=== PATIENT | female | born 1995 | race Caucasian/White ===

== ENCOUNTER → 2017-11-09 15:41 | Outpatient (CLI) | payer BC, SELFPAY ==
[2017-11-12 12:12] LABS: HPV Reflexed? NOT INDICATED
== END ==
PROVIDERS: Family Provider Family Medicine; PCP Family Medicine; Visit Provider Nurse Practitioner Women's Health
DX: Z12.4 Encounter for screening for malignant neoplasm of cervix (principal)
CPT/HCPCS: 88175; G0145

== ENCOUNTER → 2018-12-27 16:53 | Outpatient (CLI) | payer OTHER, SELFPAY ==
[2018-12-27 11:46] VITALS: BMI 32.8
[2018-12-27 21:39] LABS: Chlamydia Trachomatis by PCR Negative (Negative); Neisserai gonorrhoeae by PCR Negative (Negative); Probe Check PASS; Sample Adequacy Control PASS; Specimen Processing Control PASS
== END ==
PROVIDERS: Family Provider Family Medicine; PCP Family Medicine; Referring Provider Nurse Practitioner Women's Health; Visit Provider Nurse Practitioner Women's Health
DX: Z11.3 Encounter for screening for infections with a predominantly sexual mode of transmission (principal)
CPT/HCPCS: 87491; 87591

== ENCOUNTER → 2021-06-25 16:15 | Outpatient (CLI) | payer OTHER, SELFPAY ==
[2021-07-02 08:44] LABS: HPV Reflexed? NOT INDICATED
== END ==
PROVIDERS: PCP Family Medicine; Referring Provider Nurse Practitioner Women's Health; Visit Provider Nurse Practitioner Women's Health
DX: Z12.4 Encounter for screening for malignant neoplasm of cervix (principal)
CPT/HCPCS: 88175; G0145

== ENCOUNTER → 2022-08-05 | Outpatient (CLI) | payer OTHER, SELFPAY ==
[2022-08-06 22:06] LABS: Chlamydia By Nucleic Acid AMP Negative (Negative)
[2022-08-06 22:36] LABS: Gonococcus By Nucleic Acid AMP Negative (Negative)
== END | disposition home or self-care (01) ==
PROVIDERS: PCP Family Medicine; Visit Provider Obstetrics & Gynecology
DX: Z34.90 Encounter for supervision of normal pregnancy, unspecified, unspecified trimester (principal)
CPT/HCPCS: 87086; 87491; 87591

== ENCOUNTER → 2022-09-03 | Outpatient (CLI) | payer OTHER, SELFPAY ==
[2022-09-03 13:04] LABS: Absolute Lymphocyte Count 2.06 X10^3/uL (0.83-4.51); Absolute Neutrophil Count 6.5 X10^3/uL (2.0-7.7); Basophil# 0.03 X10^3/uL; Basophil% 0.3 % (0-1); Eosinophil# 0.09 X10^3/uL; Hematocrit 37.2 % (37-47); Hemoglobin 12.2 g/dL (12.0-15.0); Lymphocyte # 2.06 X10^3/ul (0.83-4.51); Lymphocyte % 21.8 % (19-41); Mean Corp Hgb Conc 32.8 g/dL (32-36); Mean Corpuscular Hgb 26.9 pg (27.0-32.0); Mean Corpuscular Volume 82.1 fL (81-99); Mean Platelet Vol. 10.2 fl (6.2-12.0); Monocyte# 0.64 X10^3/uL; Monocyte% 6.8 % (0-10); NRBC Flagged by Analyzer 0 % (0-5); Neutrophil # 6.48 X10^3/uL (2.7-7.7); Neutrophil % 68.6 % (47-70); Platelet Count 287 K/mm3 (150-450); RBC Distribution Width CV 13.1 % (11.6-14.6); RBC Distribution Width SD 38.9 fl (35.1-43.9); Red Blood Count 4.53 M/mm3 (4.2-5.4); White Blood Count 9.4 K/mm3 (4.4-11.0)
[2022-09-03 13:32] LABS: Glucose Challenge Gest 1H 50g 104 mg/dL (70-140)
[2022-09-03 14:16] LABS: HIV - WCH Non-Reactive (Nonreactive); Hepatitis B Surface Antigen Non-Reactive (Nonreactive); Hepatitis C Antibody Non-Reactive (Nonreactive); Rubella IgG Reactive (Nonreactive); Syphilis Antibodies Non-reactive
== END | disposition home or self-care (01) ==
PROVIDERS: Referring Provider Obstetrics & Gynecology; Visit Provider Obstetrics & Gynecology
DX: O99.210 Obesity complicating pregnancy, unspecified trimester (principal)
CPT/HCPCS: 36415; 82950; 85025; 86703; 86762; 86780; 86803; 86850; 86900; 86901; 87340

== ENCOUNTER → 2022-10-08 | Outpatient (CLI) | payer OTHER, SELFPAY ==
--- NOTE | 2022-10-08 13:09 | US_ITS ---
STUDY: SECOND AND THIRD TRIMESTER OBSTETRICAL ULTRASOUND REASON FOR EXAM: Female, 27 years old anatomy LMP: May 28, 2022. TECHNIQUE: Transabdominal and Transvaginal TECHNICAL QUALITY: Adequate. PRIOR ULTRASOUND: None. FINDINGS: There is a single intrauterine fetus. The fetus is in a variable presentation. There is demonstrated cardiac activity with a heart rate of 159 bpm. There is a normal amniotic fluid volume. The largest amniotic fluid pocket measures 7.2 cm x 4.8 cm. The amniotic fluid index (KEVEN) is within normal limits. The placenta is anterior in location and is not low lying. There are Grade 0 placental changes. The cervix measures 3.8 cm in length. The bilateral adnexal regions are normal. BIOMETRY: BPD: 4.26 cm: 18 weeks, 6 days HC: 15.78 cm: 18 weeks, 5 days AC: 13.73 cm: 19 weeks, 1 days FL: 3.08 cm: 19 weeks, 4 days CI: 77% FL/BPD: 72% FL/HC: FL/AC: 22% HC/AC: 1.15 age by current US: 19 weeks, 0 days. SANTOSH by current US: March 04, 2023. Estimated weight: 284 grams, +/- 43 grams, 62 %. Age by LMP: 19 weeks, 0 days. SANTOSH by LMP: March 04, 2023. ANATOMY: Gender: Female Cranium: Normal lateral ventricles. Normal choroid plexus. Normal cerebellum. Normal cisterna magna. Normal face, nose and lips. Chest: Normal 4-chamber heart. Abdomen/Pelvis: Normal diaphragm. Normal stomach. Normal abdominal wall. Normal cord insertion. Normal 3 vessel cord. Normal kidneys. Normal bladder. Spine: Normal cervical spine. Normal thoracic spine. Normal lumbar spine. Normal sacrum. Extremities: Normal bilateral upper extremities. Normal bilateral lower extremities. US/OB Anatomy Scan IMPRESSION: Single live uterine gestation with a mean gestational age of 19 weeks. Electronically Signed: Alireza Mayorga MD at 13:55 EDT ,
== END | disposition home or self-care (01) ==
PROVIDERS: Visit Provider Obstetrics & Gynecology
DX: Z34.92 Encounter for supervision of normal pregnancy, unspecified, second trimester (principal)
CPT/HCPCS: 76805; 76817

== ENCOUNTER → 2022-12-10 | Outpatient (CLI) | payer OTHER, SELFPAY ==
[2022-12-10 15:34] LABS: Absolute Lymphocyte Count 1.97 X10^3/uL (0.83-4.51); Absolute Neutrophil Count 7.3 X10^3/uL (2.0-7.7); Basophil# 0.03 X10^3/uL; Basophil% 0.3 % (0-1); Hematocrit 37.7 % (37-47); Hemoglobin 11.8 g/dL (12.0-15.0); Lymphocyte # 1.97 X10^3/ul (0.83-4.51); Lymphocyte % 19.4 % (19-41); Mean Corp Hgb Conc 31.3 g/dL (32-36); Mean Corpuscular Hgb 27.4 pg (27.0-32.0); Mean Corpuscular Volume 87.7 fL (81-99); Mean Platelet Vol. 10.4 fl (6.2-12.0); Monocyte# 0.66 X10^3/uL; Monocyte% 6.5 % (0-10); NRBC Flagged by Analyzer 0 % (0-5); Neutrophil # 7.32 X10^3/uL (2.7-7.7); Neutrophil % 71.9 % (47-70); Platelet Count 303 K/mm3 (150-450); RBC Distribution Width CV 13.9 % (11.6-14.6); White Blood Count 10.2 K/mm3 (4.4-11.0)
[2022-12-10 16:24] LABS: Glucose Challenge Gest 1H 50g 116 mg/dL (70-140)
[2022-12-10 16:58] LABS: HIV - WCH Non-Reactive (Nonreactive); Syphilis Antibodies Non-reactive
== END | disposition home or self-care (01) ==
LOC: LAB 14:33
PROVIDERS: Visit Provider Obstetrics & Gynecology
DX: O09.90 Supervision of high risk pregnancy, unspecified, unspecified trimester (principal); Z3A.00 Weeks of gestation of pregnancy not specified
CPT/HCPCS: 36415; 82950; 85025; 86703; 86780; 86900; 86901

== ENCOUNTER → 2023-02-05 | Outpatient (CLI) | payer OTHER, SELFPAY | END | disposition home or self-care (01) | LOC: LABSPEC 16:23 | PROVIDERS: Referring Provider Obstetrics & Gynecology; Visit Provider Obstetrics & Gynecology | DX: O09.90 Supervision of high risk pregnancy, unspecified, unspecified trimester (principal); Z3A.00 Weeks of gestation of pregnancy not specified | CPT/HCPCS: 87081 ==

== ENCOUNTER 2023-03-04 06:33 | Inpatient (IN) | payer OTHER, SELFPAY ==
[2023-03-04] VITALS (61 sets, daily range): BP systolic 97–141; BP diastolic 52–87; PULSE 48–143; TEMP 36.1–36.6; O2SAT 80–100; BMI 42.9
--- NOTE | 2023-03-04 08:13 | HP.PCM.OB_ITS ---
HPI - General General Date of Admission: 03/04/23 HPI Narrative GIN OLEA, is a 28 F who presents IAL 5 cm dilated regular ctx no vb lof admits good fm Maternal Data Information SANTOSH Calculator Estimated Delivery Date Method Current WG Current Estimate 03/04/23 LMP (Certain) 40w 0d Other Estimates 03/04/23 Ultrasound #1 40w 0d PFSH PFSH Medical History Hx: UTI (urinary tract infection) Home Medications multivit-min no.71-iron fum 28 mg-folate no.1 1 mg-dha 300 mg capsule (PNV- [place]) 1 cap PO 07/30/22 [History Last Taken 03/03/23] Allergy/AdvReac Type Severity Reaction Status Date / Time No Known Allergies Allergy Verified 03/04/23 08:01 Family History Father Hypertension Grandfather Hypertension Social History adopted: No household members: spouse housing: house current occupational status: employed 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 current occupational exposures/hazards: No pets and animals: Yes (Not managing litterbox ) pets and animals: cat(s) and dog(s) history of recent travel: No sexually active: Yes Smoking Status: Never smoker alcohol intake: current details: occasionally- not while substance use type: does not use well-balanced diet: daily or most days caffeine: Yes (occasionally) Type: coffee Number of servings: 1 eating out: 1-3 times/week during the past year weight has: remained stable what type of physical activity do you participate in: walking, yoga and weight training frequency: 1-2 times per week duration: 15-30 minutes/day fam/latter-day: Faith seatbelt use: always do you feel safe at home: Yes additional social history: - Augustine- Currently in [facility] 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 History 1 Elective abortions Hx Para 0 Spontaneous abortions Hx # Term Pregnancies Ectopic pregnancies Hx # Pregnancies Multiple births # of living children Visit Details Expected Delivery Route/Plan Labor Preferences- CB/BF classes: [] labor support person: [] labor intervention preferences: [] pain management options preferred: [] cut cord/dad catch: [] : [] PP control planned: [] discussed possible routes of delivery and associated risks: [] special requests: [] Plans Covid status: discussed Flu vaccine: discussed Tdap vaccine: given Rhogam: given LARC form signed: [] movement and labor precautions reviewed. Problem list reviewed and updated with the most current plan of care details and appropriate orders placed. Relevant counseling for the gestational age provided. Continue routine care and follow up unless otherwise noted in visit notes/problem list details OB Flowsheet Initial Weight: Not Recorded Date -?-?-?-?-?-?-?--?-?-?-?-?- EGA Weight BP Urine Prot -?-?-?-?-?-?-?-?-?-?-?-?- Glucose FHR FuHt Pres Dilation -?-?-?-?-?-?-?-?-?-?-?-?- Effaced St Visit Note 08/05/22 -?-?-?-?-?-?-?-?-?-?-?-?- 9w 6d 232 lb 118/76 -?-?-?-?-?-?-?-?-?-?-?-?- 189 -?-?-?-?-?-?-?-?-?-?-?-?- JV- single live IUP measuring 9 weeks 6 days consistent with LMP. undecided about NIPT. 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 no complaints. 10/30/22 -?-?-?-?-?-?-?-?-?-?-?-?- 22w 1d 234 lb 2 oz 118/77 Nega tive -?-?-?-?-?-?-?-?-?-?-?-?- Negative 150 -?-?-?-?-?-?-?-?-?-?-?-?- SM- no vb lof go od fm no regular ctx 11/27/22 -?-?-?-?-?-?-?-?-?-?-?-?- 26w 1d 237 lb 8 oz 101/60 Nega tive -?-?-?-?-?-?-?-?-?-?-?-?- Negative 138 27 -?-?-?-?-?-?-?-?-?-?-?-?- JV- no lof, vagi nal bleeding, or dec fm. glucola ordered. 12/10/22 -?-?-?-?-?-?-?-?-?-?-?-?- 28w 0d 241 lb 2 oz 106/70 Nega tive -?-?-?-?-?-?-?-?-?-?-?-?- Negative 140 29 -?-?-?-?-?-?-?-?-?-?-?-?- SM- no vb lof go od fm no regular ctx cbc gct rhogam tdap today 12/24/22 -?-?-?-?-?-?-?-?-?-?-?-?- 30w 0d 242 lb 110/69 Negative -?-?-?-?-?-?-?-?-?-?-?-?- Negative 142 30 -?-?-?-?-?-?-?-?-?-?-?-?- JV- rhogam given last visit. no complaints. plan for nsts at 34 weeks weekly for obesity. 01/08/23 -?-?-?-?-?-?-?-?-?-?-?-?- 32w 1d 247 lb 107/61 Negative -?-?-?-?-?-?-?-?-?-?-?-?- Negative 149 33 Transverse -?-?-?-?-?-?-?-?-?-?-?-?- JV- no lof, vagi nal bleeding, or dec fm. nst next visit. 01/22/23 -?-?-?-?-?-?-?-?-?-?-?-?- 34w 1d 249 lb 8 oz 124/70 Nega tive -?-?-?-?-?-?-?-?-?-?-?-?- Negative 155 35 -?-?-?-?-?-?-?-?-?-?-?-?- KW-+fm, No vb/lo f/ctx. some swelling in feet when working-recommended compression hose. GBS discussed. LARC done 01/29/23 -?-?-?-?-?-?-?-?-?-?--?-?- 35w 1d 250 lb 128/82 Negative -?-?-?-?-?-?-?-?-?-?-?-?- Negative 135 -?-?-?-?-?-?-?-?-?-?-?-?- Lc- reactive nst toady.no lof/vb/ctx. 02/05/23 -?-?-?-?-?-?-?-?-?-?-?-?- 36w 1d 253 lb 125/73 Negative -?-?-?-?-?-?-?-?-?-?-?-?- Negative 130 36 Cephalic 0 -?-?-?-?-?-?-?-?-?--?-?-?-
--- NOTE | 2023-03-04 08:13 | PCM.HP.OB ---
HPI - General General Date of Admission: 03/04/23 HPI Narrative GIN OLEA, is a 28 F who presents IAL 5 cm dilated regular ctx no vb lof admits good fm Maternal Data Information SANTOSH Calculator Estimated Delivery Date Method Current WG Current Estimate 03/04/23 LMP (Certain) 40w 0d Other Estimates 03/04/23 Ultrasound #1 40w 0d PFSH PFSH Medical History Hx: UTI (urinary tract infection) Home Medications multivit-min no.71-iron fum 28 mg-folate no.1 1 mg-dha 300 mg capsule (PNV-[place]) 1 cap PO 07/30/22 [History Last Taken 03/03/23] Allergy/AdvReac Type Severity Reaction Status Date / Time No Known Allergies Allergy Verified 03/04/23 08:01 Family History Father Hypertension Grandfather Hypertension Social History adopted: No household members: spouse housing: house current occupational status: employed 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 current occupational exposures/hazards: No pets and animals: Yes (Not managing litterbox ) pets and animals: cat(s) and dog(s) history of recent travel: No sexually active: Yes Smoking Status: Never smoker alcohol intake: current details: occasionally- not while substance use type: does not use well-balanced diet: daily or most days caffeine: Yes (occasionally) Type: coffee Number of servings: 1 eating out: 1-3 times/week during the past year weight has: remained stable what type of physical activity do you participate in: walking, yoga and weight training frequency: 1-2 times per week duration: 15-30 minutes/day fam/cheondoism: Alevism seatbelt use: always do you feel safe at home: Yes additional social history: - [place]- 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 1 Elective abortions Hx Para 0 Spontaneous abortions Hx # Term Pregnancies Ectopic pregnancies Hx # Pregnancies Multiple births # of living children Visit Details Expected Delivery Route/Plan Labor Preferences- CB/BF classes: [] labor support person: [] labor intervention preferences: [] pain management options preferred: [] cut cord/dad catch: [] : [] PP control planned: [] discussed possible routes of delivery and associated risks: [] special requests: [] Plans Covid status: discussed Flu vaccine: discussed Tdap vaccine: given Rhogam: given LARC form signed: [] movement and labor precautions reviewed. Problem list reviewed and updated with the most current plan of care details and appropriate orders placed. Relevant counseling for the gestational age provided. Continue routine care and follow up unless otherwise noted in visit notes/problem list details OB Flowsheet Initial Weight: Not Recorded Date <del>?</del> EGA Weight BP Urine Prot <del>?</del> Glucose FHR FuHt Pres Dilation <del>?</del> Effaced St Visit Note 08/05/22 <del>?</del> 9w 6d 232 lb 118/76 <del>?</del> 189 <del>?</del> JV- single live IUP measuring 9 weeks 6 days consistent with LMP. undecided about NIPT. 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 no complaints. 10/30/22 <del>?</del> 22w 1d 234 lb 2 oz 118/77 Negative <del>?</del> Negative 150 <del>?</del> SM- no vb lof good fm no regular ctx 11/27/22 <del>?</del> 26w 1d 237 lb 8 oz 101/60 Negative <del>?</del> Negative 138 27 <del>?</del> JV- no lof, vaginal bleeding, or dec fm. glucola ordered. 12/10/22 <del>?</del> 28w 0d 241 lb 2 oz 106/70 Negative <del>?</del> Negative 140 29 <del>?</del> SM- no vb lof good fm no regular ctx cbc gct rhogam tdap today 12/24/22 <del>?</del> 30w 0d 242 lb 110/69 Negative <del>?</del> Negative 142 30 <del>?</del> JV- rhogam given last visit. no complaints. plan for nsts at 34 weeks weekly for obesity. 01/08/23 <del>?</del> 32w 1d 247 lb 107/61 Negative <del>?</del> Negative 149 33 Transverse <del>?</del> JV- no lof, vaginal bleeding, or dec fm. nst next visit. 01/22/23 <del>?</del> 34w 1d 249 lb 8 oz 124/70 Negative <del>?</del> Negative 155 35 <del>?</del> KW-+fm, No vb/lof/ctx. some swelling in feet when working-recommended compression hose. GBS discussed. LARC done 01/29/23 <del>?</del> 35w 1d 250 lb 128/82 Negative <del>?</del> Negative 135 <del>?</del> Lc- reactive nst toady.no lof/vb/ctx. 02/05/23 <del>?</del> 36w 1d 253 lb 125/73 Negative <del>?</del> Negative 130 36 Cephalic 0 <del>?</del> JV- no lof, vaginal bleeding, or dec fm. contractions on monitor. gbs collected. 02/12/23 <del>?</del> 37w 1d 253 lb 6 oz 104/72 Negative <del>?</del> Negative 140 37 <del>?</del> SM- no vb lof good fm no regular ctx 02/19/23 <del>?</del> 38w 1d 257 lb 8 oz 118/76 Negative <del>?</del> Negative 145 38 Cephalic 1 <del>?</del> 50 -3 JV- no lof, vaginal bleeding, or dec fm. NST reactive. 02/25/23 <del>?</del> 39w 0d 256 lb 123/77 Negative <del>?</del> Negative 150 39 Cephalic 1 <del>?</del> -3 JV- unable to reach internal os today. bedside scan confirmed vtx. reactive nst. 03/03/23 <del>?</del> 39w 6d 258 lb 8 oz 118/76 Negative <del>?</del> Negative 140 39 Cephalic 2 <del>?</del> 60 -2 JV- NST reactive. membranes bulging today with bloody show. plan 41 week IOL if no labor by next NST FHR Rate Baby A Baseline: 140 Variability:: Moderate Accelerations:: 15 x 15 Decelerations:: None NST Reactive:: Yes FHR Category:: Category I Uterine Activity:: q3-5 ROS Constitutional Constitutional: Reports systems reviewed and no addt'l complaints, except as documented ENT HEENT: Reports systems reviewed and no addt'l complaints, except as documented Cardiovascular Cardiovascular: Reports systems reviewed and no addt'l complaints, except as documented Respiratory/Chest Respiratory/Chest: Reports systems reviewed and no addt'l complaints, except as documented Gastrointestinal Gastrointestinal: Reports systems reviewed and no addt'l complaints, except as documented and nausea; Denies abdominal pain Genitourinary Genitourinary: Reports systems reviewed and no addt'l complaints, except as documented, contractions Details: present and frequency (regular ) and movement Details: present Musculoskeletal Musculoskeletal: Reports systems reviewed and no addt'l complaints, except as documented Integumentary Integumentary: Reports as per HPI Neurologic Neurologic: Reports systems reviewed and no addt'l complaints, except as documented Endocrine Endocrinology: Reports systems reviewed and no addt'l complaints, except as documented Vital Signs Vital Signs Vital Signs: 03/04/23 06:44 03/04/23 06:44 03/04/23 06:45 Temperature Temperature Source Pulse Rate 86 Blood Pressure 139/78 H BP Systolic 139 BP Diastolic 78 Pulse Ox 98 03/04/23 06:45 03/04/23 06:43 03/04/23 06:43 Temperature Temperature Source Temporal Pulse Rate 81 Blood Pressure BP Systolic BP Diastolic Pulse Ox 99 03/04/23 06:43 03/04/23 07:39 03/04/23 07:39 Temperature 97.5 F L Temperature Source Pulse Rate 88 Blood Pressure 112/76 BP Systolic 112 BP Diastolic 76 Pulse Ox Weight Weight: 258 lb Body Mass Index (BMI) 42.9 Physical Exam Const alert, oriented x3 and healthy appearing Constitutional Narrative: uncomfortable with contractions HEENT normocephalic and moist oral mucous membranes Head and Scalp: atraumatic Neck full ROM, no lymphadenopathy, supple and thyroid normal General: trachea midline Thyroid: thyroid normal Lymph Lymphatic: no lymphadenopathy noted Chest inspection of chest normal Resp normal respiratory effort Cardio regular rate GI normal to inspection, nondistended, normoactive bowel sounds, soft to palpation and non-tender Inspection: gravid external exam normal Bimanual Exam - Vag & Uterus: uterus non-tender Manual OB Exam: estimated gestational size appropriate, presentation cephalic, dilated, effaced and station Extremity normal to inspection General Extremity: Negative for edema Skin no rashes or lesions noted Neuro deep tendon reflexes 2+ bilaterally Motor Exam: strength 5/5 throughout and clonus absent Psych mental status grossly normal Labs Labs Labs: Blood Type A NEGATIVE Antibody Screen NEGATIVE Hct 39.4 % (37-47) Hgb 12.8 g/dL (12.0-15.0) Obstetrics US Syphilis Total Ab Non-reactive Rubella IgG Antibody Reactive (Nonreactive) Hep Bs Antigen Non-Reactive (Nonreactive) Chlamydia DNA (AUDREY) Negative (Negative) Neisseria gonorrhoeae DNA (AUDREY) Negative (Negative) HIV 1&2 Antibody Non-Reactive (Nonreactive) Glucose 1 Hr 50 gm 116 mg/dL (70-140) Assessment & Plan (1) : QUALIFIERS: Weeks of gestation: 39 weeks Qualified Code(s): Z3A.39 - 39 weeks gestation of COMMENT: GBS negative. declined genetic & carrier testing, nl anatomy (2) Supervision of high risk , antepartum: COMMENT: PRR , SANTOSH 03/04/23 girl [place] (3) Obesity affecting : COMMENT: 1 TM GCT encouraged healthy weight gain for BMI 40 needs nsts at 34 weeks weekly (4) Rh negative status during : COMMENT: Rhogam at 28 weeks and PRN given 6/8 (5) Active labor at term: PLAN: Plan Patient presents IAL, plan expectant management for , pitocin/AROM PRN if needed. Pain management: prefers minimal intervention. GBS neg. Management of any complications: none I have reviewed the [facility] and made any clinically relevant updates.
[2023-03-04] MEDS: 0.9% Saline Lock 10 ML Syringe IV (08:21)
[2023-03-04 08:47] LABS: Absolute Lymphocyte Count 1.42 X10^3/uL (0.83-4.51); Absolute Neutrophil Count 10.4 X10^3/uL (2.0-7.7); Basophil# 0.04 X10^3/uL; Basophil% 0.3 % (0-1); Eosinophil# 0.02 X10^3/uL; Eosinophils% 0.2 % (0-5); Hematocrit 39.4 % (37-47); Hemoglobin 12.8 g/dL (12.0-15.0); Lymphocyte # 1.42 X10^3/ul (0.83-4.51); Lymphocyte % 11.3 % (19-41); Mean Corp Hgb Conc 32.5 g/dL (32-36); Mean Corpuscular Hgb 27.1 pg (27.0-32.0); Mean Corpuscular Volume 83.3 fL (81-99); Mean Platelet Vol. 11.7 fl (6.2-12.0); Monocyte% 4.8 % (0-10); NRBC Flagged by Analyzer 0 % (0-5); Neutrophil # 10.36 X10^3/uL (2.7-7.7); Neutrophil % 82.8 % (47-70); Platelet Count 244 K/mm3 (150-450); RBC Distribution Width CV 14.1 % (11.6-14.6); RBC Distribution Width SD 42.8 fl (35.1-43.9); Red Blood Count 4.73 M/mm3 (4.2-5.4); White Blood Count 12.5 K/mm3 (4.4-11.0)
[2023-03-04 08:58] LABS: AST(SGOT) 20 U/L (15-37); Alanine Aminotransfer ALT/SGPT 16 U/L (13-56); Creatinine, Serum 0.58 mg/dL (0.55-1.02); EST Glomerular Filtration Rate 132 mL/min (>60); Est Glom Filt Rate - Afr Amer 160 mL/min (>60); Estimated Creatinine Clearance 129.94 ml/min; Uric Acid 6.1 mg/dL (2.6-6.0)
[2023-03-04 09:31] LABS: Syphilis Antibodies Non-reactive
[2023-03-04 10:46] LABS: Protein, Urine (Random) 64.5 mg/dL (<11.9); Protein:Creat Ratio 222 mg/g CRE (0-200)
[2023-03-04] MEDS: Mag Hydrox/Al Hydrox/Simeth 30 ML UDC PO (12:15)
--- NOTE | 2023-03-04 20:36 | OP.PCM_ITS ---
Assessment & Plan (1) : QUALIFIERS: Weeks of gestation: 39 weeks Qualified Code(s): Z3A.39 - 39 weeks gestation of COMMENT: GBS negative. declined genetic & carrier testing, nl anatomy (2) Supervision of high risk , antepartum: COMMENT: PRR , SANTOSH 03/04/23 girl [place] (3) Obesity affecting : COMMENT: 1 TM GCT encouraged healthy weight gain for BMI 40 needs nsts at 34 weeks weekly (4) Rh negative status during : COMMENT: Rhogam at 28 weeks and PRN given 12/10 (5) Active labor at term: (6) Vaginal delivery: COMMENT: SM IAL 40 girl [place] Maternal Data Information SANTOSH Calculator Estimated Delivery Date Method Current WG Current Estimate 03/04/23 LMP (Certain) 40w 0d Other Estimates 03/04/23 Ultrasound #1 40w 0d Vaginal Delivery Operative Information Date of Procedure: 03/04/23 Pre-Operative Diagnosis: see a/p diagnoses Post-Operative Diagnosis: same Surgery / Procedure Performed: Spontaneous Vaginal Delivery Type of Anesthesia: None Special Medications: none Estimated Blood Loss: 200 Fluids Replaced: crystalloid Findings Description of Procedure: Patient began pushing and delivered the head in the COLEMAN presentation. The head was delivered atraumatically . The anterior and posterior shoulders delivered without complication followed by the rest of the infant and the infant was placed on the maternal abdomen. Delayed cord clamping was employed for approximately 60 seconds. Cord was clamped and cut and gentle traction was applied to the cord and the placenta delivered spontaneously immediately following it was noted to be intact with three-vessel cord. The perineum and vagina were inspected and noted to have no laceration. EBL was 200 cc. Patient and infant tolerated delivery well. Amniotic Fluid Description: Moderate meconium Placental Delivery Description: Spontaneous Placenta Disposition: [facility] Cord Vessel Description: 3 Vessels Cord Entanglement: None Delayed Cord Clamping: Yes Post Vaginal Delivery Medications Given After Delivery: IV Pitocin Episiotomy Description: None Complication Complications: None Procedures Urinary/Genital [id number]: [id number] Vaginal Delivery [facility]
[2023-03-04] MEDS: Oxytocin 10 UNITS/ML Vial IM (21:13)
[2023-03-04] MEDS: Oxytocin 15 Units/NS 250ml 15 UNITS/250 ML IV.SOLN 83 UNITS IV (21:14)
--- NOTE | 2023-03-04 21:16 | DCINST_ITS ---
Discharge Instructions Diet Discharge Diet: No restrictions Activity Discharge Activity: Return to Normal Activity, May Not Drive (while taking narcotic pain medications.) and May Shower May resume sexual activity in: 4-6 weeks Dressing / Incision Call your doctor if your incision/area has: Continuous Slow Oozing, Sudden Increased Bleeding, Increased Pain/ Swelling, Increased Redness and Foul Smelling Discharge Follow Up Care Please Follow Up With: Cony Pride MD When: Call [phone] to make an appointment with your doctor in 6 weeks. If you had elevated blood pressure or 4th degree laceration, you will need to be seen in 2 weeks. Test Results: Test results from this visit will be discussed in further detail at your follow- up appointment, if applicable. Discharge Plan Admission Admit Date/Time: 03/04/23 06:33 Attending Provider: Cony Pride Primary Care Provider: Care Physician,No Primary Discharge Orders/Prescriptions Prescriptions: No Action PNV-[place] 28-1-300 mg capsule 1 cap PO Referrals / Follow Up: Care Physician,No Primary [Primary Care Provider] -
[2023-03-04] MEDS: Naproxen 500 MG Tablet PO (23:32)
[2023-03-05] MEDS: SimETHICONE 80 MG Chewable Tablet PO (04:52)
[2023-03-05 05:00] VITALS: BP 119/57; PULSE 96; RESP 16; TEMP 36.4
[2023-03-05] MEDS: Acetaminophen 500 MG Tablet 1000 MG PO ×2 (05:28→17:18)
--- NOTE | 2023-03-05 08:34 | PCM.PN.OB ---
Subjective Subjective Patient doing well without complaints. Tolerating PO. Ambulating and voiding without difficulty. Feeding well. Denies chest pain, shortness of breath, calf pain/swelling, fevers, chills, lightheadedness. Objective Data Objective Data Vital Signs: Vital Signs Temp Pulse Resp BP Pulse Ox O2 Del Method 97.5 F L 96 16 119/57 L 99 Room Air 03/05/23 05:00 03/05/23 05:00 03/05/23 05:00 03/05/23 05:00 03/04/23 23:10 03/05/23 05:00 Oxygen Delivery Method Room Air Weight: 258 lb Body Mass Index (BMI) 42.9 Intake & Output: Intake and Output for Last 24 Hours 03/03/23 03/04/23 03/05/23 23:59 23:59 23:59 Intake Total 208.88 / 208.88 17.98 / 17.98 Output Total 200 / 200 1200 / 1200 Balance 8.88 / 8.88 -1182.02 / -1182.02 Lab / Micro Data Attestation: I reviewed the patient's lab results. 03/04/23 07:35 03/04/23 07:35 Labs: Laboratory Results - last 24 hr 03/04/23 07:35: WBC 12.5 H, RBC 4.73, Hgb 12.8, Hct 39.4, MCV 83.3, MCH 27.1, MCHC 32.5, RDW Std Deviation 42.8, RDW Coeff of [place] 14.1, Plt Count 244, MPV 11.7, Immature Gran % (Auto) 0.600, Neut % (Auto) 82.8 H, Lymph % (Auto) 11.3 L, [place] % (Auto) 4.8, Eos % (Auto) 0.2, Baso % (Auto) 0.3, Absolute Neuts (auto) 10.4 H, Absolute Lymphs (auto) 1.42, Nucleated RBC % 0, Creatinine 0.58, Estim Creat Clear Calc 129.94, Est GFR (MDRD) Af Amer 160, Est GFR (MDRD) Non-Af 132, Uric Acid 6.1 H, AST 20, ALT 16, Syphilis Total Ab Non-reactive, Blood Type A NEGATIVE, Antibody Screen NEGATIVE 03/04/23 09:45: U Random Total Protein 64.5 H, Urine Creatinine 291.00, Protein/Creatinin Ratio 222 H 03/05/23 00:55: Screen NEGATIVE, Baby's Blood Type A POSITIVE, Baby's BRISSA NEGATIVE ROS Constitutional Constitutional: Reports systems reviewed and no addt'l complaints, except as documented; Denies anorexia or headache(s) Cardiovascular Cardiovascular: Reports systems reviewed and no addt'l complaints, except as documented; Denies dizziness, dyspnea, nausea or tachypnea Respiratory/Chest Respiratory/Chest: Reports systems reviewed and no addt'l complaints, except as documented; Denies cough, dyspnea, shortness of breath at rest or tachypnea Gastrointestinal Gastrointestinal: Reports systems reviewed and no addt'l complaints, except as documented; Denies abdominal pain, constipation or nausea Genitourinary Genitourinary: Reports systems reviewed and no addt'l complaints, except as documented; Denies burning urination, difficulty urinating, dysuria, urinary frequency or urinary incontinence Musculoskeletal Musculoskeletal: Reports systems reviewed and no addt'l complaints, except as documented Integumentary Integumentary: Reports systems reviewed and no addt'l complaints, except as documented Neurologic Neurologic: Reports systems reviewed and no addt'l complaints, except as documented; Denies abnormal speech, dizziness or headache(s) Psychiatric Psychiatric: Reports systems reviewed and no addt'l complaints, except as documented Endocrine Endocrinology: Reports systems reviewed and no addt'l complaints, except as documented Hematologic/Lymphatic Hematologic/Lymphatic: Reports systems reviewed and no addt'l complaints, except as documented Physical Exam Const alert, oriented x3 and no apparent distress Neck full ROM Resp normal respiratory effort, normal air movement and no retractions Effort and Inspection: able to speak in complete sentences and symmetric chest movement GI soft to palpation Bladder / Kidney Exam: bladder normal to palpation Uterus Palpation: uterus fundus Extremity normal to inspection and full ROM Psych mental status grossly normal, thought process normal and cooperative Assessment & Plan (1) Vaginal delivery: COMMENT: SM IAL 40 girl [place] PLAN: s/p PPD # 1 1. routine post delivery care 2. breast feeding- support given 3. rh positive 4. rubella immune (2) Rh negative status during : COMMENT: Rhogam at 28 weeks and PRN given 6/8 Charges/Coding Multi Select Codes Urinary/Genital Urinary/Genital CPT Codes: No Charge
[2023-03-05 09:30] VITALS: BP 96/47; PULSE 90; RESP 16; TEMP 36.7; O2SAT 97
[2023-03-05] MEDS: Naproxen 500 MG Tablet PO ×2 (09:33→19:46)
[2023-03-05 11:54] VITALS: BP 121/65; PULSE 94; RESP 16; TEMP 36.6; O2SAT 97
[2023-03-05 16:00] VITALS: BP 113/60; PULSE 75; RESP 14; TEMP 36.6; O2SAT 97
[2023-03-05 19:50] VITALS: BP 108/67; PULSE 76; RESP 16; TEMP 36.4; O2SAT 97
[2023-03-06 02:00] VITALS: BP 111/44; PULSE 78; RESP 16; TEMP 36.1; O2SAT 97
[2023-03-06 08:10] VITALS: BP 110/59; PULSE 83; RESP 16; TEMP 36.6
--- NOTE | 2023-03-06 09:26 | PN.OBGYN_ITS ---
Subjective Subjective Patient doing well without complaints. Tolerating PO. Ambulating and voiding without difficulty. Feeding well. Denies chest pain, shortness of breath, calf pain/swelling, fevers, chills, lightheadedness. Objective Data Objective Data Vital Signs: Vital Signs Temp Pulse Resp BP Pulse Ox O2 Del Method 97.8 F 83 16 110/59 L 97 Room Air 03/06/23 08:10 03/06/23 08:10 03/06/23 08:10 03/06/23 08:10 03/06/23 02:00 03/06/23 02:00 Oxygen Delivery Method Room Air Weight: 258 lb Body Mass Index (BMI) 42.9 Intake & Output: Intake and Output for Last 24 Hours 03/04/23 03/05/23 03/06/23 23:59 23:59 23:59 Intake Total 208.88 / 208.88 17.98 / 17.98 Output Total 200 / 200 1200 / 1200 Balance 8.88 / 8.88 -1182.02 / -1182.02 Lab / Micro Data 03/04/23 07:35 03/04/23 07:35 ROS Constitutional Constitutional: Reports systems reviewed and no addt'l complaints, except as documented; Denies anorexia or headache(s) Cardiovascular Cardiovascular: Reports systems reviewed and no addt'l complaints, except as documented; Denies dizziness, dyspnea, nausea or tachypnea Respiratory/Chest Respiratory/Chest: Reports systems reviewed and no addt'l complaints, except as documented; Denies cough, dyspnea, shortness of breath at rest or tachypnea Gastrointestinal Gastrointestinal: Reports systems reviewed and no addt'l complaints, except as documented; Denies abdominal pain, constipation or nausea Genitourinary Genitourinary: Reports systems reviewed and no addt'l complaints, except as documented; Denies burning urination, difficulty urinating, dysuria, urinary frequency or urinary incontinence Musculoskeletal Musculoskeletal: Reports systems reviewed and no addt'l complaints, except as documented Integumentary Integumentary: Reports systems reviewed and no addt'l complaints, except as documented Neurologic Neurologic: Reports systems reviewed and no addt'l complaints, except as docume nted; Denies abnormal speech, dizziness or headache(s) Psychiatric Psychiatric: Reports systems reviewed and no addt'l complaints, except as documented Endocrine Endocrinology: Reports systems reviewed and no addt'l complaints, except as documented Hematologic/Lymphatic Hematologic/Lymphatic: Reports systems reviewed and no addt'l complaints, except as documented Physical Exam Const alert, oriented x3 and no apparent distress Neck full ROM Resp normal respiratory effort, normal air movement and no retractions Effort and Inspection: able to speak in complete sentences and symmetric chest movement GI soft to palpation Bladder / Kidney Exam: bladder normal to palpation Uterus Palpation: uterus fundus firm Extremity normal to inspection and full ROM Psych mental status grossly normal, thought process normal and cooperative Assessment & Plan (1) Vaginal delivery: COMMENT: SM IAL 40 girl [place] PLAN: s/p PPD # 2 1. routine post delivery care 2. breast feeding- support given 3. rh positive 4. rubella immune 5 discharge home (2) Rh negative status during : COMMENT: Rhogam at 28 weeks and PRN given 12/10 Charges/Coding Multi Select Codes Urinary/Genital Urinary/Genital CPT Codes: No Charge
--- NOTE | 2023-03-06 09:28 | DCINST_ITS ---
Discharge Instructions Diet Discharge Diet: No restrictions Activity Discharge Activity: Return to Normal Activity May resume sexual activity in: 4-6 weeks Dressing / Incision Call your doctor if your incision/area has: Continuous Slow Oozing, Sudden Increased Bleeding, Increased Pain/ Swelling, Increased Redness and Foul Smelling Discharge Call your doctor if you observe: Fever of 101 or Higher, Coldness, Increased Pain, Numbness or Tingling, Change in Color, Inability to urinate, Inability to have a bowel movement, Using more than 1 pad per hour, Shortness of breath, Dizz iness, Fainting spells, Swelling in the ankles, Chest pain, Increased palpitations (irregular heartbeat), Calf discomfort and Uncontrolled pain Follow Up Care Please Follow Up With: Cony Pride MD When: Please call the office to schedule your follow up appointment in 6 weeks. If you had high blood pressure please call to schedule an appointment in 2 weeks. Test Results: Test results from this visit will be discussed in further detail at your follow- up appointment, if applicable. Discharge Plan Admission Admit Date/Time: 03/04/23 06:33 Attending Provider: Cony Pride Primary Care Provider: Care Physician,No Primary Discharge Orders/Prescriptions Prescriptions: No Action [facility] 28-1-300 mg capsule 1 cap PO Referrals / Follow Up: Care Physician,No Primary [Primary Care Provider] - Disposition Disposition (needs filled in before D/C Order can be placed): Home, Self Care
== END 2023-03-06 10:29 | disposition home or self-care (01) | DRG 807 ==
PROVIDERS: Obstetrics & Gynecology; Admitting Provider Obstetrics & Gynecology; Referring Provider Obstetrics & Gynecology; Visit Provider Obstetrics & Gynecology
DX: O77.0 Labor and delivery complicated by meconium in amniotic fluid (principal); Z37.0 Single live birth; O26.893 Other specified pregnancy related conditions, third trimester; O99.214 Obesity complicating childbirth; Z67.11 Type A blood, Rh negative; Z3A.39 39 weeks gestation of pregnancy
CPT/HCPCS: 59025; 59050; 76815; 82565; 82570; 84156; 84450; 84460; 84550; 85025; 85461; 86780; 86850; 86900; 86901; 99221; A4216; G0378; J2790

== ENCOUNTER → 2024-04-28 | Outpatient (CLI) | payer OTHER, SELFPAY ==
[2024-05-06 16:17] LABS: HPV Reflexed? NOT INDICATED
== END | disposition home or self-care (01) ==
LOC: LABSPEC 15:29
PROVIDERS: Referring Provider Obstetrics & Gynecology; Visit Provider Obstetrics & Gynecology
DX: Z12.4 Encounter for screening for malignant neoplasm of cervix (principal)
CPT/HCPCS: 88175; G0145

== ENCOUNTER → 2024-06-30 | Outpatient (CLI) | payer OTHER, SELFPAY ==
[2024-06-30 15:44] LABS: hCG Titer Quant., Serum 3695 mIU/mL (1-3)
== END | disposition home or self-care (01) ==
LOC: BWCLAB 14:59
PROVIDERS: Nurse Practitioner Women's Health; Referring Provider Advanced Practice Midwife; Visit Provider Advanced Practice Midwife
DX: O36.80X0 Pregnancy with inconclusive fetal viability, not applicable or unspecified (principal); Z3A.00 Weeks of gestation of pregnancy not specified
CPT/HCPCS: 36415; 84702; 86850; 86900; 86901

== ENCOUNTER → 2024-06-30 | Outpatient (CLI) | payer OTHER, SELFPAY ==
--- NOTE | 2024-06-30 15:15 | US_ITS ---
INDICATION: well being EXAMINATION: US OB Transvaginal TECHNIQUE: Transvaginal (for optimal evaluation of the adnexa) pelvic ultrasound was performed. Grayscale, spectral waveform, and color flow Doppler evaluation of the adnexa. COMPARISON: None. FINDINGS: UTERUS: Measures 10.3 cm in length.. RIGHT OVARY:: Not visualized. LEFT OVARY: Not visualized. FREE FLUID: None. INTRAUTERINE GESTATIONAL SAC(s) (size/shape): Single. Mean sac diameter of 1.1 mm. No adnexal ectopic visualized. US/Transvaginal w/Preg US IMPRESSION: Intrauterine of uncertain viability. There is an intrauterine gestational sac with no yolk sac or embryo. Recommend serial beta hCGs and follow-up OB ultrasound in 1-2 weeks. Electronically Signed: Jay Hartman MD at 16:53 EST ,
== END | disposition home or self-care (01) ==
LOC: US 15:14
PROVIDERS: Referring Provider Nurse Practitioner Women's Health; Visit Provider Nurse Practitioner Women's Health
DX: O36.80X0 Pregnancy with inconclusive fetal viability, not applicable or unspecified (principal); Z3A.00 Weeks of gestation of pregnancy not specified
CPT/HCPCS: 76817

== ENCOUNTER → 2024-07-02 | Outpatient (CLI) | payer OTHER, SELFPAY ==
[2024-07-02 11:49] LABS: hCG Titer Quant., Serum 3635 mIU/mL (1-3)
== END | disposition home or self-care (01) ==
LOC: LAB 10:36
PROVIDERS: Registered Nurse; Visit Provider Nurse Practitioner Women's Health
DX: O20.9 Hemorrhage in early pregnancy, unspecified (principal); Z3A.00 Weeks of gestation of pregnancy not specified
CPT/HCPCS: 36415; 84702

== ENCOUNTER → 2024-07-07 | Outpatient (CLI) | payer BC, SELFPAY ==
[2024-07-07 17:33] LABS: hCG Titer Quant., Serum 879 mIU/mL (1-3)
== END | disposition home or self-care (01) ==
LOC: BWCLAB 15:17
PROVIDERS: Obstetrics & Gynecology; Referring Provider Obstetrics & Gynecology; Visit Provider Obstetrics & Gynecology
DX: O20.9 Hemorrhage in early pregnancy, unspecified (principal); Z3A.00 Weeks of gestation of pregnancy not specified
CPT/HCPCS: 36415; 84702

== ENCOUNTER → 2024-08-17 | Outpatient (CLI) | payer BC, SELFPAY ==
[2024-08-17 13:11] LABS: hCG Titer Quant., Serum 1870 mIU/mL (1-3)
== END | disposition home or self-care (01) ==
LOC: BWCLAB 12:09
PROVIDERS: Referring Provider Obstetrics & Gynecology; Visit Provider Obstetrics & Gynecology
DX: N91.2 Amenorrhea, unspecified (principal); Z78.9 Other specified health status
CPT/HCPCS: 36415; 84702

== ENCOUNTER → 2024-08-19 | Outpatient (CLI) | payer BC, SELFPAY ==
[2024-08-19 12:52] LABS: hCG Titer Quant., Serum 3946 mIU/mL (1-3)
== END | disposition home or self-care (01) ==
LOC: MTLAB 11:16 → LAB 11:17
PROVIDERS: Referring Provider Obstetrics & Gynecology; Visit Provider Obstetrics & Gynecology
DX: N91.2 Amenorrhea, unspecified (principal); Z78.9 Other specified health status
CPT/HCPCS: 36415; 84702

== ENCOUNTER → 2024-08-24 | Outpatient (CLI) | payer BC, SELFPAY ==
--- NOTE | 2024-08-24 16:01 | US_ITS ---
PROCEDURE: TRANSVAGINAL W/PREG US REASON FOR EXAM: LMP: Unknown Dating. COMPARISON: None. FINDINGS: Number of Gestational Sacs: 1 Gestational Sac Shape: Normal Number of Fetuses: 1 Heart Rate: Not detected at this time. Survey of Visible Anatomic Structures: Grossly unremarkable for gestational age. Yolk Sac: Present and unremarkable. Placenta: Presently not well-visualized Amniotic Fluid Volume: Subjectively normal for gestational age. Uterine Abnormalities: Maternal uterus is unremarkable. Ovaries / Adnexa: Both maternal ovaries are visualized and unremarkable. DIMENSIONS: Parameter Measurement / EGA [place] Length: 2 mm/6 weeks 0 days Gestational Sac: 1.3 cm/6 weeks 0 days Yolk Sac: 4 mm/ ESTIMATED GESTATIONAL AGE: By Ultrasound: 6 weeks 0 days By LMP: Unknown ESTIMATED DATE OF DELIVERY: By Ultrasound: April 19, 2025 US/Transvaginal w/Preg US IMPRESSION: Intrauterine gestation with a mean gestational age of 6 weeks and 0 days. No cardiac activity noted at this time. Follow-up recommended. Reading Location: [id number]
== END | disposition home or self-care (01) ==
LOC: US 16:00
PROVIDERS: Referring Provider Obstetrics & Gynecology; Visit Provider Obstetrics & Gynecology
DX: N91.2 Amenorrhea, unspecified (principal); Z78.9 Other specified health status
CPT/HCPCS: 76817

== ENCOUNTER → 2024-09-08 | Outpatient (CLI) | payer BC, SELFPAY ==
[2024-09-08 12:21] LABS: Absolute Lymphocyte Count 1.87 X10^3/uL (0.83-4.51); Absolute Neutrophil Count 6.5 X10^3/uL (2.0-7.7); Basophil# 0.04 X10^3/uL; Basophil% 0.4 % (0-1); Eosinophil# 0.08 X10^3/uL; Eosinophils% 0.9 % (0-5); Hematocrit 38.1 % (37-47); Hemoglobin 12.5 g/dL (12.0-15.0); Lymphocyte # 1.87 X10^3/ul (0.83-4.51); Lymphocyte % 20.8 % (19-41); Mean Corp Hgb Conc 32.8 g/dL (32-36); Mean Corpuscular Hgb 27.3 pg (27.0-32.0); Mean Corpuscular Volume 83.2 fL (81-99); Mean Platelet Vol. 10.6 fl (6.2-12.0); Monocyte# 0.47 X10^3/uL; Monocyte% 5.2 % (0-10); NRBC Flagged by Analyzer 0 % (0-5); Neutrophil # 6.52 X10^3/uL (2.7-7.7); Neutrophil % 72.4 % (47-70); Platelet Count 359 K/mm3 (150-450); RBC Distribution Width CV 13.4 % (11.6-14.6); RBC Distribution Width SD 40.7 fl (35.1-43.9); Red Blood Count 4.58 M/mm3 (4.2-5.4)
[2024-09-08 12:48] LABS: Hemoglobin A1c 5.2 % (<=5.6)
[2024-09-08 13:10] LABS: Rubella IgG REAC (Nonreactive); Syphilis Antibodies Nonreactive (Nonreactive)
[2024-09-08 13:14] LABS: HIV Nonreactive (Nonreactive)
[2024-09-11 20:08] LABS: Chlamydia By Nucleic Acid AMP Negative (Negative); Gonococcus By Nucleic Acid AMP Negative (Negative)
== END | disposition home or self-care (01) ==
PROVIDERS: Obstetrics & Gynecology; Referring Provider Advanced Practice Midwife; Visit Provider Advanced Practice Midwife
DX: O26.899 Other specified pregnancy related conditions, unspecified trimester (principal); O99.210 Obesity complicating pregnancy, unspecified trimester; Z3A.00 Weeks of gestation of pregnancy not specified
CPT/HCPCS: 36415; 83036; 85025; 86703; 86762; 86780; 86850; 86900; 86901; 87086; 87491; 87591

== ENCOUNTER → 2024-12-01 | Outpatient (CLI) | payer BC, SELFPAY ==
--- NOTE | 2024-12-01 15:18 | US_ITS ---
PROCEDURE: OB ANATOMY W/ TRANSVAGINAL 12/01/2024 REASON FOR EXAM: ANATOMY TECHNIQUE: High resolution obstetric ultrasound performed using a 2D transducer. Standard views obtained, including biometry, anatomy survey, and Doppler studies. FINDINGS Limited scan due to excessive movement. Number: 1 Position: Cephalic Placental Position: Posterior. Grade 0 Placental Abnormalities: No placenta previa DIMENSIONS: Biparietal Diameter: 4.8 cm / 20w3d Head Circumference: 18.1 cm / 20w3d Abdominal Circumference: 17 cm / 22w0d Femur Length: 3.5 cm / 21w0d ESTIMATED WEIGHT: 424 gm +/- 64 gm ESTIMATED WEIGHT PERCENTILE (24+ weeks): 96 % ESTIMATED GESTATIONAL AGE: Baseline: 20w1d By Ultrasound: 20w5d ESTIMATED DATE OF DELIVERY: Baseline: 04/19/2025 By Ultrasound: 04/15/2025 BIOPHYSICAL ASSESSMENT: Amniotic Fluid : Normal Cardiac Motion: 153 (average) Trunk and Limb Motion: Present. MATERNAL ANATOMY: Adnexa: Neither maternal ovary is successfully identified. Cervical Length : 4.4 ANATOMY: Spine: Visualized Cranium: Visualized Cerebellum: Visualized Cisterna Magna: Visualized Cavum Septum Pellucidi: Visualized Lateral Ventricles: Visualized Choroid Plexus: Visualized Midline Falx: Visualized Nuchal Fold: Visualized Upper Lip: Visualized Heart: 4CH is not seen Ventricular Outflow Tracts: Visualized Stomach: Visualized Kidneys: Visualized Bladder: Visualized Umbilical Cord: 3 VC is not seen. Extremities: Visualized US/OB Anatomy w/ Transvaginal IMPRESSION: Single viable intrauterine fetus in cephalic presentation. Limited 4CH cardiac views and 3VC, otherwise unremarkable anatomy. LMP GA 20w1d Ultrasound GA 20w5d Reading [facility] [id number]
== END | disposition home or self-care (01) ==
LOC: US 15:18
PROVIDERS: Referring Provider Advanced Practice Midwife; Visit Provider Advanced Practice Midwife
DX: O09.91 Supervision of high risk pregnancy, unspecified, first trimester (principal); Z3A.00 Weeks of gestation of pregnancy not specified
CPT/HCPCS: 76805; 76817

== ENCOUNTER → 2024-12-14 | Outpatient (CLI) | payer BC, SELFPAY ==
--- NOTE | 2024-12-14 15:21 | US_ITS ---
PROCEDURE: OB LIMITED (NO BIOMETRICS) 12/14/2024 REASON FOR EXAM: FOCUS ON HEART, CORD, AND GENDER. TECHNIQUE: High resolution obstetric ultrasound performed using a 2D transducer. Standard views obtained, including biometry, anatomy survey, and Doppler studies. FINDINGS Number: 1 Position: Transverse right Placental Position: Anterior and not low-lying Placental Abnormalities: No evidence of previa. ESTIMATED GESTATIONAL AGE: Baseline: 22 weeks and 0 days By Ultrasound: ESTIMATED DATE OF DELIVERY: Baseline: April 19, 2025 BIOPHYSICAL ASSESSMENT: Amniotic Fluid Volume: 5.3 cm Cardiac Motion: 140 beats per minute (average) Trunk and Limb Motion: Present. Four-chamber heart view was visualized. It is unremarkable. Three-vessel umbilical cord. Gender: Male US/OB Limited (No Biometrics) IMPRESSION: The heart, are unremarkable. Reading Location: [id number]
== END | disposition home or self-care (01) ==
LOC: US 15:20
PROVIDERS: Referring Provider Advanced Practice Midwife; Visit Provider Advanced Practice Midwife
DX: O09.90 Supervision of high risk pregnancy, unspecified, unspecified trimester (principal); Z3A.00 Weeks of gestation of pregnancy not specified
CPT/HCPCS: 76815

== ENCOUNTER → 2025-01-25 | Outpatient (CLI) | payer BC, SELFPAY ==
[2025-01-25 12:38] LABS: Hematocrit 34.9 % (37-47); Hemoglobin 11.3 g/dL (12.0-15.0); Immature Granulocytes Count 0.070 X10^3/uL (0.0-0.0); Mean Corp Hgb Conc 32.4 g/dL (32-36); Mean Corpuscular Volume 84.7 fL (81-99); Mean Platelet Vol. 10.8 fl (6.2-12.0); NRBC Flagged by Analyzer 0 % (0-5); Platelet Count 262 K/mm3 (150-450); RBC Distribution Width CV 13.7 % (11.6-14.6); RBC Distribution Width SD 42.4 fl (35.1-43.9); Red Blood Count 4.12 M/mm3 (4.2-5.4); White Blood Count 9.5 K/mm3 (4.4-11.0)
[2025-01-25 13:19] LABS: Glucose Challenge Gest 1H 50g 109 mg/dL (70-140); HIV Nonreactive (Nonreactive); Syphilis Antibodies Nonreactive (Nonreactive)
--- OUTSIDE RECORDS SUMMARY | 2025-01-25 21:46 | XMS RPT_ITS | CCD ---
Author Organization [facility] Care Team Providers Care Sewage Plant Operator Name Role Phone Ambrocio Greer Unavailable Unavailable Ambrocio Greer Unavailable Unavailable FurnessJermaine Unavailable Unavailable Furness, Dr. Dean Primary Care Provider Dr. Jermaine Rodrigues Referring Provider Dr. Adriana Hadley Attending Provider [phone] Care Physician, No Primary Primary Care Provider Unavailable Furncarolina, Dr. Dean Primary Care Provider [phone] Dr. Jermaine Rodrigues Referring Provider [phone] Adriana Hadley Attending Provider [phone] Care Physician, No Primary Primary Care Provider Unavailable Care Physician, No Primary Referring Provider Un available Care Physician, No Primary Primary Care Provider Unavailable Care Physician, No Primary Referring Provider Un available Nicole Valladares Attending Provider Lesley Obregon CNM Attending Provider [phone] Lesley Obregon CNM Referring Provider Nicole Valladares Referring Provider Dr. Cony Pride MD Attending Provider Dr. Cony Pride MD Referring Provider Dr. Adriana Hadley DO Attending Provider Dr. Adriana Hadley DO Referring Provider Care Physician, No Primary Primary Care Provider Unavailable Care Physician, No Primary Referring Provider Un available Lesley Obregon CNM Attending Provider [phone] Lesley Obregon CNM Referring Provider [phone] Cony Pride MD Attending Provider Care Physician, No Primary Primary Care Provider Unavailable Juaquin Joyce DO, Dr. Wright Attending Provider Juaquin Joyce DO, Dr. Wright Referring Provider Care Physician, No Primary Primary Care Provider Unavailable Juaquin Joyce DO, Dr. Wright Attending Provider Adriana Hadley Attending Unavailabl e Care Physician, No Primary Primary Care Unava ilable Care Physician, No Primary Referring Unava ilable Care Physician, No Primary Primary Care Unava ilable Cony Pride Referring Unavailable Cony Pride Attending Unavailable Adriana Hadley Attending Unavailabl e Vande VelAdriana moya Referring Unavailabl e Care Physician, No Primary Primary Care Unava ilable Care Physician, No Primary Primary Care Unava ilable Evangelina COURSE DEVELOPER, Nicole Attending Unavailable Care Physician, No Primary Referring Unava ilable Care Physician, No Primary Primary Care Unava ilable Lesley Obregon Attending Unavailable Care Physician, No Primary Referring Unava ilable Care Physician, No Primary Primary Care Unava ilable Lesley Obregon Attending Unavailable Care Physician, No Primary Referring Unava ilable Care Physician, No Primary Primary Care Unava ilable Lesley Obregon Referring Unavailable Lesley Obregon Attending Unavailable Kayline Adriana Joyce Referring Unavailabl e Vande Velgriffin, Adriana Attending Unavailabl e Care Physician, No Primary Primary Care Unava ilable Adriana Hadley Attending Unavailabl e Vande VeldeAdriana Referring Unavailabl e Care Physician, No Primary Primary Care Unava ilable Adriana Hadley Attending Unavailabl e Vande VeldeAdriana Referring Unavailabl e Care Physician, No Primary Primary Care Unava ilable Care Physician, No Primary Primary Care Unava ilable Hensel COURSE DEVELOPER, Nicole Referring Unavailable Evangelina COURSE DEVELOPER, Nicole Attending Unavailable Care Physician, No Primary Primary Care Unava ilable Lesley Obregon Referring Unavailable Lesley Obregon Attending Unavailable Evangelina COURSE DEVELOPER, Nicole Attending Unavailable Care Physician, No Primary Primary Care Unava ilable Care Physician, No Primary Primary Care Unava ilable Lesley Obregon Referring Unavailable Lesley Obregon Attending Unavailable Care Physician, No Primary Primary Care Unava ilable Lesley Obregon Referring Unavailable Lesley Obregon Attending Unavailable Care Physician, No Primary Referring Unava ilable Care Physician, No Primary Primary Care Unava ilable Lesley Obregon Attending Unavailable Care Physician, No Primary Referring Unava ilable Care Physician, No Primary Primary Care Unava ilable Lesley Obregon Attending Unavailable Care Physician, No Primary Referring Unava ilable Care Physician, No Primary Primary Care Unava ilable Cony Pride Attending Unavailable Adriana Hadley Attending [facility] Care Physician, No Primary Primary Care Unava ilable Care Physician, No Primary Referring Unava ilable Allergies Allergy Classification Reported Allergen(s) Allergy Type Date of Onset Reaction(s) Facility (1 source) No Known Allergies; Translations: [No Known Allergies] Propensity to adverse reactions to drug (disorder) [facility] Repository (1 source) No Known Medication Allergies; Translations: [No Known Medication Allergies] Propensity to adverse reactions to drug (disorder) [facility] Repository Medications Current Medications Medication Drug Class(es) Dates Sig (Normalized) Sig (Original) Iron (5 sources) Start: 08-31-2024 [id number]-Hq -O3-Dha- Epa-Fish (Natavi Pnv) 13.5 mg iron- 0.5 mg-150 mg capsule Active NMA PO August 31, 2024 1:00am Completed/Discontinued Medications Medication Drug Class(es) Dates Sig (Normalized) Sig (Original) calcium ascorbate 500 mg oral tablet (8 sources) Start: 06-25-2021 End: 07-30-2022 take 1 tablet by mouth once daily Ascorbate Calcium (Vitamin C) 500 mg tablet Discontinued 500 mg PO DAILY June 25, 2021 1:00am July 30, 2022 2:14pm Desogestrel-Ethiny l Estradiol (20 sources) Progestin, Estrogen Start: 06-25-2021 End: 07-30-2022 take 0.15 tablet by mouth once daily Desogestrel-Ethinyl Estradiol (Apri) 0.15-0.03 mg tablet Discontinued 1 {tbl} PO daily 84 4 June 25, 2021 4:26pm July 30, 2022 2:14pm Start: 06-25-2021 End: 07-30-2022 take 0.15 tablet by mouth once daily Desogestrel-Ethinyl Estradiol (Apri) 0.15-0.03 mg tablet Discontinued 1 {tbl} PO daily 84 June 25, 2021 4:26pm July 30, 2022 2:14pm Start: 06-25-2021 End: 07-30-2022 Desogestrel-Ethinyl Estradio l (Apri) 0.15-0.03 mg tablet Discontinued 1 TABLET PO daily June 25, 2021 4:26pm July 30, 2022 2:14pm Start: 06-25-2021 End: 07-30-2022 Desogestrel-Ethinyl Estradio l (Apri) 0.15-0.03 mg tablet Discontinued 1 TABLET PO daily June 25, 2021 3:26pm July 30, 2022 1:14pm Start: 06-18-2021 End: 06-25-2021 take 0.15 tablet by mouth once daily Desogestrel-Ethinyl Estradiol (Apri) 0.15-0.03 mg tablet Discontinued 1 {tbl} PO daily June 18, 2021 4:47pm June 25, 2021 4:26pm Start: 06-18-2021 End: 06-25-2021 take 0.15 tablet by mouth once daily Desogestrel-Ethinyl Estradiol (Apri) 0.15-0.03 mg tablet Discontinued 1 {tbl} PO daily June 18, 2021 4:47pm June 25, 2021 4:26pm Start: 06-18-2021 End: 06-25-2021 Desogestrel-Ethinyl Estradio l (Apri) 0.15-0.03 mg tablet Discontinued 1 TABLET PO daily June 18, 2021 4:47pm June 25, 2021 4:26pm Start: 06-18-2021 End: 06-25-2021 Desogestrel-Ethinyl Estradio l (Apri) 0.15-0.03 mg tablet Discontinued 1 TABLET PO daily June 18, 2021 3:47pm June 25, 2021 3:26pm Start: 03-25-2021 End: 06-18-2021 take 0.15 tablet by mouth once daily Desogestrel-Ethinyl Estradiol (Apri) 0.15-0.03 mg tablet Discontinued 1 {tbl} PO daily 84 1 March 25, 2021 1:17pm June 18, 2021 4:47pm Start: 03-25-2021 End: 06-18-2021 take 0.15 tablet by mouth once daily Desogestrel-Ethinyl Estradiol (Apri) 0.15-0.03 mg tablet Discontinued 1 {tbl} PO daily 84 March 25, 2021 1:17pm June 18, 2021 4:47pm Start: 03-25-2021 End: 06-18-2021 Desogestrel-Ethinyl Estradio l (Apri) 0.15-0.03 mg tablet Discontinued 1 TABLET PO daily March 25, 2021 1:17pm June 18, 2021 4:47pm Start: 03-25-2021 End: 06-18-2021 Desogestrel-Ethinyl Estradio l (Apri) 0.15-0.03 mg tablet Discontinued 1 TABLET PO daily March 25, 2021 12:17pm June 18, 2021 3:47pm Start: 02-15-2020 End: 03-25-2021 take 0.15 tablet by mouth once daily Desogestrel-Ethinyl Estradiol (Apri) 0.15-0.03 mg tablet Discontinued 1 {tbl} PO daily February 15, 2020 12:00am March 25, 2021 1:17pm Start: 02-15-2020 End: 03-25-2021 take 0.15 tablet by mouth once daily Desogestrel-Ethinyl Estradiol (Apri) 0.15-0.03 mg tablet Discontinued 1 {tbl} PO daily February 15, 2020 12:00am March 25, 2021 1:17pm Start: 02-15-2020 End: 03-25-2021 Desogestrel-Ethinyl Estradio l (Apri) 0.15-0.03 mg tablet Discontinued 1 TABLET PO daily February 15, 2020 12:00am March 25, 2021 1:17pm Start: 02-15-2020 End: 03-25-2021 Desogestrel-Ethinyl Estradio l (Apri) 0.15-0.03 mg tablet Discontinued 1 TABLET PO daily February 14, 2020 11:00pm March 25, 2021 12:17pm Norethindrone-Ethin Estradiol (20 sources) Estrogen Start: 02-15-2020 End: 02-15-2020 Norethindrone-Ethin Estradiol (Pirmella) 1-35 mg-mcg tablet Discontinued 1 {tbl} PO daily 84 4 February 15, 2020 11:23am February 15, 2020 12:06pm Start: 02-15-2020 End: 02-15-2020 Norethindrone-Ethin Estradio l (Pirmella) 1-35 mg-mcg tablet Discontinued 1 {tbl} PO daily 84 February 15, 2020 11:23am February 15, 2020 12:06pm Start: 02-15-2020 End: 02-15-2020 take 1 tablet by mouth once daily Norethindrone-Ethin Estradiol (Pirmella) 1-35 mg-mcg tablet Discontinued 1 TABLET PO daily 84 February 15, 2020 11:23am February 15, 2020 12:06pm Start: 02-15-2020 End: 02-15-2020 take 1 tablet by mouth once daily Norethindrone-Ethin Estradiol (Pirmella) 1-35 mg-mcg tablet Discontinued 1 TABLET PO daily 84 February 15, 2020 10:23am February 15, 2020 11:06am Start: 02-05-2020 End: 02-15-2020 Norethindrone-Ethin Estradio l (Pirmella) 1-35 mg-mcg tablet Discontinued 1 {tbl} PO daily 84 4 February 05, 2020 9:22am February 15, 2020 11:24am Start: 12-27-2018 End: 02-05-2020 Norethindrone-Ethin Estradio l (Pirmella) 1-35 mg-mcg tablet Discontinued 1 {tbl} PO daily 84 December 27, 2018 11:48am February 05, 2020 9:23am Start: 12-27-2018 End: 02-05-2020 Norethindrone-Ethin Estradio l (Pirmella) 1-35 mg-mcg tablet Discontinued 1 {tbl} PO daily 84 December 27, 2018 11:48am February 05, 2020 9:23am Start: 12-27-2018 End: 02-05-2020 take 1 tablet by mouth once daily Norethindrone-Ethin Estradiol (Pirmella) 1-35 mg-mcg tablet Discontinued 1 TABLET PO daily 84 December 27, 2018 11:48am February 05, 2020 9:23am Start: 12-27-2018 End: 02-05-2020 take 1 tablet by mouth once daily Norethindrone-Ethin Estradiol (Pirmella) 1-35 mg-mcg tablet Discontinued 1 TABLET PO daily 84 December 27, 2018 10:48am February 05, 2020 8:23am Start: 12-05-2018 End: 12-27-2018 Norethindrone-Ethin Estradio l (Pirmella) 1-35 mg-mcg tablet Discontinued 1 {tbl} PO daily 84 0 December 05, 2018 10:28am December 27, 2018 11:48am Start: 12-05-2018 End: 12-27-2018 Norethindrone-Ethin Estradio l (Pirmella) 1-35 mg-mcg tablet Discontinued 1 {tbl} PO daily December 05, 2018 10:28am December 27, 2018 11:48am Start: 12-05-2018 End: 12-27-2018 take 1 tablet by mouth once daily Norethindrone-Ethin Estradiol (Pirmella) 1-35 mg-mcg tablet Discontinued 1 TABLET PO daily December 05, 2018 10:28am December 27, 2018 11:48am Start: 12-05-2018 End: 12-27-2018 take 1 tablet by mouth once daily Norethindrone-Ethin Estradiol (Pirmella) 1-35 mg-mcg tablet Discontinued 1 TABLET PO daily December 05, 2018 9:28am December 27, 2018 10:48am Start: 11-09-2017 End: 12-05-2018 Norethindrone-Ethin Estradio l (Pirmella) 1-35 mg-mcg tablet Discontinued 1 {tbl} PO daily 84 November 09, 2017 9:53am December 05, 2018 10:28am Start: 11-09-2017 End: 12-05-2018 take 1 tablet by mouth once daily Norethindrone-Ethin Estradiol (Pirmella) 1-35 mg-mcg tablet Discontinued 1 TABLET PO daily 84 November 09, 2017 9:53am December 05, 2018 10:28am Start: 11-09-2017 End: 12-05-2018 take 1 tablet by mouth once daily Norethindrone-Ethin Estradiol (Pirmella) 1-35 mg-mcg tablet Discontinued 1 TABLET PO daily 84 November 09, 2017 8:53am December 05, 2018 9:28am Start: 11-09-2017 End: 12-05-2018 Norethindrone-Ethin Estradio l (Pirmella) 1-35 mg-mcg tablet Discontinued 1 {tbl} PO daily 84 4 November 09, 2017 9:53am December 05, 2018 10:28am Multivitamin preparation (3 sources) Start: 11-09-2017 End: 07-30-2022 take 1 tablet by mouth once daily Multivitamin Discontinued 1 TABLET PO daily November 09, 2017 12:00am July 30, 2022 2:14pm Start: 11-09-2017 End: 07-30-2022 take 1 tablet by mouth once daily Multivitamin Discontinued 1 TABLET PO daily November 08, 2017 11:00pm July 30, 2022 1:14pm Multivitamin tablet (5 sources) Start: 11-09-2017 End: 07-30-2022 Multivitamin tablet Discontinued 1 {tbl} PO daily November 09, 2017 12:00am July 30, 2022 2:14pm Mv-Mins 12-Hsel-Lsyup No.1-D kaur (Pnv-Sophia) 28-1-300 mg capsule (8 sources) Start: 07-30-2022 End: 08-31-2024 Mv-Mins 91-Ktqx-Bvbzl No.1-D kaur (Pnv-Sophia) 28-1-300 mg capsule Discontinued 1 NMA PO July 30, 2022 1:00am August 31, 2024 11:13am Start: 07-30-2022 End: 08-31-2024 Mv-Mins 60-Chfg-Oqulg No.1-D kaur (Pnv-Sophia) 28-1-300 mg capsule Discontinued 1 NMA PO July 30, 2022 1:00am August 31, 2024 11:13am Start: 07-30-2022 take 1 capsule by mouth once M v-Mins 04-Nhwc-Iwvrl No.1-Dha (Pnv-Sophia) 28-1-300 mg capsule Active CAP PO July 30, 2022 1:00am Start: 07-30-2022 take 1 capsule by mouth once M v-Mins 60-Xlcg-Sftnx No.1-Dha (Pnv-Sophia) 28-1-300 mg capsule Active CAP PO July 30, 2022 12:00am Problems Active Problems Problem Classification Problem Date Documented Date Episodic/Chronic Menstrual disorders (1 source) Amenorrhea, unspecified; Translations: [Amenorrhea, unspecified] Onset: 09-07-2024 Chronic Other complications of (20 sources) Maternal obesity complicating , childbirth and the puerperium, antepartum; Translations: [Obesity complicating , unspecified trimester] 08-05-2022 Chronic Comment on above: HgbA1c ordered with NOB. Encouraged healthy weight gain Other complications of (7 sources) Obesity complicating , unspecified trimester; Translations: [Obesity complicating , childbirth, or the puerperium, unspecified as to episode of care or not applicable] Onset: 12-01-2024 08-05-2022 Chronic Other complications of (20 sources) High risk ; Translations: [Supervision of high risk , unspecified, unspecified trimester] 07-30-2022 Episodic Comment on above: , SANTOSH 04/19/25 P C Paxton [place] PRR , SANTOSH 3 girl Paxton [place] Other complications of (7 sources) Supervision of high risk , unspecified, unspecified trimester; Translations: [Supervision of unspecified high-risk ] Onset: 12-20-2024 08-05-2022 Episodic Other complications of (20 sources) RhD negative; Translations: [Other specified related conditions, unspecified trimester] 09-04-2022 Episodic Comment on above: Rhogam given 4 due to bleeding in prior /miscarriage Other complications of (2 sources) Other specified related conditions, unspecified trimester; Translations: [Other specified complications of , antepartum condition or complication] Onset: 12-01-2024 10-01-2022 Episodic Other complications of (1 source) Supervision of high risk , unspecified, first trimester; Translations: [Supervision of high risk , unspecified, first trimester] Onset: 12-29-2024 Episodic Other nutritional; endocrine; and metabolic disorders (20 sources) Body mass index 30+ - obesity; Translations: [Obesity, unspecified] 08-31-2024 Chronic Other nutritional; endocrine; and metabolic disorders (1 source) Obesity, unspecified; Translations: [Obesity, unspecified] Onset: 12-01-2024 Chronic Other upper respiratory disease (8 sources) Seasonal allergy; Translations: [Other seasonal allergic rhinitis] 07-30-2022 Chronic Other upper respiratory disease (3 sources) Other seasonal allergic rhinitis; Translations: [Allergic rhinitis, cause unspecified] 08-05-2022 Chronic Residual codes; unclassified (10 sources) Finding of menstrual bleeding; Translations: [Other specified health status] 09-08-2024 Episodic Residual codes; unclassified (1 source) Unspecified blood type, Rh negative; Translations: [Unspecified blood type, Rh negative] Onset: 12-01-2024 Episodic Residual codes; unclassified (1 source) 20 weeks gestation of ; Translations: [20 weeks gestation of ] Onset: 12-01-2024 Episodic Residual codes; unclassified (1 source) 16 weeks gestation of ; Translations: [16 weeks gestation of ] Onset: 11-03-2024 Episodic Past or Other Problems Problem Classification Problem Date Documented Da te Episodic/Chronic Hemorrhage during ; abruptio placenta; placenta previa (7 sources) Antepartum hemorrhage; Translations: [Hemorrhage in early , unspecified] Onset: 07-31-2024 08-30-2024 Episodic Comment on above: rhogam given Other complications of (1 source) with inconclusive viability, not applicable or unspecified; Translations: [ with inconclusive viability, not applicable or unspecified] Onset: 07-24-2024 Episodic Other and delivery including normal (20 sources) ; Translations: [Encounter for supervision of normal , unspecified, unspecified trimester] Onset: 09-08-2024 07-30-2022 Episodic Comment on above: SM IAL 40 girl K alinna NIPT w gender/gato r- declines NEEDS HEP B/C STILL! ! NIPT w gender/carrier- declines Other screening for suspected conditions (not mental disorders or infectious disease) (1 source) Encounter for screening for malignant neoplasm of cervix; Translations: [Encounter for screening for malignant neoplasm of cervix] Onset: 05-18-2024 Episodic Residual codes; unclassified (1 source) 8 weeks gestation of ; Translations: [8 weeks gestation of ] Onset: 09-08-2024 Episodic Residual codes; unclassified (1 source) Other specified health status; Translations: [Other specified health status] Onset: 09-08-2024 Episodic Results Test Name Value Interpretation Reference Range Facility Geometry Professor Office Visit Reporton 12-29-2024 Geometry Professor Office Visit Report [facility] [address], [address] [place] [address] OFFICE VISIT Date of Service: 12/29/24 MR#: [id number] Acct: [id number] Name: GIN OLEA Rep #: [id number] : 1995 Provider: Dr. Adriana Willis DO Age/Sex: 29/F [place] [facility] [place]: [place] Intake Vital Signs 10/06/24 15:50 12/01/24 14:19 12/29/24 10:18 12/29/24 10:18 Height 5 ft 5 in 5 ft 5 in 5 ft 5 in 5 ft 5 in Weight: 241 lb 4 oz BMI 40.1 BP 102/68 Intake Visit Reasons: 24 wk ob Fire Dispatcher Required: No Is patient in pain?: No Allergies No Known Allergies Allergy (Verified 12/29/24 10:18) Medications ???Medication ???Instructions ???Recorded ???Confirmed ???Type PNV 158-iron 13.5 mg-folic 0.5 cap PO 08/31/24 12/29/24 History mg-omega 3-dha 150 mg-epa-fish capsule (Natavi PNV) Last Menstrual Period: 04/06/24 Zika: Zika virus screening: Negative : No PFSH PFSH Medical History Date of last menstrual period (LMP) unknown Supervision of high risk in first trimester Hx: UTI (urinary tract infection) Family History Father Hypertension Grandfather Hypertension Social History adopted: No household members: spouse and children housing: house number of children: 1 current occupational status: employed 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 current occupational exposures/hazards: No pets and animals: Yes (Not managing litterbox ) pets and animals: cat(s) and dog(s) history of recent travel: No sexually active: Yes Smoking Status: Never smoker alcohol intake: current details: occasionally- not while substance use type: does not use well-balanced diet: daily or most days caffeine: Yes (occasionally) Type: coffee Number of servings: 1 eating out: 1-3 times/week during the past year weight has: remained stable what type of physical activity do you participate in: walking, yoga and weight training frequency: 1-2 times per week duration: 15-30 minutes/day fam/restorationist: Restorationism seatbelt use: always do you feel safe at home: Yes additional social history: - [place], was in [employer] 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 Date Name GA/Weeks Outcome Route Bth Weight Gen Labor Lgth Anesthesia Del Locatn Provider FOB 03/04/23 Otonielinna 40 live - full term 8lbs 9oz Female [facility] Ma rcanthony Delivery Date: 03/04/23 Last Updated by: Carisa Kevin IOL HPI 24 wk ob Details: GIN OLEA is a 29 year old who presents for routine OB visit. OB Visit SANTOSH Calculator Estimated Delivery Date Method Current WG Current Estimate 04/19/25 Ultrasound #1 24w 1d Other Estimates 04/20/25 Ultrasound #2 24w 0d Expected Delivery Route/Plan Labor Preferences- CB/BF classes: [] labor support person: [] labor intervention preferences: [] pain management options preferred: [] cut cord/dad catch: [] : [] PP control planned: [] discussed possible routes of delivery and associated risks: [] special requests: [] Specific Issue/Plans Covid status: [] Flu vaccine: [] Tdap vaccine: [] Rhogam: [] LARC form signed: [] Problem list reviewed and updated with the most current plan of care details and appropriate orders placed. Relevant counseling for the gestational age provided. Continue routine care and follow up unless otherwise noted in visit notes/problem list details Initial Weight: Not Recorded Date -???-???-???-???-??? -???-???-???-???-??? -???-???- EGA Weight BP Urine Prot -???-???-???-???-??? -???-???-???-???-??? -???-???- Glucose FHR FuHt Pres Dilation -???-???-???-???-??? -???-???-???-???-??? -???-???- Effaced St Visit Note 09/08/24 -???-???-???-???-??? -???-???-???-???-??? -???-???- 8w 1d 236 lb 4 oz 116/80 -???-???-???-???-??? -???-???-???-???-??? -???-???- 165 -???-???-???-???-??? -???-???-???-???-??? -???-???- KW- CRL cons with early US. declines NIPT. 10/06/24 -???-???-???-???-??? -???-???-???-???-??? -???-???- 12w 1d 234 lb 115/75 Negative -???-???-???-???-??? -???-???-???-???-??? -???-???- Negative 172 -???-???-???-???-??? -???-???-???-???-??? -???-???- KW-work in [facility] or JV. no vb/cramping. anatomy US ordered through hospital per her request. 11/03/24 -???-???-???-???-??? -???-???-???-???-??? -???-???- 16w 1d 233 lb 6 oz 109/68 Negative -???-???-???-???-??? (more content not included)... Normal [facility] OB Limited (No Biometrics)on 12-14-2024 OB Limited (No Biometrics) [facility] [address] [place], [place] [id number] OB Limited (No Biometrics) MR#: [id number] Acct: [id number] Name: GIN OLEA Rep #: [id number] : 1995 F 29 From: Alireza cameron MD PCP: Care Physician,No Primary Status: REG CLI Study: OB Limited (No Biometrics) Date of Exam: 12/14 Exam# [id number] Ordering Dr: Lesley Obregon CNM PROCEDURE: OB LIMITED (NO BIOMETRICS) 12/14/2024 REASON FOR EXAM: FOCUS ON HEART, CORD, AND GENDER. TECHNIQUE: High resolution obstetric ultrasound performed using a 2D transducer. Standard views obtained, including biometry, anatomy survey, and Doppler studies. FINDINGS Number: 1 Position: Transverse right Placental Position: Anterior and not low-lying Placental Abnormalities: No evidence of previa. ESTIMATED GESTATIONAL AGE: Baseline: 22 weeks and 0 days By Ultrasound: ESTIMATED DATE OF DELIVERY: Baseline: April 19, 2025 BIOPHYSICAL ASSESSMENT: Amniotic Fluid Volume: 5.3 cm Cardiac Motion: 140 beats per minute (average) Trunk and Limb Motion: Present. Four-chamber heart view was visualized. It is unremarkable. Three-vessel umbilical cord. Gender: Male US/OB Limited (No Biometrics) IMPRESSION: The heart, are unremarkable. Reading Location: [id number] CC: SANDY Obregon; No Primary Care Physician Slab Depiler Operator: Signed Normal [facility] - Chemistry and C hemistry - challengeOrdered By: Cony Penaambrocio on 12-01-2024 Glucose Ql (U) Negative [facility] - UrinalysisOrder ed By: Cony Bigg on 12-01-2024 Protein Ql (U) Negative [facility] OB Anatomy w/ Transvaginalon 12-01-2024 OB Anatomy w/ Transvaginal [facility] [address] [place] [address] OB Anatomy w/ Transvaginal MR#: [id number] Acct: [id number] Name: GIN OLEA Rep #: [id number] : 1995 F 29 From: Aleyda regalado MD PCP: Care Physician,No Primary Status: REG CLI Study: OB Anatomy w/ Transvaginal Date of Exam: 12/01 Exam# [id number] Ordering Dr: Lesley Obregon CNM PROCEDURE: OB ANATOMY W/ TRANSVAGINAL 12/01/2024 REASON FOR EXAM: ANATOMY TECHNIQUE: High resolution obstetric ultrasound performed using a 2D transducer. Standard views obtained, including biometry, anatomy survey, and Doppler studies. FINDINGS Limited scan due to excessive movement. Number: 1 Position: Cephalic Placental Position: Posterior. Grade 0 Placental Abnormalities: No placenta previa DIMENSIONS: Biparietal Diameter: 4.8 cm / 20w3d Head Circumference: 18.1 cm / 20w3d Abdominal Circumference: 17 cm / 22w0d Femur Length: 3.5 cm / 21w0d ESTIMATED WEIGHT: 424 gm +/- 64 gm ESTIMATED WEIGHT PERCENTILE (24+ weeks): 96 % ESTIMATED GESTATIONAL AGE: Baseline: 20w1d By Ultrasound: 20w5d ESTIMATED DATE OF DELIVERY: Baseline: 04/19/2025 By Ultrasound: 04/15/2025 BIOPHYSICAL ASSESSMENT: Amniotic Fluid : Normal Cardiac Motion: 153 (average) Trunk and Limb Motion: Present. MATERNAL ANATOMY: Adnexa: Neither maternal ovary is successfully identified. Cervical Length : 4.4 ANATOMY: Spine: Visualized Cranium: Visualized Cerebellum: Visualized Cisterna Magna: Visualized Cavum Septum Pellucidi: Visualized Lateral Ventricles: Visualized Choroid Plexus: Visualized Midline Falx: Visualized Nuchal Fold: Visualized Upper Lip: Visualized Heart: 4CH is not seen Ventricular Outflow Tracts: Visualized Stomach: Visualized Kidneys: Visualized Bladder: Visualized Umbilical Cord: 3 VC is not seen. Extremities: Visualized US/OB Anatomy w/ Transvaginal IMPRESSION: Single viable intrauterine fetus in cephalic presentation. Limited 4CH cardiac views and 3VC, otherwise unremarkable anatomy. LMP GA 20w1d Ultrasound GA 20w5d [facility]: SANDY Obregon; No Primary Care Physician Slab Depiler Operator: Signed Normal [facility] Geometry Professor Office Visit Reporton 12-01-2024 Geometry Professor Office Visit Report [facility]'s [address], [address] [place] [address] OFFICE VISIT Date of Service: 12/01/24 MR#: [id number] Acct: [id number] Name: GIN OLEA Rep #: [id number] : 1995 Provider: Dr. Cony onofre MD Age/Sex: 29/F [place] [facility] [place]: Signed Intake Vital Signs 09/08/24 10:31 11/03/24 10:23 12/01/24 14:13 12/01/24 14:19 Height 5 ft 5 in 5 ft 5 in 5 ft 5 in 5 ft 5 in Weight: 237 lb 4 oz BMI 39.4 BP 117/65 Intake Visit Reasons: 20wk ob Fire Dispatcher Required: No Is patient in pain?: No Allergies No Known Allergies Allergy (Verified 12/01/24 14:14) Medications ???Medication ???Instructions ???Recorded ???Confirmed ???Type PNV 158-iron 13.5 mg-folic 0.5 cap PO 08/31/24 12/01/24 History mg-omega 3-dha 150 mg-epa-fish capsule (Natavi PNV) Last Menstrual Period: 04/06/24 Zika: Zika virus screening: Negative : No PFSH PFSH Medical History Date of last menstrual period (LMP) unknown Supervision of high risk in first trimester Hx: UTI (urinary tract infection) Family History Father Hypertension Grandfather Hypertension Social History adopted: No household members: spouse and children housing: house number of children: 1 current occupational status: employed 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 current occupational exposures/hazards: No pets and animals: Yes (Not managing litterbox ) pets and animals: cat(s) and dog(s) history of recent travel: No sexually active: Yes Smoking Status: Never smoker alcohol intake: current details: occasionally- not while substance use type: does not use well-balanced diet: daily or most days caffeine: Yes (occasionally) Type: coffee Number of servings: 1 eating out: 1-3 times/week during the past year weight has: remained stable what type of physical activity do you participate in: walking, yoga and weight training frequency: 1-2 times per week duration: 15-30 minutes/day fam/restorationist: Restorationism seatbelt use: always do you feel safe at home: Yes additional social history: - [place], was in [employer] 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 Date Name GA/Weeks Outcome Route Bth Weight Gen Labor Lgth Anesthesia Del Locatn Provider FOB 03/04/23 Paxton 40 live - full term 8lbs 9oz Female [facility] Gus rcanthony Delivery Date: 03/04/23 Last Updated by: Carisa Kevin IOL HPI 20wk ob Details: GIN OLEA is a 29 year old who presents for routine OB visit. OB Visit SANTOSH Calculator Estimated Delivery Date Method Current WG Current Estimate 04/19/25 Ultrasound #1 20w 1d Other Estimates 04/20/25 Ultrasound #2 20w 0d Expected Delivery Route/Plan Labor Preferences- CB/BF classes: [] labor support person: [] labor intervention preferences: [] pain management options preferred: [] cut cord/dad catch: [] : [] PP control planned: [] discussed possible routes of delivery and associated risks: [] special requests: [] Specific Issue/Plans Covid status: [] Flu vaccine: [] Tdap vaccine: [] Rhogam: [] LARC form signed: [] Problem list reviewed and updated with the most current plan of care details and appropriate orders placed. Relevant counseling for the gestational age provided. Continue routine care and follow up unless otherwise noted in visit notes/problem list details Initial Weight: Not Recorded Date -???-???-???-???-??? -???-???-???-???-??? -???-???- EGA Weight BP Urine Prot -???-???-???-???-??? -???-???-???-???-??? -???-???- Glucose FHR FuHt Pres Dilation -???-???-???-???-??? -???-???-???-???-??? -???-???- Effaced St Visit Note 09/08/24 -???-???-???-???-??? -???-???-???-???-??? -???-???- 8w 1d 236 lb 4 oz 116/80 -???-???-???-???-??? -???-???-???-???-??? -???-???- 165 -???-???-???-???-??? -???-???-???-???-??? -???-???- KW- CRL cons with early US. declines NIPT. 10/06/24 -???-???-???-???-??? -???-???-???-???-??? -???-???- 12w 1d 234 lb 115/75 Negative -???-???-???-???-??? -???-???-???-???-??? -???-???- Negative 172 -???-???-???-???-??? -???-???-???-???-??? -???-???- KW-work in f or JV. no vb/cramping. anatomy US ordered through hospital per her request. 11/03/24 -???-???-???-???-??? -???-???-???-???-??? -???-???- 16w 1d 233 lb 6 oz 109/68 Negative -???-???-???-???-??? -???-???-? (more content not included)... Normal [facility] - Chemistry and C hemistry - challengeOrdered By: Lesley Obregon on 11-03-2024 Glucose Ql (U) Negative [facility] - UrinalysisOrder ed By: Lesley Obregon on 11-03-2024 Protein Ql (U) Negative [facility] Geometry Professor Office Visit Reporton 11-03-2024 Geometry Professor Office Visit Report [facility] [address], [address] [place] [address] OFFICE VISIT Date of Service: 11/03/24 MR#: [id number] Acct: [id number] Name: GIN OLEA Rep #: [id number] : 1995 Provider: SANDY Galvan ams Age/Sex: 29/F Location: [facility] [place] Status: Signed Intake Vital Signs 09/08/24 10:31 10/06/24 15:50 11/03/24 10:23 Height 5 ft 5 in 5 ft 5 in 5 ft 5 in Weight: 233 lb 6 oz BMI 38.8 BP 109/68 Intake Visit Reasons: 16wk ob Chief Complaint: 16wk OB Fire Dispatcher Required: No Is patient in pain?: No Allergies No Known Allergies Allergy (Verified 11/03/24 10:20) Medications ???Medication ???Instructions ???Recorded ???Confirmed ???Type PNV 158-iron 13.5 mg-folic 0.5 cap PO 08/31/24 11/03/24 History mg-omega 3-dha 150 mg-epa-fish capsule (Natavi PNV) Last Menstrual Period: 04/06/24 : No PFSH PFSH Medical History Date of last menstrual period (LMP) unknown Supervision of high risk in first trimester Hx: UTI (urinary tract infection) Family History Father Hypertension Grandfather Hypertension Social History adopted: No household members: spouse and children housing: house number of children: 1 current occupational status: employed 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 current occupational exposures/hazards: No pets and animals: Yes (Not managing litterbox ) pets and animals: cat(s) and dog(s) history of recent travel: No sexually active: Yes Smoking Status: Never smoker alcohol intake: current details: occasionally- not while substance use type: does not use well-balanced diet: daily or most days caffeine: Yes (occasionally) Type: coffee Number of servings: 1 eating out: 1-3 times/week during the past year weight has: remained stable what type of physical activity do you participate in: walking, yoga and weight training frequency: 1-2 times per week duration: 15-30 minutes/day fam/restorationist: Restorationism seatbelt use: always do you feel safe at home: Yes additional social history: - [place], was in [employer] 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 Date Name GA/Weeks Outcome Route Bth Weight Gen Labor Lgth Anesthesia Del Locatn Provider FOB 03/04/23 Otonielnnamdidiana 40 live - full term 8lbs 9oz Female [facility] Ma rcanthony Delivery Date: 03/04/23 Last Updated by: Carisa Kevin IOL HPI 16wk ob Details: GIN OLEA is a 29 year old who presents for routine OB visit. OB Visit SANTOSH Calculator Estimated Delivery Date Method Current WG Current Estimate 04/19/25 Ultrasound #1 16w 1d Other Estimates 04/20/25 Ultrasound #2 16w 0d Expected Delivery Route/Plan Labor Preferences- CB/BF classes: [] labor support person: [] labor intervention preferences: [] pain management options preferred: [] cut cord/dad catch: [] : [] PP control planned: [] discussed possible routes of delivery and associated risks: [] special requests: [] Specific Issue/Plans Covid status: [] Flu vaccine: [] Tdap vaccine: [] Rhogam: [] LARC form signed: [] Problem list reviewed and updated with the most current plan of care details and appropriate orders placed. Relevant counseling for the gestational age provided. Continue routine care and follow up unless otherwise noted in visit notes/problem list details Initial Weight: Not Recorded Date -???-???-???-???-??? -???-???-???-???-??? -???-???- EGA Weight BP Urine Prot -???-???-???-???-??? -???-???-???-???-??? -???-???- Glucose FHR FuHt Pres Dilation -???-???-???-???-??? -???-???-???-???-??? -???-???- Effaced St Visit Note 09/08/24 -???-???-???-???-??? -???-???-???-???-??? -???-???- 8w 1d 236 lb 4 oz 116/80 -???-???-???-???-??? -???-???-???-???-??? -???-???- 165 -???-???-???-???-??? -???-???-???-???-??? -???-???- KW- CRL cons with early US. declines NIPT. 10/06/24 -???-???-???-???-??? -???-???-???-???-??? -???-???- 12w 1d 234 lb 115/75 Negative -???-???-???-???-??? -???-???-???-???-??? -???-???- Negative 172 -???-???-???-???-??? -???-???-???-???-??? -???-???- KW-work in f or JV. no vb/cramping. anatomy US ordered through hospital per her request. 11/03/24 -???-???-???-???-??? -???-???-???-???-??? -???-???- 16w 1d 233 lb 6 oz 109/68 Negative -???-???-???-???-??? -???-???-???-???-??? -???-???- Negative 146 -???-???-???-???-?? (more content not included)... Normal [facility] - Chemistry and C hemistry - challengeOrdered By: Adriana Joyce on 10-06-2024 Glucose Ql (U) Negative [facility] - UrinalysisOrder ed By: Adriana Joyce on 10-06-2024 Protein Ql (U) Negative [facility] Geometry Professor Office Visit Reporton 10-06-2024 Geometry Professor Office Visit Report [facility]'s [address], [address] [place] [id number] OFFICE VISIT Date of Service: 10/06/24 MR#: [id number] Acct: [id number] Name: GIN OLEA Rep #: [id number] : 1995 Provider: SANDY Galvan ams Age/Sex: 29/F Location: [facility] [place] Status: Signed Intake Vital Signs 06/30/24 15:11 09/08/24 10:31 10/06/24 15:49 10/06/24 15:50 10/06/24 15:51 Height 5 ft 5 in 5 ft 5 in 5 ft 5 in 5 ft 5 in Weight: 236 lb 4 oz 234 lb BMI 39.3 BP 116/80 115/75 Intake Visit Reasons: 12 WK OB Fire Dispatcher Required: No Is patient in pain?: No Allergies No Known Allergies Allergy (Verified 10/06/24 15:50) Medications ???Medication ???Instructions ???Recorded ???Confirmed ???Type PNV 158-iron 13.5 mg-folic 0.5 cap PO 08/31/24 10/06/24 History mg-omega 3-dha 150 mg-epa-fish capsule (Natavi PNV) Last Menstrual Period: 04/06/24 Zika: Zika virus screening: Negative : No PFSH PFSH Medical History Date of last menstrual period (LMP) unknown Supervision of high risk in first trimester Hx: UTI (urinary tract infection) Family History Father Hypertension Grandfather Hypertension Social History adopted: No household members: spouse and children housing: house number of children: 1 current occupational status: employed 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 current occupational exposures/hazards: No pets and animals: Yes (Not managing litterbox ) pets and animals: cat(s) and dog(s) history of recent travel: No sexually active: Yes Smoking Status: Never smoker alcohol intake: current details: occasionally- not while substance use type: does not use well-balanced diet: daily or most days caffeine: Yes (occasionally) Type: coffee Number of servings: 1 eating out: 1-3 times/week during the past year weight has: remained stable what type of physical activity do you participate in: walking, yoga and weight training frequency: 1-2 times per week duration: 15-30 minutes/day fam/restorationist: Restorationism seatbelt use: always do you feel safe at home: Yes additional social history: - [place], was in [employer] 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 Date Name GA/Weeks Outcome Route Bth Weight Gen Labor Lgth Anesthesia Del Locatn Provider FOB 03/04/23 Paxton 40 live - full term 8lbs 9oz Female [facility] Ma rcanthony Delivery Date: 03/04/23 Last Updated by: Carisa Kevin IOL HPI 12 WK OB Details: GIN OLEA is a 29 year old who presents for routine OB visit. OB Visit SANTOSH Calculator Estimated Delivery Date Method Current WG Current Estimate 04/19/25 Ultrasound #1 12w 1d Other Estimates 04/20/25 Ultrasound #2 12w 0d Expected Delivery Route/Plan Labor Preferences- CB/BF classes: [] labor support person: [] labor intervention preferences: [] pain management options preferred: [] cut cord/dad catch: [] : [] PP control planned: [] discussed possible routes of delivery and associated risks: [] special requests: [] Specific Issue/Plans Covid status: [] Flu vaccine: [] Tdap vaccine: [] Rhogam: [] LARC form signed: [] Problem list reviewed and updated with the most current plan of care details and appropriate orders placed. Relevant counseling for the gestational age provided. Continue routine care and follow up unless otherwise noted in visit notes/problem list details Initial Weight: Not Recorded Date -???-???-???-???-??? -???-???-???-???-??? -???-???- EGA Weight BP Urine Prot -???-???-???-???-??? -???-???-???-???-??? -???-???- Glucose FHR FuHt Pres Dilation -???-???-???-???-??? -???-???-???-???-??? -???-???- Effaced St Visit Note 09/08/24 -???-???-???-???-??? -???-???-???-???-??? -???-???- 8w 1d 236 lb 4 oz 116/80 -???-???-???-???-??? -???-???-???-???-??? -???-???- 165 -???-???-???-???-??? -???-???-???-???-??? -???-???- KW- CRL cons with early US. declines NIPT. 10/06/24 -???-???-???-???-??? -???-???-???-???-??? -???-???- 12w 1d 234 lb 115/75 Negative -???-???-???-???-??? -???-???-???-???-??? -???-???- Negative 172 -???-???-???-???-??? -???-???-???-???-??? -???-???- KW-work in f or JV. no vb/cramping. anatomy US ordered through hospital per her request. ACOG First Trimester First Trimester: Discussed Second Trimester Second Tri (more content not included)... Normal [facility] Chlamydia/GC ADUREY aptimaon CHLAMY,NUC ACID Negative Normal Negative [facility] Comment on above: Performed By: #### B TS, L100.0100, L509.4006, L7000.1800, L501.9985, L509.8002, M100.2200 ####[facility] [id number] [place], [place], [phone]) GC BY NUC ACID Negative Normal Negative [facility] Comment on above: Result Comment: Perf ormed at: =G - [facility] [address] [place] [id number] [employer] Upholsterer: Tete Hood MD, Phone: [phone] Performed By: #### B TS, L100.0100, L509.4006, L7000.1800, L501.9985, L509.8002, M100.2200 ####[facility] [id number] [place], [place], [phone] Urine Cultureon 09-09-2024 [facility] Culture exhibits no growth. Normal [facility] Comment on above: Performed By: #### B TS, L100.0100, L509.4006, L7000.1800, L501.9985, L509.8002, M100.2200 ####[facility] [address] [place], [place], [phone] Absolute lymphocyte countOrd ered By: Cony Pride on 09-08-2024 Lymphocytes Auto (Unsp spec) [#/Vol] 1.87 10*3/uL 0.83-4.51 [facility] Absolute neutrophil countOrd ered By: Cony Pride on 09-08-2024 Neutrophils (Bld) [#/Vol] 6.5 10*3/uL 2.0-7.7 [facility] Automated lymphocyte count a s percentage of total leukocytesOrdered By: Cony Pride on 09-08-2024 Lymphocytes/100 WBC Auto (Unsp spec) 20.8 % 19-41 [facility] Basophil percentageOrdered B y: Cony Pride on 09-08-2024 Basophils/100 WBC (Bld) 0.4 % 0-1 [facility] C. trachomatis rRNA UADREY+prob e Ql (Unsp spec)Ordered By: Cony Pride on 09-08-2024 Chlamydia DNA (AUDREY) Negative Negative [facility] CBC W/Diff, Automatedon 0 Absolute Lymph 1.87 X10 3/uL Normal 0.83-4.51 [facility] Comment on above: Performed By: #### B TS, L100.0100, L509.4006, L7000.1800, L501.9985, L509.8002, M100.2200 #### [facility] [address] [place], [address] Absolute Neut 6.5 X10 3/uL Normal 2.0-7.7 [facility] Comment on above: Performed By: #### B TS, L100.0100, L509.4006, L7000.1800, L501.9985, L509.8002, M100.2200 #### [facility] [address] [place], [address] Basophils/100 WBC (Bld) 0.4 % Normal 0-1 [facility] Comment on above: Performed By: #### B TS, L100.0100, L509.4006, L7000.1800, L501.9985, L509.8002, M100.2200 #### [facility] [address] [place], [address] Eosinophils/100 WBC (Bld) 0.9 % Normal 0-5 [facility] Comment on above: Performed By: #### B TS, L100.0100, L509.4006, L7000.1800, L501.9985, L509.8002, M100.2200 #### [facility] [address] [place], [address] Erythrocyte distribution width (RBC) [Ratio] 13.4 % Normal 11.6-14.6 [facility] Comment on above: Performed By: #### B TS, L100.0100, L509.4006, L7000.1800, L501.9985, L509.8002, M100.2200 #### [facility] [address] [place], [address] Hematocrit (Bld) [Volume fraction] 38.1 % Normal 37-47 [facility] Comment on above: Performed By: #### B TS, L100.0100, L509.4006, L7000.1800, L501.9985, L509.8002, M100.2200 #### [facility] [address] [place], [address] Hemoglobin (Bld) [Mass/Vol] 12.5 g/dL Normal 12.0-15.0 [facility] Comment on above: Performed By: #### B TS, L100.0100, L509.4006, L7000.1800, L501.9985, L509.8002, M100.2200 #### [facility] [address] [place], [address] IG% 0.300 Normal 0.0-0.9 [facility] Comment on above: Result Comment: IG% - Immature Granulocytes (promyelocytes, myelocytes and metamyelocytes) > 1% indicates that a LEFT SHIFT is Present. Performed By: #### B TS, L100.0100, L509.4006, L7000.1800, L501.9985, L509.8002, M100.2200 #### [facility] [address] [place], [address] Lymphocytes/100 WBC (Bld) 20.8 % Normal 19-41 [facility] Comment on above: Performed By: #### B TS, L100.0100, L509.4006, L7000.1800, L501.9985, L509.8002, M100.2200 #### [facility] [address] [place], [address] MCH (RBC) [Entitic mass] 27.3 pg Normal 27.0-32.0 [facility] Comment on above: Performed By: #### B TS, L100.0100, L509.4006, L7000.1800, L501.9985, L509.8002, M100.2200 #### [facility] [address] [place], [address] MCHC (RBC) [Mass/Vol] 32.8 g/dL Normal 32-36 [facility] Comment on above: Performed By: #### B TS, L100.0100, L509.4006, L7000.1800, L501.9985, L509.8002, M100.2200 #### [facility] [address] [place], [address] MCV (RBC) [Entitic vol] 83.2 fL Normal 81-99 [facility] Comment on above: Performed By: #### B TS, L100.0100, L509.4006, L7000.1800, L501.9985, L509.8002, M100.2200 #### [facility] [address] [place], [address] Monocytes/100 WBC (Bld) 5.2 % Normal 0-10 [facility] Comment on above: Performed By: #### B TS, L100.0100, L509.4006, L7000.1800, L501.9985, L509.8002, M100.2200 #### [facility] [address] [place], [address] Neutrophils/100 WBC (Bld) 72.4 % High 47-70 [facility] Comment on above: Performed By: #### B TS, L100.0100, L509.4006, L7000.1800, L501.9985, L509.8002, M100.2200 #### [facility] [address] [place], [address] Nucleated RBC (Bld) [#/Vol] 0 10*3/uL Normal 0-5 [facility] Comment on above: Performed By: #### B TS, L100.0100, L509.4006, L7000.1800, L501.9985, L509.8002, M100.2200 #### [facility] [address] [place], [address] Platelet mean volume (Bld) [Entitic vol] 10.6 fL Normal 6.2-12.0 [facility] Comment on above: Performed By: #### B TS, L100.0100, L509.4006, L7000.1800, L501.9985, L509.8002, M100.2200 #### [facility] [address] [place], [address] Platelets (Bld) [#/Vol] 359 10*3/uL Normal 150-450 [facility] Comment on above: Performed By: #### B TS, L100.0100, L509.4006, L7000.1800, L501.9985, L509.8002, M100.2200 #### [facility] [address] [place], [address] RBC (Bld) [#/Vol] 4.58 10*6/uL Normal 4.2-5.4 [facility] Comment on above: Performed By: #### B TS, L100.0100, L509.4006, L7000.1800, L501.9985, L509.8002, M100.2200 #### [facility] [address] [place], [address] RDW SD 40.7 fl Normal 35.1-43.9 [facility] Comment on above: Performed By: #### B TS, L100.0100, L509.4006, L7000.1800, L501.9985, L509.8002, M100.2200 #### [facility] [address] [place], [address] WBC (Bld) [#/Vol] 9.0 10*3/uL Normal 4.4-11.0 [facility] Comment on above: Performed By: #### B TS, L100.0100, L509.4006, L7000.1800, L501.9985, L509.8002, M1.2199 #### [facility] [address] [place], [address] Chlamydia trachomatis rRNA d etection by probe and target amplification methodOrdered By: Cony Pride on 09-08-2024 C. trachomatis rRNA AUDREY+probe Ql (Unsp spec) Negative Negative [facility] Eosinophil percentageOrdered By: Cony Pride on 09-08-2024 Eosinophils/100 WBC (Bld) 0.9 % 0-5 [facility] Erythrocyte distribution wid th ratioOrdered By: Cony Pride on 09-08-2024 Erythrocyte distribution width (RBC) [Ratio] 13.4 % 11.6-14.6 [facility] Erythrocyte distribution wid th standard deviationOrdered By: Cony Pride on 09-08-2024 Erythrocyte distribution width (RBC) [Entitic vol] 40.7 fL 35.1-43.9 [facility] Erythrocyte distribution width (RBC) [Ratio] 40.7 fl 35.1-43.9 [facility] Hematocrit Auto (Bld) [Volum e fraction]Ordered By: Cony Pride on 09-08-2024 Hematocrit (Bld) [Volume fraction] 38.1 % 37-47 [facility] Hemoglobin A1con 09-08-2024 HbA1c (Bld) [Mass fraction] 5.2 % Low <=5.6 [facility] Comment on above: Performed By: #### B TS, L100.0100, L509.4006, L7000.1800, L501.9985, L509.8002, M100.0 #### [facility] [address] [place], [address] Hemoglobin A1c percentageOrd ered By: Cony Pride on 09-08-2024 HbA1c (Bld) [Mass fraction] 5.2 % Low >5.7 [facility] Hemoglobin measurementOrdere d By: Cony Pride on 09-08-2024 Hemoglobin (Bld) [Mass/Vol] 12.5 g/dL 12.0-15.0 [facility] Immature granulocytes/100 WB C Auto (Bld)Ordered By: Cony Pride on 09-08-2024 Immature granulocytes/100 WBC (Bld) 0.300 % 0.0-0.9 [facility] Comment on above: IG% - Immature Granu locytes (promyelocytes, myelocytes and metamyelocytes) > 1% indicates that a LEFT SHIFT is Present. L3890.6006on 09-08-2024 HIV Non-Reactive Normal Nonreactive [facility] Comment on above: Result Comment: Non- Reactive Reactive Repeatedly reactive samples must be confirmed according to CDC recommended confirmatory algorithms. The subresults for either HIVAG or AHIV can be used as an aid in the selection of the confirmation algorithm for reactive samples. Send out specimens with Reactive results to [facility] for confirmation. Order the HIV antibody detection and differentiation: lc#[id number] Performed By: #### L 3890.6006 #### [facility] [address] [place], [address] L509.4006on 09-08-2024 Rubella IgG REAC Normal Nonreactive [facility] Comment on above: Result Comment: Anti body Result: Interpretation Non-Reactive: Non-Immune Reactive: Immune The following results were obtained with the [employer] Rubella IgG assay. Results from assays of other manufacturers cannot be used interchangeably. Performed By: #### B TS, L100.0100, L509.4006, L7000.1800, L501.9985, L509.8002, M100.2200 #### [facility] [address] [place], [address] L509.8002on 09-08-2024 Syphilis Abs Non-Reactive Normal Nonreactive [facility] Comment on above: Performed By: #### B TS, L100.0100, L509.4006, L7000.1800, L501.9985, L509.8002, M100.2200 #### [facility] [address] [place], [address] Lymphocytes Auto (Unsp spec) [#/Vol]Ordered By: Cony Pride on 09-08-2024 Lymphocytes (Bld) [#/Vol] 1.87 10*3/uL 0.83-4.51 [facility] Lymphocytes/100 WBC Auto (Un sp spec)Ordered By: Cony Pride on 09-08-2024 Lymphocytes/100 WBC (Bld) 20.8 % 19-41 [facility] MCV (mean corpuscular volume ) determinationOrdered By: Cony Pride on 09-08-2024 MCV (RBC) [Entitic vol] 83.2 fL 81-99 [facility] Mean corpuscular hemoglobin (MCH) determinationOrdered By: Cony Pride on 09-08-2024 MCH (RBC) [Entitic mass] 27.3 pg 27.0-32.0 [facility] Mean corpuscular hemoglobin concentration (MCHC) determinationOrdered By: Cony Pride on 09-08-2024 MCHC (RBC) [Mass/Vol] 32.8 g/dL 32-36 [facility] Mean platelet volume determi nationOrdered By: Cony Pride on 09-08-2024 Platelet mean volume (Bld) [Entitic vol] 10.6 fL 6.2-12.0 [facility] Monocyte percentageOrdered B y: Cony Pride on 09-08-2024 Monocytes/100 WBC (Bld) 5.2 % 0-10 [facility] Neisseria gonorrhoeae nuclei c acid detection by amplified probe techniqueOrdered By: Cony Pirde on 09-08-2024 N. gonorrhoeae DNA AUDREY+probe Ql (Unsp spec) Negative Negative [facility] Comment on above: Performed at: =[address] [id number] Director: Tete Hood MD, Phone: [phone] Neutrophil percentageOrdered By: Cony Pride on 09-08-2024 Neutrophils/100 WBC (Bld) 72.4 % High 47-70 [facility] No Panel InformationOrdered By: Lesley Obregon on 09-08-2024 HIV (1&2) Antibody Non-Reactive Nonreactive [facility] Comment on above: Non-ReactiveReactive Repeatedly reactive samples must be confirmed according to CDC recommended confirmatory algorithms. The subresults for either HIVAG or AHIV can be used as an aid in the selection of the confirmation algorithm for reactive samples.Send out specimens with Reactive results to [facility] for confirmation.Order the HIV antibody detection and differentiation: #[id number] Nucleated red blood cell per centageOrdered By: Cony Pride on 09-08-2024 Nucleated RBC/100 WBC (Bld) [Ratio] 0 % 0-5 [facility] Geometry Professor Office Visit Reporton 09-08-2024 Geometry Professor Office Visit Report [facility] [address], [address] [place] [address] OFFICE VISIT Date of Service: 09/08/24 MR#: [id number] Acct: [id number] Name: GIN OLEA Rep #: [id number] : 1995 Provider: SANDY Galvan ams Age/Sex: 29/F Location: [facility] [place] Status: Signed Intake Vital Signs 06/30/24 15:11 09/08/24 10:31 Height 5 ft 5 in 5 ft 5 in Weight: 236 lb 4 oz BMI 39.3 BP 116/80 Intake Visit Reasons: NOB LMP ? Chief Complaint: New OB Is patient in pain?: No Allergies No Known Allergies Allergy (Verified 09/08/24 10:36) Medications ???Medication ???Instructions ???Recorded ???Confirmed ???Type PNV 158-iron 13.5 mg-folic 0.5 cap PO 08/31/24 09/08/24 History mg-omega 3-dha 150 mg-epa-fish capsule (Natavi PNV) Last Menstrual Period: 04/06/24 : No PFSH PFSH Medical History (Updated 09/08/24 @ 10:54 by Lesley Obregon CNM) Date of last menstrual period (LMP) unknown Supervision of high risk in first trimester Hx: UTI (urinary tract infection) Family History Father Hypertension Grandfather Hypertension Social History adopted: No household members: spouse and children housing: house number of children: 1 current occupational status: employed 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 current occupational exposures/hazards: No pets and animals: Yes (Not managing litterbox ) pets and animals: cat(s) and dog(s) history of recent travel: No sexually active: Yes Smoking Status: Never smoker alcohol intake: current details: occasionally- not while substance use type: does not use well-balanced diet: daily or most days caffeine: Yes (occasionally) Type: coffee Number of servings: 1 eating out: 1-3 times/week during the past year weight has: remained stable what type of physical activity do you participate in: walking, yoga and weight training frequency: 1-2 times per week duration: 15-30 minutes/day fam/restorationist: Restorationism seatbelt use: always do you feel safe at home: Yes additional social history: - [place], was in [employer] 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 Date Name GA/Weeks Outcome Route Bth Weight Infant Gen Labor Lgth Anesthesia Del Locatn Provider FOB 03/04/23 [place] 40 live - full term 8lbs 9oz Female [facility] rcanthony Delivery Date: 03/04/23 Last Updated by: Carisa Kevin IOL HPI NOB LMP ? Details: GIN OLEA is a 29 year old who presents for New OB visit. OB Visit SANTOSH Calculator Estimated Delivery Date Method Current WG Current Estimate 04/19/25 Ultrasound #1 8w 1d Other Estimates 04/20/25 Ultrasound #2 8w 0d Comments: HIV: Urine Culture: Sequential Screen: NIPT Screen: Estimated Due Date: 04/20/25 Expected Delivery Route/Plan Labor Preferences- CB/BF classes: [] labor support person: [] labor intervention preferences: [] pain management options preferred: [] cut cord/dad catch: [] : [] PP control planned: [] discussed possible routes of delivery and associated risks: [] special requests: [] Specific Issue/Plans Covid status: [] Flu vaccine: [] Tdap vaccine: [] Rhogam: [] LARC form signed: [] Problem list reviewed and updated with the most current plan of care details and appropriate orders placed. Relevant counseling for the gestational age provided. Continue routine care and follow up unless otherwise noted in visit notes/problem list details Initial Weight: Not Recorded Date -???-???-???-???-??? -???-???-???-???-??? -???-???- EGA Weight BP Urine Prot -???-???-???-???-??? -???-???-???-???-??? -???-???- Glucose FHR FuHt Pres Dilation -???-???-???-???-??? -???-???-???-???-??? -???-???- Effaced St Visit Note 09/08/24 -???-???-???-???-??? -???-???-???-???-??? -???-???- 8w 1d 236 lb 4 oz 116/80 -???-???-???-???-??? -???-???-???-???-??? -???-???- 165 -???-???-???-???-??? -???-???-???-???-??? -???-???- KW- CRL cons with early US. declines NIPT. Menstrual History Last Menstrual Period: 04/06/24 Reported LMP: unknown Normal amount/duration: No On hormonal BC at conception: No hCG+: 08/11/24 Antepartum Record Genetic Screening: Congenital Heart Defect: Other, Neural Tube Defect: Other, Hemoglobinopathy Or Carrier: Other, Cystic Fibrosis: Other, Chromosome Abnormality: Other, Giovany-Sachs: Other, Hemophilia: Other, Intellectual Disability/Autism: Oth (more content not included)... Normal [facility] Platelet countOrdered By: Luiz Pride on 09-08-2024 Platelets (Bld) [#/Vol] 359 10*3/uL 150-450 [facility] RBC Auto (Bld) [#/Vol]Ordere d By: Cony Pride on 09-08-2024 RBC (Bld) [#/Vol] 4.58 10*6/uL 4.2-5.4 [facility] Rubella immune status determ ination by IgG antibody assayOrdered By: Cony Pride on 09-08-2024 Rubella IgG Antibody REAC Nonreactive [facility] Comment on above: Antibody Result: Int erpretationNon-Reactive: Non-ImmuneReactive: ImmuneThe following results were obtained with the [employer] Rubella IgG assay. Results from assays of other manufacturers cannot be used interchangeably. T. pallidum abOrdered By: Luiz Pride on 09-08-2024 Syphilis Total Antibody Non-Reactive Nonreactiv e [facility] Type AND Screenon Ab SCREEN GEL Negative Normal [facility] Comment on above: Order Comment: PN Performed By: #### B TS, L100.0100, L509.4006, L7000.1800, L501.9985, L509.8002, M100.2200 ####[facility] [address] [place], [place], [id number] ABO and Rh group Nom (Bld) Blood group A Rh(D) negative Normal [facility] Comment on above: Order Comment: PN Performed By: #### B TS, L100.0100, L509.4006, L7000.1800, L501.9985, L509.8002, M100.2200 ####[facility] [address] [place], [place], [id number] Urine cultureOrdered By: Sergio Pride on 09-08-2024 Bacteria identified Cx Nom (U) Culture exhibits no growth. [facility] White blood cell (WBC) count Ordered By: Cony Pride on 09-08-2024 WBC (Bld) [#/Vol] 9.0 10*3/uL 4.4-11.0 [facility] Transvaginal w/Preg USon Transvaginal w/Preg US [facility] [address] [place], [place] [address] Transvaginal w/Preg US MR#: [id number] Acct: [id number] Name: GIN OLEA Rep #: [id number] : 1995 F 29 From: Alireza cameron MD PCP: Care Physician,No Primary Status: REG CLI Study: Transvaginal w/Preg US Date of Exam: 08/24/24 Exam# [id number] Ordering Dr: Adriana Hadley DO PROCEDURE: TRANSVAGINAL W/PREG US REASON FOR EXAM: LMP: Unknown Dating. COMPARISON: None. FINDINGS: Number of Gestational Sacs: 1 Gestational Sac Shape: Normal Number of Fetuses: 1 Heart Rate: Not detected at this time. Survey of Visible Anatomic Structures: Grossly unremarkable for gestational age. Yolk Sac: Present and unremarkable. Placenta: Presently not well-visualized Amniotic Fluid Volume: Subjectively normal for gestational age. Uterine Abnormalities: Maternal uterus is unremarkable. Ovaries / Adnexa: Both maternal ovaries are visualized and unremarkable. DIMENSIONS: Parameter Measurement / EGA Mila Doce Rump Length: 2 mm/6 weeks 0 days Gestational Sac: 1.3 cm/6 weeks 0 days Yolk Sac: 4 mm/ ESTIMATED GESTATIONAL AGE: By Ultrasound: 6 weeks 0 days By LMP: Unknown ESTIMATED DATE OF DELIVERY: By Ultrasound: April 19, 2025 US/Transvaginal w/Preg US IMPRESSION: Intrauterine gestation with a mean gestational age of 6 weeks and 0 days. No cardiac activity noted at this time. Follow-up recommended. Reading Location: [facility] CC: Dr. Adriana Hadley, DO; No Primary Care Physician Slab Depiler Operator: Signed Normal [facility] HCG ( test) QlOrder ed By: Adriana Joyce on 08-19-2024 Human Chorionic Gonadotropin, Quant 3946 mIU/mL High <4 [facility] Comment on above: hCG levels with Gest ational AgeGestational Age hCG mIU/mL (IU/L)0.2 - 1 week 5 - 501-2 weeks 50 - 5002-3 weeks 100 - 03413-9 weeks 500 - 958315-3 weeks 1000 - 154460-2 weeks 26367 - 100,0006-8 weeks 12078 - 200,0002-3 months 95742 - 100,000 Serum human chorionic gonado tropin detection for pregnancyOrdered By: Adriana Joyce on 08-19-2024 HCG ( test) Ql 3946 mIU/mL High <4 [facility] Comment on above: hCG levels with Gest ational AgeGestational Age hCG mIU/mL (IU/L)0.2 - 1 week 5 - 501-2 weeks 50 - 5002-3 weeks 100 - 64294-7 weeks 500 - 321800-2 weeks 1000 - 072456-6 weeks 47276 - 100,0006-8 weeks 22020 - 200,0002-3 months 74013 - 100,000 hCG Titer Quant., Serumon HCG QUANT. 3946 mIU/mL High 1-3 [facility] Comment on above: Result Comment: hCG levels with Gestational Age Gestational Age hCG mIU/mL (IU/L) 0.2 - 1 week 5 - 50 1-2 weeks 50 - 500 2-3 weeks 100 - 5000 3-4 weeks 500 - 56860 4-5 weeks 1000 - 71138 5-6 weeks 87070 - 100,000 6-8 weeks 74519 - 200,000 2-3 months 13008 - 100,000 Performed By: #### L 700.4296 ####[facility] [address] [place], [place], [id number] HCG ( test) QlOrder ed By: Adriana Joyce on 08-17-2024 Human Chorionic Gonadotropin, Quant 1870 mIU/mL High <4 [facility] Comment on above: hCG levels with Gest ational AgeGestational Age hCG mIU/mL (IU/L)0.2 - 1 week 5 - 501-2 weeks 50 - 5002-3 weeks 100 - 37301-6 weeks 500 - 289298-3 weeks 1000 - 911966-2 weeks 62444 - 100,0006-8 weeks 91164 - 200,0002-3 months 53222 - 100,000 Serum human chorionic gonado tropin detection for pregnancyOrdered By: Adriana Joyce on 08-17-2024 HCG ( test) Ql 1870 mIU/mL High <4 [facility] Comment on above: hCG levels with Gest ational AgeGestational Age hCG mIU/mL (IU/L)0.2 - 1 week 5 - 501-2 weeks 50 - 5002-3 weeks 100 - 88470-3 weeks 500 - 764860-8 weeks 1000 - 800572-4 weeks 75096 - 100,0006-8 weeks 33015 - 200,0002-3 months 47156 - 100,000 hCG Titer Quant., Serumon HCG QUANT. 1870 mIU/mL High 1-3 [facility] Comment on above: Result Comment: hCG levels with Gestational Age Gestational Age hCG mIU/mL (IU/L) 0.2 - 1 week 5 - 50 1-2 weeks 50 - 500 2-3 weeks 100 - 5000 3-4 weeks 500 - 17183 4-5 weeks 1000 - 14734 5-6 weeks 03950 - 100,000 6-8 weeks 89612 - 200,000 2-3 months 49070 - 100,000 Performed By: #### L 700.8000 ####[facility] [address], [place], [id number] HCG ( test) QlOrder ed By: Adriana Joyce on 07-07-2024 Human Chorionic Gonadotropin, Quant 879 mIU/mL High <4 [facility] Comment on above: hCG levels with Gest ational AgeGestational Age hCG mIU/mL (IU/L)0.2 - 1 week 5 - 501-2 weeks 50 - 5002-3 weeks 100 - 99572-9 weeks 500 - 002342-0 weeks 1000 - 372362-1 weeks 99404 - 100,0006-8 weeks 34913 - 200,0002-3 months 05787 - 100,000 hCG Titer Quant., Serumon HCG QUANT. 879 mIU/mL High 1-3 [facility] Comment on above: Result Comment: hCG levels with Gestational Age Gestational Age hCG mIU/mL (IU/L) 0.2 - 1 week 5 - 50 1-2 weeks 50 - 500 2-3 weeks 100 - 5000 3-4 weeks 500 - 53819 4-5 weeks 1000 - 94981 5-6 weeks 98130 - 100,000 6-8 weeks 63678 - 200,000 2-3 months 50340 - 100,000 Performed By: #### L 700.8000 ####[facility] [address] [place], [address] HCG ( test) QlOrder ed By: Ashley Jacques on 07-02-2024 Human Chorionic Gonadotropin, Quant 3635 mIU/mL High <4 [facility] Comment on above: hCG levels with Gest ational AgeGestational Age hCG mIU/mL (IU/L)0.2 - 1 week 5 - 501-2 weeks 50 - 5002-3 weeks 100 - 74985-3 weeks 500 - 199114-6 weeks 1000 - 421707-0 weeks 38889 - 100,0006-8 weeks 86759 - 200,0002-3 months 34932 - 100,000 hCG Titer Quant., Serumon HCG QUANT. 3635 mIU/mL High 1-3 [facility] Comment on above: Result Comment: hCG levels with Gestational Age Gestational Age hCG mIU/mL (IU/L) 0.2 - 1 week 5 - 50 1-2 weeks 50 - 500 2-3 weeks 100 - 5000 3-4 weeks 500 - 57702 4-5 weeks 1000 - 45202 5-6 weeks 67086 - 100,000 6-8 weeks 03210 - 200,000 2-3 months 31510 - 100,000 Performed By: #### L 700.8000 #### [facility] [address] [place], [place], [address] HCG ( test) QlOrder ed By: Nicole Hutchinson on 06-30-2024 Human Chorionic Gonadotropin, Quant 3695 mIU/mL High <4 [facility] Comment on above: hCG levels with Gest ational AgeGestational Age hCG mIU/mL (IU/L)0.2 - 1 week 5 - 501-2 weeks 50 - 5002-3 weeks 100 - 16788-0 weeks 500 - 767373-2 weeks 1000 - 521093-8 weeks 55492 - 100,0006-8 weeks 03523 - 200,0002-3 months 34917 - 100,000 Geometry Professor Office Visit Reporton 06-30-2024 Geometry Professor Office Visit Report [facility] [address], [address] [place] [address] OFFICE VISIT Date of Service: 06/30/24 MR#: [id number] Acct: [id number] Name: GIN OLEA Rep #: [id number] : 1995 Provider: CORNELIUS ingram Age/Sex: 29/F [place] [facility] [place]: Signed Intake Vital Signs 04/28/24 14:48 06/30/24 14:56 06/30/24 15:11 Height 5 ft 5 in 5 ft 5 in 5 ft 5 in Weight: 237 lb BMI 39.4 BP 111/74 Intake Visit Reasons: rhogam injection Fire Dispatcher Required: No Is patient in pain?: No Allergies No Known Allergies Allergy (Verified 06/30/24 15:12) Medications ???Medication ???Instructions ???Recorded ???Confirmed ???Type multivit-min no.71-iron fum 28 1 cap PO 07/30/22 06/30/24 History mg-folate no.1 1 mg-dha 300 mg capsule (PNV-Sophia) Is last menstrual period known: Yes Post menopausal: No Patient : Yes : No PFSH Medical History Hx: UTI (urinary tract infection) Family History Father Hypertension Grandfather Hypertension Social History adopted: No household members: spouse housing: house current occupational status: employed 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 current occupational exposures/hazards: No pets and animals: Yes (Not managing litterbox ) pets and animals: cat(s) and dog(s) history of recent travel: No sexually active: Yes Smoking Status: Never smoker alcohol intake: current details: occasionally- not while substance use type: does not use well-balanced diet: daily or most days caffeine: Yes (occasionally) Type: coffee Number of servings: 1 eating out: 1-3 times/week during the past year weight has: remained stable what type of physical activity do you participate in: walking, yoga and weight training frequency: 1-2 times per week duration: 15-30 minutes/day fam/restorationist: Restorationism seatbelt use: always do you feel safe at home: Yes additional social history: - [place]- Currently in [employer] 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 Date Name GA/Weeks Outcome Route Bth Weight Infant Gen Labor Lgth Anesthesia Del Locatn Provider FOB 03/04/23 Otonielinna 40 live - full term 8lbs 9oz Female [facility] rcanthony Delivery Date: 03/04/23 Last Updated by: Carisa REYNOLDS Coding Level of Care Code No Charge Diagnoses Bleeding in early O20.9 Assessment and Plan Assessment and Plan (1) Bleeding in early : Status: Acute Comment: rhogam given Orders: Orders Type Screen Today O26.899 - Other specified related conditions, unspecified trimester, Z67.91 - Unspecified blood type, Rh negative hCG Titer Quant., Serum Today O36.80X0 - with inconclusive viability, not applicable or unspecified 06/30/24 6355 Date Nicole Hutchinson NP, NP-C Sg Signature: Date (if applicable) CC: Normal [facility] Transvaginal w/Preg USon 12- 27-2024 Transvaginal w/Preg US [facility] [address] [place] [address] Transvaginal w/Preg US MR#: [id number] Acct: [id number] Name: GIN OLEA Rep #: [id number] : 1995 F 29 From: Jay chinchilla MD PCP: Care Physician,No Primary Status: REG CLI Study: Transvaginal w/Preg US Date of Exam: 06/30/24 Exam# [id number] Ordering Dr: Nicole Hutchinson NP, [place] [id number] INDICATION: well being EXAMINATION: US OB Transvaginal TECHNIQUE: Transvaginal (for optimal evaluation of the adnexa) pelvic ultrasound was performed. Grayscale, spectral waveform, and color flow Doppler evaluation of the adnexa. COMPARISON: None. ____ FINDINGS: UTERUS: Measures 10.3 cm in length.. RIGHT OVARY:: Not visualized. LEFT OVARY: Not visualized. FREE FLUID: None. INTRAUTERINE GESTATIONAL SAC(s) (size/shape): Single. Mean sac diameter of 1.1 mm. No adnexal ectopic visualized. US/Transvaginal w/Preg US IMPRESSION: Intrauterine of uncertain viability. There is an intrauterine gestational sac with no yolk sac or embryo. Recommend serial beta hCGs and follow-up OB ultrasound in 1-2 weeks. Electronically Signed: Jay Hartman MD at 16:53 EST , CC: CORNELIUS Hutchinson; No Primary Care Physician Slab Depiler Operator: Signed Normal [facility] Type AND Screenon 06-30-2024 Ab SCREEN GEL Negative Normal [facility] Comment on above: Order Comment: PN Performed By: #### B TS ####[facility] [address] [place], [place], [address] ABO and Rh group Nom (Bld) Blood group A Rh(D) negative Normal [facility] Comment on above: Order Comment: PN Performed By: #### B TS ####[facility] [address] [place], [address] hCG Titer Quant., Serumon HCG QUANT. 3695 mIU/mL High 1-3 [facility] Comment on above: Result Comment: hCG levels with Gestational Age Gestational Age hCG mIU/mL (IU/L) 0.2 - 1 week 5 - 50 1-2 weeks 50 - 500 2-3 weeks 100 - 5000 3-4 weeks 500 - 17349 4-5 weeks 1000 - 79475 5-6 weeks 62767 - 100,000 6-8 weeks 16769 - 200,000 2-3 months 15018 - 100,000 Performed By: #### L 700.8000 #### [facility] [address] [place], [address] PAP I-G w/rfx hrHPV-Aptimaon 05-05-2024 ADEQ Comment Normal . [facility] Comment on above: Order Comment: Speci men Comment: [id number] Comment: No. of containers..01 ThinPrep Vial Result Comment: Sati sfactory for evaluation. Endocervical and/or squamous metaplastic cells (endocervical component) are present. Performed By: #### L 7400.0353 ####[facility] [address] [place], [address] COMM . Normal . [facility] Comment on above: Order Comment: Speci men Comment: [id number] Comment: No. of containers..01 ThinPrep Vial Performed By: #### L 7400.0353 ####[facility] [address] [place], [address] COMMENT Comment Normal . [facility] Comment on above: Order Comment: Speci men Comment: [id number] Comment: No. of containers..01 ThinPrep Vial Result Comment: This liquid based ThinPrep(R) pap test was screened with the use of an image guided system. Performed By: #### L 7400.0353 ####[facility] [address] [place], [address] DIAG Comment Normal . [facility] Comment on above: Order Comment: Speci men Comment: [id number] Comment: No. of containers..01 ThinPrep Vial Result Comment: NEGA TIVE FOR INTRAEPITHELIAL LESION OR MALIGNANCY. Performed By: #### L 7400.0353 ####[facility] [address] [place], [address] HPV RFLX Comment Normal . [facility] Comment on above: Order Comment: Speci men Comment: [id number] Comment: No. of containers..01 ThinPrep Vial Result Comment: The HPV DNA reflex criteria were not met with this specimen result therefore, no HPV testing was performed. Performed at: [address] [id number] [employer] Upholsterer: Tete Hood MD, Phone: [phone] Performed By: #### L 7400.0353 ####[facility] [address] [place], [place], [address] PAPSMR Comment Normal . [facility] Comment on above: Order Comment: Speci men Comment: [id number] Comment: No. of containers..01 ThinPrep Vial Result Comment: The Pap smear is a screening test designed to aid in the detection of premalignant and malignant conditions of the uterine cervix. It is not a diagnostic procedure and should not be used as the sole means of detecting cervical cancer. Both false-positive and false-negative reports do occur. Performed By: #### L 7400.0353 ####[facility] [address] [place], [address] PERFORM Comment Normal . [facility] Comment on above: Order Comment: Speci men Comment: [id number] Comment: No. of containers..01 ThinPrep Vial Result Comment: Jessica Hammonds, Unarmed Security Officer (ASCP) Performed By: #### L 7400.0353 ####[facility] [address] [place], [address] Geometry Professor Office Visit Reporton 04-28-2024 Geometry Professor Office Visit Report [facility] [address], [address] [place] [address] OFFICE VISIT Date of Service: 04/28/24 MR#: [id number] Acct: [id number] Name: GIN OLEA Rep #: [id number] : 1995 Provider: Dr. 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) Fire Dispatcher Required: No Is patient in pain?: No Allergies No Known Allergies Allergy (Verified 04/28/24 14:45) Medications ???Medication ???Instructions ???Recorded ???Confirmed ???Type multivit-min no.71-iron fum 28 1 cap PO 07/30/22 04/28/24 History mg-folate no.1 1 mg-dha 300 mg capsule (PNV-Sophia) Is last menstrual period known: Yes Last Menstrual Period: 04/06/24 Post menopausal: No Patient : No : Yes PFSH Medical History Hx: UTI (urinary tract infection) Family History Father Hypertension Grandfather Hypertension Social History adopted: No household members: spouse housing: house current occupational status: employed 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 current occupational exposures/hazards: No pets and animals: Yes (Not managing litterbox ) pets and animals: cat(s) and dog(s) history of recent travel: No sexually active: Yes Smoking Status: Never smoker alcohol intake: current details: occasionally- not while substance use type: does not use well-balanced diet: daily or most days caffeine: Yes (occasionally) Type: coffee Number of servings: 1 eating out: 1-3 times/week during the past year weight has: remained stable what type of physical activity do you participate in: walking, yoga and weight training frequency: 1-2 times per week duration: 15-30 minutes/day fam/restorationist: Restorationism seatbelt use: always do you feel safe at home: Yes additional social history: - [place]- Currently in [facility] 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 Date Name GA/Weeks Outcome Route Bth Weight Gen Labor Lgth Anesthesia Del Locatn Provider FOB 03/04/23 Kalinna 40 live - full term 8lbs 9oz Female [facility] rcanthony Delivery Date: 03/04/23 Last Updated by: Carisa ASCENCIO HPI Encounter for routine gynecological examination Details: GIN OLEA is a 29 year old who presents for annual exam. actively trying to get . still breast feeding her 14 month old. Last PAP: due History of abnormal PAP: no Last mammogram: due at 40 History of abnormal mammogram: n/a Colon cancer screening: due at 45 Other preventative health care screenings: no PCP Female Reproductive History Last Menstrual Period: 04/06/24 Cycle Length: 21-35 Bleeding Duration: 5 Questions: metorrhagia: No, sexually active: Yes, dyspareunia: No and PCB: No Menopausal Symptoms: No hot flashes, No night sweats, No weight change, No mood changes, No difficulty concentrating, No sleep problems and No change in libido ROS Const Constitutional: Reports as per HPI; Denies fatigue, increased appetite, poor appetite, night sweats, weight gain or weight loss Cardio Card: Denies chest pain Resp Resp: Denies cough or dyspnea GI GI: Reports as per HPI; Denies abdominal pain, bloating, constipation, nausea or vomiting : Reports as per HPI and other; Denies difficulty voiding, dysuria, hematuria, hot flashes, nipple discharge, pelvic pain, prolapse symptoms, urinary frequency, urinary incontinence, urinary urgency, vaginal discharge, vaginal dryness, vaginal odor or vaginal pruritus Skin Skin/Breast: Denies changing lesions, breast mass, breast pain, breast skin changes or nipple discharge Psych Psych: Denies anxiety, change in libido, depression or difficulty concentrating Exam Const General: cooperative, healthy appearing, comfortable, no acute distress, well developed and well groomed HENLA Head: normal to inspection and normocephalic Ears: hearing grossly normal bilaterally and external ears normal Nose: external nose normal Face and sinus: normal facial exam Neck Neck: normal visual inspection, full ROM and no lymphadenopathy Thyroid: thyroid normal Chest Chest palpation inspection: normal inspection of the chest Breast inspection: normal inspection of the breasts and normal inspection of the axill (more content not included)... Normal [facility] - Chemistry and C hemistry - challengeon 10-01-2022 Glucose Ql (U) Negative [facility] - Urinalysison Protein Ql (U) Negative [facility] Absolute lymphocyte countOrd ered By: Dr. Joyce on 09-03-2022 Lymphocytes Auto (Unsp spec) [#/Vol] 2.06 10*3/uL 0.83-4.51 [facility] Basophil percentageOrdered B y: Dr. Joyce on 09-03-2022 Basophils/100 WBC (Bld) 0.3 % 0-1 [facility] Eosinophils/100 WBC (Bld) 1.0 % 0-5 [facility] Neutrophils (Bld) [#/Vol] 6.5 10*3/uL 2.0-7.7 [facility] Neutrophils/100 WBC (Bld) 68.6 % 47-70 [facility] WBC (Bld) [#/Vol] 9.4 10*3/uL 4.4-11.0 [facility] Blood erythrocytes count (nu mber/volume)Ordered By: Dr. Joyce on 09-03-2022 RBC (Bld) [#/Vol] 4.53 10*6/uL 4.2-5.4 [facility] Blood hemoglobin measurement (mass/volume)Ordered By: Dr. Joyce on 09-03-2022 Hemoglobin (Bld) [Mass/Vol] 12.2 g/dL 12.0-15.0 [facility] Blood lymphocytes/100 leukoc ytesOrdered By: Dr. Joyce on 09-03-2022 Lymphocytes/100 WBC (Bld) 21.8 % 19-41 [facility] Blood monocytes/100 leukocyt esOrdered By: Dr. Joyce on 09-03-2022 Monocytes/100 WBC (Bld) 6.8 % 0-10 [facility] Blood platelet mean volumeOr dered By: Dr. Joyce on 09-03-2022 Platelet mean volume (Bld) [Entitic vol] 10.2 fL 6.2-12.0 [facility] Determination of erythrocyte mean corpuscular volume (MCV)Ordered By: Dr. Joyce on 09-03-2022 MCV (RBC) [Entitic vol] 82.1 fL 81-99 [facility] Gestational diabetes screen 1-hour screen with 50g oral glucose loadOrdered By: Dr. Joyce on 09-03-2022 Glucose 1 Hr post 50 g glucose PO [Mass/Vol] 104 mg/dL 70-140 [facility] HIV 1 and HIV-2 antibody ass ay with HIV-1 p24 antigen detectionOrdered By: Dr. Joyce on 09-03-2022 HIV 1+2 Ab+HIV1 p24 Ag IA Ql Non-Reactive Nonreactive [facility] Hematocrit Auto (Bld) [Volum e fraction]Ordered By: Dr. Joyce on 09-03-2022 Hematocrit (Bld) [Volume fraction] 37.2 % 37-47 [facility] - Chemistry and C hemistry - challengeon 09-03-2022 Glucose Ql (U) Negative [facility] - Hematology and Cell countsOrdered By: Dr. Joyce on 09-03-2022 Erythrocyte distribution width (RBC) [Entitic vol] 38.9 fL 35.1-43.9 [facility] Erythrocyte distribution width (RBC) [Ratio] 13.1 % 11.6-14.6 [facility] Immature granulocytes/100 WBC (Bld) 1.500 % 0.0-0.9 [facility] Comment on above: IG% - Immature Granu locytes (promyelocytes, myelocytes and metamyelocytes) > 1% indicates that a LEFT SHIFT is Present. MCH (RBC) [Entitic mass] 26.9 pg 27.0-32.0 [facility] Nucleated RBC/100 WBC (Bld) [Ratio] 0 % 0-5 [facility] - Urinalysison Protein Ql (U) Negative [facility] MCHC Auto (RBC) [Mass/Vol]Or dered By: Dr. Joyce on 09-03-2022 MCHC (RBC) [Mass/Vol] 32.8 g/dL 32-36 [facility] No Panel InformationOrdered By: Dr. Joyce on 09-03-2022 Hepatitis B Surface Antigen Non-Reactive Nonreactive [facility] Hepatitis C Antibody Non-Reactive Nonreactive [facility] Comment on above: Non Reactive: < 0.8 Equivocal: >/= 0.8 to < 1.0 Reactive: >/= 1.0The CDC recommends that a reactive/equivocal HCV antibody result be followed up by the HCV Nucleic Acid Amplificationtest (799744) Rubella IgG Antibody Reactive Nonreactive [facility] Comment on above: Antibody Results Int erpretation of Immune Status Non Reactive Presumed Non-Immune Equivocal Equivocal Reactive Presumed Immune Platelets bldOrdered By: Dr. Joyce on 09-03-2022 Platelets (Bld) [#/Vol] 287 10*3/uL 150-450 [facility] Serum Treponema species anti body detectionOrdered By: Dr. Joyce on 09-03-2022 Treponema sp Ab Ql (S) Non-Reactive [facility] Culture, urineOrdered By: Dr Elda Joyce on 08-07-2022 Bacteria identified Cx Nom (U) Culture exhibits no growth. [facility] Chlamydia trachomatis rRNA d etection by probe and target amplification methodOrdered By: Dr. Joyce on 08-05-2022 C. trachomatis rRNA AUDREY+probe Ql (Unsp spec) Negative Negative [facility] - Microbiology an d Antimicrobial susceptibilityOrdered By: Dr. Joyce on 08-05-2022 N. gonorrhoeae DNA AUDRYE+probe Ql (Unsp spec) Negative Negative [facility] Comment on above: Performed at: =[address] [place], [place] [id number] Director: Tete Hood MD, Phone: [phone] Vital Signs Date Time Vital Sign Value Performing Clinician Lyle nevarez 12-29-2024 10:18-0400 Body height 165.1 cm No Primary Care Physician [facility] 12-29-2024 10:18-0400 Body mass index (BMI) [Ratio] 40.1 kg/m2 No Primary Care Physician [facility] 12-29-2024 10:18-0400 Body weight 109.42 kg No Primary Care Physician [facility] 12-29-2024 10:18-0400 Diastolic blood pressure 68 mm[Hg] No Primary Care Physician [facility] 12-29-2024 10:18-0400 Systolic blood pressure 102 mm[Hg] No Primary Care Physician [facility] 12-01-2024 14:19-0400 Body height 165.1 cm No Primary Care Physician [facility] 12-01-2024 14:13-0400 Body mass index (BMI) [Ratio] 39.4 kg/m2 No Primary Care Physician [facility] 12-01-2024 14:13-0400 Body weight 107.61 kg No Primary Care Physician [facility] 12-01-2024 14:13-0400 Diastolic blood pressure 65 mm[Hg] No Primary Care Physician [facility] 12-01-2024 14:13-0400 Systolic blood pressure 117 mm[Hg] No Primary Care Physician [facility] 11-03-2024 10:23-0400 Body mass index (BMI) [Ratio] 38.8 kg/m2 No Primary Care Physician [facility] 11-03-2024 10:23-0400 Body weight 105.85 kg No Primary Care Physician [facility] 11-03-2024 10:23-0400 Diastolic blood pressure 68 mm[Hg] No Primary Care Physician [facility] 11-03-2024 10:23-0400 Systolic blood pressure 109 mm[Hg] No Primary Care Physician [facility] 10-06-2024 15:51-0400 Body weight 106.14 kg No Primary Care Physician [facility] 10-06-2024 15:49-0400 Diastolic blood pressure 75 mm[Hg] No Primary Care Physician [facility] 10-06-2024 15:49-0400 Systolic blood pressure 115 mm[Hg] No Primary Care Physician [facility] 09-08-2024 10:31-0500 Body height 165.1 cm No Primary Care Physician [facility] 09-08-2024 10:31-0500 Body mass index (BMI) [Ratio] 39.3 kg/m2 No Primary Care Physician [facility] 09-08-2024 10:31-0500 Body weight 107.16 kg No Primary Care Physician [facility] 09-08-2024 10:31-0500 Diastolic blood pressure 80 mm[Hg] No Primary Care Physician [facility] 09-08-2024 10:31-0500 Systolic blood pressure 116 mm[Hg] No Primary Care Physician [facility] 06-30-2024 15:11-0500 Body mass index (BMI) [Ratio] 39.4 kg/m2 No Primary Care Physician [facility] 06-30-2024 15:11-0500 Body weight 107.5 kg No Primary Care Physician [facility] 06-30-2024 15:11-0500 Diastolic blood pressure 74 mm[Hg] No Primary Care Physician [facility] 06-30-2024 15:11-0500 Systolic blood pressure 111 mm[Hg] No Primary Care Physician [facility] 10-01-2022 14:46-0400 Body height 165.[address] Jermaine Rodrigues Work Phone: [facility] 10-01-2022 14:46-0400 Body mass index (BMI) [Ratio] 38.5 kg/m2 Dr. Jermaine Rodriguse Work Phone: [facility] 10-01-2022 14:46-0400 Body weight 104.[address] Jermaine Rodrigues Work Phone: [facility] 10-01-2022 14:46-0400 Diastolic blood pressure 71 mm[Hg] Dr. Jermaine Rodrigues Work Phone: [phone] [place] [address] 10-01-2022 14:46-0400 Systolic blood pressure 137 mm[Hg] Dr. Jermaine Rodrigues Work Phone: [facility] 09-03-2022 12:58-0500 Body height 165.[address] Jermaine Rodrigues Work Phone: [facility] 09-03-2022 12:58-0500 Body mass index (BMI) [Ratio] 38.1 kg/m2 Dr. Jermaine Rodrigues Work Phone: [facility] 09-03-2022 12:58-0500 Body weight 103.[address] Jermaine Rodrigues Work Phone: [facility] 09-03-2022 12:58-0500 Diastolic blood pressure 64 mm[Hg] Dr. Jermaine Rodrigues Work Phone: [facility] 09-03-2022 12:58-0500 Systolic blood pressure 116 mm[Hg] Dr. Jermaine Rodrigues Work Phone: [facility] 08-05-2022 09:21-0500 Body height 165.[address] Jermaine Rodrigues Work Phone: [facility] 08-05-2022 09:21-0500 Body mass index (BMI) [Ratio] 38.6 kg/m2 Dr. Jermaine Rodrigues Work Phone: [facility] 08-05-2022 09:21-0500 Body weight 105.[address] Jermaine Rodrigues Work Phone: [facility] 08-05-2022 09:21-0500 Diastolic blood pressure 76 mm[Hg] Dr. Jermaine Rodrigues Work Phone: [facility] 08-05-2022 09:21-0500 Systolic blood pressure 118 mm[Hg] Dr. Jermaine Rodrigues Work Phone: [facility] Encounters Encounter Date Encounter Type Care Provider Facility Start: 01-26-2025 ambulatory No Primary Car e Physician Facility:[facility] [place] Start: 12-29-2024 End: 12-29-[address] Adriana Hadley DO -[facility] Work Phone: Start: 12-29-2024 End: 12-29-2024 ambulatory No Primary Care Physician -[facility] Start: 12-14-2024 End: 12-14-2024 ambulatory No Primary Care Physician [facility] Work Phone: Start: 12-14-2024 End: 12-14-2024 Patient encounter procedure Lesley Obregon CNM -Ultrasound [facility] Work Phone: Start: 12-14-2024 End: 12-14-2024 ambulatory No Primary Care Physician Facility:[facility] Start: 12-01-2024 End: 12-01-2024 ambulatory No Primary Care Physician [facility] Work Phone: Start: 12-01-2024 End: 12-01-2024 Patient encounter procedure Lesley Obregon CNM -Ultrasound [facility] Work Phone: Start: 12-01-2024 End: 12-01-[address] Cony Pride MD -[facility] Work Phone: Start: 12-01-2024 End: 12-01-2024 ambulatory No Primary Care Physician [facility] Work Phone: Start: 12-01-2024 End: 12-01-2024 ambulatory No Primary Care Physician Facility:[facility] Start: 11-03-2024 End: 11-03-2024 Patient encounter procedure Lesley Obregon CNM -[facility] Work Phone: Start: 11-03-2024 End: 11-03-2024 ambulatory No Primary Care Physician Facility:[facility] Start: 10-06-2024 End: 10-06-2024 Patient encounter procedure Lesley Obregon CNM -[facility] Work Phone: Start: 10-06-2024 End: 10-06-2024 ambulatory No Primary Care Physician Facility:[facility] Start: 09-08-2024 End: 09-08-2024 Patient encounter procedure Lesley Obregon CNM -[facility] Work Phone: Start: 09-08-2024 End: 09-08-2024 ambulatory No Primary Care Physician [facility] Work Phone: Start: 09-08-2024 End: 09-08-2024 ambulatory No Primary Care Physician Facility:[facility] Start: 08-24-2024 End: 08-24-[address] Adriana Pierce, [facility] Work Phone: Start: 08-24-2024 End: 08-24-2024 ambulatory Adriana Hadley Facility:[facility] Start: 08-19-2024 End: 08-19-[address] Adriana Hadley DO -Laboratory Work Phone: Start: 08-19-2024 End: 08-19-2024 ambulatory Adriana Juaquin Joyce Facility:[facility] Start: 08-17-2024 End: 08-17-[address] Adriana Hadley DO -Lab, [facility] Start: 08-17-2024 End: 08-17-2024 ambulatory Adriana Hadley Facility:[facility] Start: 07-07-2024 End: 07-07-[address] Cony Pride MD -Lab, [facility] Start: 07-07-2024 End: 07-07-2024 ambulatory No Primary Care Physician Facility:[facility] Start: 07-02-2024 End: 07-02-2024 Patient encounter procedure Nicole Hutchinson NP-C -Laboratory Work Phone: Start: 07-02-2024 End: 07-02-2024 ambulatory Nicole Hutchinson COURSE DEVELOPER Facility:[facility] Start: 06-30-2024 End: 06-30-2024 Patient encounter procedure Nicole Hutchinson COURSE DEVELOPER-C -[facility] Work Phone: Start: 06-30-2024 End: 06-30-2024 ambulatory No Primary Care Physician Facility:[facility] Start: 06-30-2024 End: 06-30-2024 ambulatory No Primary Care Physician Facility:[facility] Start: 04-28-2024 Encounter for gynecological examination (general) (routine) without abnormal findings Adriana Buttgriffin [facility] Start: 04-28-2024 End: 04-28-2024 ambulatory Adriana Hadley Facility:[facility] Start: 04-28-2024 End: 04-28-2024 ambulatory Adrianaceci Hadley Facility:[facility] Start: 10-08-2022 End: 10-08-[address] Jermaine Rodrigues Work Phone: [facility] Work Phone: Start: 10-08-2022 End: 10-08-[address] Jermaine Rodrigues Work Phone: [facility] Start: 10-01-2022 End: 10-01-[address] Jermaine Rodrigues Work Phone: [facility] Start: 09-03-2022 End: 09-03-[address] Jermaine Rodrigues Work Phone: [facility] Work Phone: Start: 09-03-2022 End: 09-03-[address] Jermaine Rodrigues Work Phone: [facility] Start: 08-05-2022 End: 08-05-[address] Jermaine Rodrigues Work Phone: [facility] Work Phone: Start: 08-05-2022 End: 08-05-[address] Jermaine Rodrigues Work Phone: [facility] Specimen Start: 08-05-2022 End: 08-05-[address] Jermaine Rodrigues [facility] Phone[facility] Start: 12-21-2016 End: 12-22-2016 Ambulatory Ambrocio Greer Facility:[facility] Procedures Date Procedure Procedure Detail Performing Clinician Start: 12-14-2024 Ultrasonography for antepartum monitoring of fetus No Primary Care Physician Start: 12-01-2024 Ultrasonography in f irst trimester No Primary Care Physician Start: 09-08-2024 Urine culture No Primar y Care Physician Start: 09-08-2024 Rubella IgG measurement No Primary Care Physician Comment on above: Antibody Result: Int erpretationNon-Reactive: Non- ImmuneReactive: ImmuneThe following results were obtained with the [employer] Rubella IgG assay. Results from assays of other manufacturers cannot be used interchangeably. Start: 09-08-2024 Serologic test for syphilis No Primary Care Physician Start: 08-24-2024 Transvaginal obstetr ic ultrasonography No Primary Care Physician Start: 06-30-2024 Transvaginal obstetr ic ultrasonography No Primary Care Physician Start: 10-08-2022 End: 10-08-[address] Jermaine Rodrigues Work Phone: [facility] Work Phone: Plan of Treatment Date Care Activity Detail Author CBC W Auto Differential panel - Blood [facility] CBC W Auto Differential panel - Blood [facility] Glucose [Mass/volume ] in Serum or Plasma --1 hour post 50 g glucose PO [facility] Hepatitis B surface antigen measurement [facility] Hepatitis C antibody measurement [facility] HIV 1+2 Ab+HIV1 p24 Ag [Presence] in Serum or Plasma by Immunoassay [facility] Measurement of gluco se 2 hours after glucose challenge for glucose tolerance test [facility] Rubella IgG measurement [facility] Serologic test for syphilis [facility] Treponema sp Ab [Presence] in Serum [facility] Payers Date Payer Category Payer Unknown [id number] 2024 Self-pay [id number] 2023 Private Health Insurance [id number] 2016 [employer] ( and others) Unknown ANTHEM [id number] Unknown [facility] [id number] Unknown [id number] [id number] 2 Unknown [id number] 2.16.840.1.357584.3.579.2.46 2 Unknown [id number] 2.16.840.1.628673.3.579.2.46 2 Unknown [id number] 2.16.840.1.441074.3.579.2.46 2 Unknown [id number] 2.16.840.1.835824.3.579.2.46 2 Unknown [id number] 2.16.840.1.295007.3.579.2.46 2 Unknown [id number] 2.16.840.1.290644.3.579.2.46 2 Unknown [id number] 2.16.840.1.905515.3.579.2.46 2 Unknown [id number] 2.16.840.1.486697.3.579.2.46 2 Unknown [id number] 2.16.840.1.742366.3.579.2.46 2 Unknown [id number] 2.16.840.1.549238.3.579.2.46 2 Unknown [id number] 2.16.840.1.911249.3.579.2.46 2 Unknown [id number] 2.16.840.1.506850.3.579.2.46 2 Unknown [id number] 2.16.840.1.767721.3.579.2.46 2 Unknown [id number] 2.16.840.1.837328.3.579.2.46 2 Unknown [id number] 2.16.840.1.337252.3.579.2.46 2 Unknown [id number] 2.16.840.1.417859.3.579.2.46 2 Unknown [id number] 2.16.840.1.122392.3.579.2.46 2 Unknown [id number] 2.16.840.1.497030.3.579.2.46 2 Social History Date Type Detail Facility Start: 08-05-2022 End: 10-01-2022 Tobacco smoking status NHIS Unknown if ever smoked [facility] Start: 1995 Sex Assigned At Female [facility] Start: 08-31-2024 Tobacco smoking stat us NHIS Never smoked tobacco (finding) [facility] Start: 09-20-2024 Sex Female (finding) [facility] Clinical Notes 06-30-2024 to 12-15-2024 Note Date & Type Note Facility 12-15-2024 Radiology Diagnostic study note [facility] Imaging Services [address] [place] [address] OB Limited (No Biometrics) MR#: [id number] Acct: [id number] Name: GIN OLEA Rep #: [id number] : 1995 F 29 From: Ford Mayorga MD PCP: Care Physician,No Primary Status: REG CLI Study:OB Limited (No Biometrics) Date of Exam : 12/14/24 Exam# [id number] Ordering Dr: Lesley Obregon CNM PROCEDURE: OB LIMITED (NO BIOMETRICS) 12/14/2024 REASON FOR EXAM: FOCUS ON HEART, CORD, AND GENDER. TECHNIQUE: High resolution obstetric ultrasound performed using a 2D transducer. Standard views obtained, including biometry, anatomy survey, and Doppler studies. FINDINGS Number: 1 Position: Transverse right Placental Position: Anterior and not low-lying Placental Abnormalities: No evidence of previa. ESTIMATED GESTATIONAL AGE: Baseline: 22 weeks and 0 days By Ultrasound: ESTIMATED DATE OF DELIVERY: Baseline: April 19, 2025 BIOPHYSICAL ASSESSMENT: Amniotic Fluid Volume: 5.3 cm Cardiac Motion: 140 beats per minute (average) Trunk and Limb Motion: Present. Four-chamber heart view was visualized. It is unremarkable. Three-vessel umbilical cord. Gender: Male US/OB Limited (No Biometrics) IMPRESSION: The heart, are unremarkable. Reading Location: [id number] CC: SANDY Obregon; No Primary Care Physician ~ Slab Depiler Operator: Signed [facility] 12-04-2024 Radiology Diagnostic study note [facility] Services [address] [place] [address] OB Anatomy w/ Transvaginal MR#: [id number] Acct: [id number] Name: GIN OLEA Rep #: [id number] : 1995 F 29 From: Per Cruz MD PCP: Care Physician,No Primary Status: REG CLI Study:OB Anatomy w/ Transvaginal Date of Exam : 12/01/24 Exam# [id number] Ordering Dr: Lesley Obregon CNM PROCEDURE: OB ANATOMY W/ TRANSVAGINAL 12/01/2024 REASON FOR EXAM: ANATOMY TECHNIQUE: High resolution obstetric ultrasound performed using a 2D transducer. Standard views obtained, including biometry, anatomy survey, and Doppler studies. FINDINGS Limited scan due to excessive movement. Number: 1 Position: Cephalic Placental Position: Posterior. Grade 0 Placental Abnormalities: No placenta previa DIMENSIONS: Biparietal Diameter: 4.8 cm / 20w3d Head Circumference: 18.1 cm / 20w3d Abdominal Circumference: 17 cm / 22w0d Femur Length: 3.5 cm / 21w0d ESTIMATED WEIGHT: 424 gm +/- 64 gm ESTIMATED WEIGHT PERCENTILE (24+ weeks): 96 % ESTIMATED GESTATIONAL AGE: Baseline: 20w1d By Ultrasound: 20w5d ESTIMATED DATE OF DELIVERY: Baseline: 04/19/2025 By Ultrasound: 04/15/2025 BIOPHYSICAL ASSESSMENT: Amniotic Fluid : Normal Cardiac Motion: 153 (average) Trunk and Limb Motion: Present. MATERNAL ANATOMY: Adnexa: Neither maternal ovary is successfully identified. Cervical Length : 4.4 ANATOMY: Spine: Visualized Cranium: Visualized Cerebellum: Visualized Cisterna Magna: Visualized Cavum Septum Pellucidi: Visualized Lateral Ventricles: Visualized Choroid Plexus: Visualized Midline Falx: Visualized Nuchal Fold: Visualized Upper Lip: Visualized Heart: 4CH is not seen Ventricular Outflow Tracts: Visualized Stomach: Visualized Kidneys: Visualized Bladder: Visualized Umbilical Cord: 3 VC is not seen. Extremities: Visualized US/OB Anatomy w/ Transvaginal IMPRESSION: Single viable intrauterine fetus in cephalic presentation. Limited 4CH cardiac views and 3VC, otherwise unremarkable anatomy. LMP GA 20w1d Ultrasound GA 20w5d Reading [facility] CC: SANDY Obregon; No Primary Care Physician ~ Slab Depiler Operator: Signed [facility] 12-01-2024 Progress note [facility] 12-01-2024 Progress note Note Date/Time December 01, 2024 2:36pm [facility] [address], [address] [place] [address] OFFICE VISIT Date of Service: 12/01/24 MR#: [id number] Acct: [id number] Name: GIN OLEA Rep #: [id number] : [id number] Provider: Dr. Mason Pride MD Age/Sex: 29/F Location: [facility] [place] [facility] Status: Signed Intake Vital Signs 09/08/24 10:31 11/03/24 10:23 12/01/24 14:13 12/01/24 14:19 Height 5 ft 5 in 5 ft 5 in 5 ft 5 in 5 ft 5 in Weight: 237 lb 4 oz BMI 39.4 BP 117/65 Intake Visit Reasons: 20wk ob Fire Dispatcher Required: No Is patient in pain?: No Allergies No Known Allergies Allergy (Verified 12/01/24 14:14) Medications ?Medication ?Instructions ?Recorded ?Confirmed ?Type PNV 158-iron 13.5 mg-folic 0.5 cap PO 08/31/24 5 History mg-omega 3-dha 150 mg-epa-fish capsule (Natavi PNV) Last Menstrual Period: 04/06/24 Zika: Zika virus screening: Negative : No PFSH PFSH Medical History Date of last menstrual period (LMP) unknown Supervision of high risk in first trimester Hx: UTI (urinary tract infection) Family History Father Hypertension Grandfather Hypertension Social History adopted: No household members: spouse and children housing: house number of children: 1 current occupational status: employed 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 current occupational exposures/hazards: No pets and animals: Yes (Not managing litterbox ) pets and animals: cat(s) and dog(s) history of recent travel: No sexually active: Yes Smoking Status: Never smoker alcohol intake: current details: occasionally- not while substance use type: does not use well-balanced diet: daily or most days caffeine: Yes (occasionally) Type: coffee Number of servings: 1 eating out: 1-3 times/week during the past year weight has: remained stable what type of physical activity do you participate in: walking, yoga and weight training frequency: 1-2 times per week duration: 15-30 minutes/day fam/restorationist: Restorationism seatbelt use: always do you feel safe at home: Yes additional social history: - [place], was in [employer] 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 Date Name GA/Weeks Outcome Route Bth Weight Gen Labor Lgth Anesthesia Del Locatn Provider FOB 03/04/23 [place] 40 live - full term 8lbs 9oz Female [facility] Bigg Delivery Date: 03/04/23 Last Updated by: Carisa Kevin IOL HPI 20wk ob Details: GIN OLEA is a 29 year old who presents for routine OB visit. OB Visit [facility] Calculator Estimated Delivery Date Method Current WG Current Estimate 04/19/25 Ultrasound #1 20w 1d Other Estimates 04/20/25 Ultrasound #2 20w 0d Expected Delivery Route/Plan Labor Preferences- CB/BF classes: [] labor support person: [] labor intervention preferences: [] pain management options preferred: [] cut cord/dad catch: [] : [] PP control planned: [] discussed possible routes of delivery and associated risks: [] special requests: [] Specific Issue/Plans Covid status: [] Flu vaccine: [] Tdap vaccine: [] Rhogam: [] LARC form signed: [] Problem list reviewed and updated with the most current plan of care details and appropriate orders placed. Relevant counseling for the gestational age provided. Continue routine care and follow up unless otherwise noted in visit notes/problem list details Initial Weight: Not Recorded Date -?-?-?-?-?-?-?-?-?-?-?-?- EGA Weight BP Urine Prot -?-?-?-?-?-?-?-?-?-?-?-?- Glucose FHR FuHt Pres Dilation -?-?-?-?-?-?--?-?-?-?-?-?- Effaced St Visit Note 09/08/24 -?-?-?-?-?-?-?-?-?-?-?-?- 8w 1d 236 lb 4 oz 116/80 -?-?-?-?-?-?-?-?-?-?-?-?- 165 -?-?-?-?-?-?-?-?-?-?-?-?- KW- CRL cons wit h early US. declines NIPT. 10/06/24 -?-?-?-?-?-?-?-?-?-?-?-?- 12w 1d 234 lb 115/75 Negative -?-?-?-?-?-?-?-?-?-?-?-?- Negative 172 -?-?-?-?-?-?-?-?-?-?-?-?- KW-work in for J V. no vb/cramping. anatomy US ordered through hospital per her request. 11/03/24 -?-?-?-?-?-?-?-?-?-?-?-?- 16w 1d 233 lb 6 oz 109/68 Nega tive -?-?-?-?-?-?-?-?-?-?-?-?- Negative 146 -?-?-?-?-?-?-?-?-?-?-?-?- KW- no vb/crampi ng. US scheduled. Discussed AFP-declined. 12/01/24 -?-?-?-?-?-?-?-?-?-?-?-?- 20w 1d 237 lb 4 oz 117/65 Nega tive -?-?-?-?-?-?-?-?-?-?-?-?- Negative 145 -?-?-?-?-?-?-?-?-?-?-?-?- SM- no vb lof cr amping US today ACOG First Trimester First Trimester: Discussed Second Trimester Second Trimester: Signs and Symptoms of Labor, Selecting a care provider, Reproductive Life Planning & Contreception, Care Planning, Depression/Anxiety and Intimate Partner Violence; Discussed Tobacco Cessation Third Trimester Third Trimester: Pain Management Plans, Labor support person(s), Immediate Larc, Movement Monitoring, Signs and Symptoms of Preeclampsia and [place] Education Results POC Urinalysis 2 Dip (Clinic) Office Urine Glucose Negative Last Edit by Nicole Urbina on 12/01/24 14:20 Office Urine Protein Negative Last Edit by Nicole Urbina on 12/01/24 14:20 Coding Level of Care Code OB Routine Diagnoses Obesity (BMI 30-39.9) E66.9 20 weeks gestation of Z3A.20 Weeks of gestation: 20 weeks Supervision of high risk in first trimester O09.91 Obesity affecting O99.210 Rh negative status during O26.899; Z67.91 Assessment and Plan Assessment and Plan (1) Obesity (BMI 30-39.9): Status: Acute (2) : Status: Acute Qualifiers: Weeks of gestation: 20 weeks Qualified Code(s): Z3A.20 - 20 weeks gestation of Comment: NIPT w gender/carrier- declines (3) Supervision of high risk in first trimester: Status: Acute Comment: , SANTOSH 04/19/25 BRIANA [place] (4) Obesity affecting : Status: Acute Comment: HgbA1c ordered with NOB. Encouraged healthy weight gain (5) Rh negative status during : Status: Acute Comment: Rhogam given 12/27/24 due to bleeding in prior /miscarriage Orders: Orders POC Urinalysis 2 Dip (Clinic) Today 12/01/24 1436 <Electronically signed by Cony rich MD> Date _ Cony Pride MD Cosigner Signature: Date (if applicable) CC: ~ [facility] Work Phone: 1(604) 978-285903-07-2025 Evaluation note* Diagnosis Onset Date Resolution Status Admit Date Obesity (BMI 30-39.9) acute [facility] 2024 10:21am Obesity affecting acute September 08, 2024 10:21am acute September 08 10:21am Rh negative status during acute September 08, 2024 10:21am Supervision of high risk in first trimester acute [facility] 2024 10:21am Date of last menstrual perio d (LMP) unknown inactive September 08, 2024 10:21am Obesity (BMI 30-39.9) acute Oct 3:52pm Obesity affecting acute October 06, 2024 3:52pm acute October 06 3:52pm Rh negative status during acute October 06, 2024 3:52pm Supervision of high risk in first trimester acute Oct 3:52pm Obesity (BMI 30-39.9) acute November 03, 2024 10:18am Obesity affecting acute November 03, 2024 10:18am acute November 03, 2024 10:18am Rh negative status during acute November 03, 2024 10 :18am Supervision of high risk in first trimester acute November 03, 2024 10:18am Obesity (BMI 30-39.9) acute December 01, 2024 2:06pm Obesity affecting acute December 01, 2024 2:06pm acute December 01, 2024 2:06pm Rh negative status during acute December 01, 2024 2 :06pm Supervision of high risk in first trimester acute December 01, 2024 2:06pm [facility] Work Phone: 1([phone]) 372-360303-07-2025 Evaluation note* Diagnosis Onset Date Resolution Status Admit Date Obesity (BMI 30-39.9) acute Sep 10:21am Obesity affecting acute September 08, 2024 10:21am acute September 08 10:21am Rh negative status during acute September 08, 2024 10:21am Supervision of high risk in first trimester acute Sep 10:21am Date of last menstrual perio d (LMP) unknown inactive September 08, 2024 10:21am Obesity (BMI 30-39.9) acute Oct 3:52pm Obesity affecting acute October 06, 2024 3:52pm acute October 06 3:52pm Rh negative status during acute October 06, 2024 3:52pm Supervision of high risk in first trimester acute Oct 3:52pm Obesity (BMI 30-39.9) acute November 03, 2024 10:18am Obesity affecting acute November 03, 2024 10:18am acute November 03, 2024 10:18am Rh negative status during acute November 03, 2024 10 :18am Supervision of high risk in first trimester acute November 03, 2024 10:18am Obesity (BMI 30-39.9) acute December 01, 2024 2:06pm Obesity affecting acute December 01, 2024 2:06pm acute December 01, 2024 2:06pm Rh negative status during acute December 01, 2024 2 :06pm Supervision of high risk in first trimester acute December 01, 2024 2:06pm Obesity (BMI 30-39.9) acute Dec 10:16am Obesity affecting acute December 29, 2024 10:16am acute December 29 10:16am Rh negative status during acute December 29, 2024 10:16am Supervision of high risk in first trimester acute Dec 10:16am Supervision of high-risk acute December 29, 2024 10:16am [facility] Work Phone: [phone]) 584-904612-27-2024 Evaluation note* Diagnosis Onset Date Resolution Status Admit Date Bleeding in early inactive June 30, 2024 2:52pm Obesity (BMI 30-39.9) acute Mar 2024 10:21am Obesity affecting acute September 08, 2024 10:21am acute September 08 10:21am Rh negative status during acute September 08, 2024 10:21am Supervision of high risk in first trimester acute Sep 2024 10:21am Date of last menstrual perio d (LMP) unknown inactive September 08, 2024 10:21am [facility] Work Phone: Evaluation note* Diagnosis Onset Date Resolution Status Obesity affecting acute acute Seasonal allergies acute Supervision of high risk , antepartum [facility] Work Phone: Evaluation note* Diagnosis Onset Date Resolution Status Obesity affecting acute acute Supervision of high risk , antepartum acute Seasonal allergies resolved Obesity affecting acute acute Supervision of high risk , antepartum [facility] Work Phone: [phone] note* Diagnosis Onset Date Resolution Status Obesity affecting acute acute Supervision of high risk , antepartum acute Seasonal allergies resolved Obesity affecting acute acute Supervision of high risk , antepartum acute Obesity affecting acute acute Rh negative status during acute Supervision of high risk , antepartum [facility] Work Phone: Reason for referral (narrative)No reason for referral information [facility] Work Phone: Summary Purpose Family History No Family History Records Found Relationship Condition Age at Onset Recorded Date/T janny father Hypertension Unknown grandfather Hypertension Unknown Advance Directives No Advanced Directives Records FoundNo Advanced Directives Records Found Chief Complaint and Reason for Visit Chief Complaint NOB LMP 05/28 Reason for Visit Obesity affecting pr egnancy Seasonal allergies Supervision of high risk , antepartum Chief Complaint NOB LMP 05/28 INT LABS 1 HOUR DRAW AT 12:40 14 WK OB Reason for Visit Obesity affecting pr egnancy Supervision of high risk , antepartum Seasonal allergies Obesity affecting Supervision of high risk , antepartum Chief Complaint NOB LMP 05/28 INT LABS 1 HOUR DRAW AT 12:40 14 WK OB 18 WK OB Reason for Visit Obesity affecting pr egnancy Supervision of high risk , antepartum Seasonal allergies Obesity affecting Supervision of high risk , antepartum Obesity affecting Rh negative status during Supervision of high risk , antepartum Chief Complaint Admit Date rhogam injection June 30, 2024 2:52pm with inconclusive viabil ity June 30, 2024 3:13pm EORDER August 19, 2024 11:15am DATING August 24, 2024 3:58pm NOB LMP ? September 08, 2024 10:2 1am Reason for Visit Admit Date Bleeding in early June 2:52pm Obesity (BMI 30-39.9) September 08, 2024 10 :21am Obesity affecting September 08 10:21am September 08, 2024 10:2 1am Rh negative status during [facility] 2024 10:21am Supervision of high risk in rst trimester September 08, 2024 10:21am Date of last menstrual period (LMP) unkn own September 08, 2024 10:21am Chief Complaint Admit Date EORDER August 19, 2024 11:15am DATING August 24, 2024 3:58pm NOB LMP ? September 08, 2024 10:2 1am 12 WK OB October 06, 2024 3:52 pm 16wk ob November 03, 2024 10:18a m 20wk ob December 01, 2024 2:06p m Reason for Visit Admit Date Obesity (BMI 30-39.9) September 08, 2024 10 :21am Obesity affecting September 08 10:21am September 08, 2024 10:2 1am Rh negative status during [facility] 2024 10:21am Supervision of high risk in fi rst trimester September 08, 2024 10:21am Date of last menstrual period (LMP) unkn own September 08, 2024 10:21am Obesity (BMI 30-39.9) October 06, 2024 3: 52pm Obesity affecting October 06 3:52pm October 06, 2024 3:52 pm Rh negative status during [facility] 2024 3:52pm Supervision of high risk in fi rst trimester October 06, 2024 3:52pm Obesity (BMI 30-39.9) November 03, 2024 10:1 8am Obesity affecting November 03 10:18am November 03, 2024 10:18a m Rh negative status during November 03, 2024 10:18am Supervision of high risk in fi rst trimester November 03, 2024 10:18am Obesity (BMI 30-39.9) December 01, 2024 2:0 6pm Obesity affecting December 01 2:06pm December 01, 2024 2:06p m Rh negative status during December 01, 2024 2:06pm Supervision of high risk in fi rst trimester December 01, 2024 2:06pm Chief Complaint Admit Date EORDER August 19, 2024 11:15am DATING August 24, 2024 3:58pm NOB LMP ? September 08, 2024 10:2 1am 12 WK OB October 06, 2024 3:52 pm 16wk ob November 03, 2024 10:18a m 20wk ob December 01, 2024 2:06p m Supervision of high risk , unsp ecified, f December 01, 2024 3:17pm Chief Complaint Admit Date DATING August 24, 2024 3:58pm NOB LMP ? September 08, 2024 10:2 1am 12 WK OB October 06, 2024 3:52 pm 16wk ob November 03, 2024 10:18a m 20wk ob December 01, 2024 2:06p m Supervision of high risk , unsp ecified, f December 01, 2024 3:17pm SUPERVIONS- additional view (NOT CHANTELLE T O DO TEST) December 14, 2024 3:19pm Chief Complaint Admit Date NOB LMP ? September 08, 2024 10:2 1am 12 WK OB October 06, 2024 3:52 pm 16wk ob November 03, 2024 10:18a m 20wk ob December 01, 2024 2:06p m Supervision of high risk , unsp ecified, f December 01, 2024 3:17pm SUPERVIONS- additional view (NOT CHANTELLE T O DO TEST) December 14, 2024 3:19pm 24 wk ob December 29, 2024 10:1 6am Reason for Visit Admit Date Obesity (BMI 30-39.9) September 08, 2024 10 :21am Obesity affecting September 08, 2 025 10:21am September 08, 2024 10:2 1am Rh negative status during [facility] 2024 10:21am Supervision of high risk in fi rst trimester September 08, 2024 10:21am Date of last menstrual period (LMP) unkn own September 08, 2024 10:21am Obesity (BMI 30-39.9) October 06, 2024 3: 52pm Obesity affecting October 06 025 3:52pm October 06, 2024 3:52 pm Rh negative status during [facility] 2024 3:52pm Supervision of high risk in fi rst trimester October 06, 2024 3:52pm Obesity (BMI 30-39.9) November 03, 2024 10:1 8am Obesity affecting November 03 10:18am November 03, 2024 10:18a m Rh negative status during November 03, 2024 10:18am Supervision of high risk in fi rst trimester November 03, 2024 10:18am Obesity (BMI 30-39.9) December 01, 2024 2:0 6pm Obesity affecting December 01 2:06pm December 01, 2024 2:06p m Rh negative status during December 01, 2024 2:06pm Supervision of high risk in fi rst trimester December 01, 2024 2:06pm Obesity (BMI 30-39.9) December 29, 2024 10 :16am Obesity affecting December 29 025 10:16am December 29, 2024 10:1 6am Rh negative status during December 29, 2024 10:16am Supervision of high risk in fi rst trimester December 29, 2024 10:16am Supervision of high-risk December 29, 2024 10:16am Additional Source Comments INFORMATION SOURCE (unrecogn ized section and content) DATE CREATED AUTHOR 12/29/2017 [facility] DATE CREATED AUTHOR AUTHOR'S JESUS LÓPEZ 01/22/2025 [facility] Care Teams (unrecognized sec tion and content) Team Status: Active Member Role Status Dates Dr. Jermaine Rodrigues MD Family Provider Active Dr. Jermaine Rodrigues MD Primary Care Provider Active Team Status: Inactive Member Role Status Dates Dr. Jermaine Rodrigues MD Primary Care Provider, Referr ing Provider Active Dr. Adriana Hadley DO Attending Provider Activ e Team Status: Inactive Member Role Status Dates Dr. Jermaine Rodrigues MD Primary Care Provider Active Dr. Adriana Hadley DO Attending Provider Activ e Team Status: Active Member Role Status Dates Dr. Jermaine Rodrigues MD Family Provider Active No Primary Care Physician Primary Care Provider Active Team Status: Inactive Member Role Status Dates Dr. Jermaine Rodrigues MD Referring Provider Active Dr. Adriana Hadley DO Attending Provider Activ e No Primary Care Physician Primary Care Provider Active Team Status: Inactive Member Role Status Dates No Primary Care Physician Primary Care Provider Active Dr. Adriana Hadley DO Attending Provider, Refe rring Provider Active Team Status: Inactive Member Role Status Dates No Primary Care Physician Primary Care Provider, Refer ring Provider Active Dr. Adriana Hadley DO Attending Provider Activ e Team Status: Inactive Member Role Status Dates No Primary Care Physician Primary Care Provider Active Dr. Adriana Hadley DO Attending Provider Activ e Team Status: Active Member Role Status Dates No Primary Care Physician Primary Care Provider Active Team Status: Inactive Member Role Status Dates No Primary Care Physician Primary Care Provider Active Start: June 30, 2024 End: June 30, 2024 No Primary Care Physician Referring Provider Active Start: June 30, 2024 End: June 30, 2024 Nicole Hutchinson COURSE DEVELOPER, COURSE DEVELOPER-C Attending Provider Active Start: June 30, 2024 End: June 30, 2024 Team Status: Inactive Member Role Status Dates No Primary Care Physician Primary Care Provider Active Start: June 30, 2024 End: June 30, 2024 Lesley Obregon CNM Attending Provider Active S tart: June 30, 2024 End: June 30, 2024 Lesley Obregon CNM Referring Provider Active S tart: June 30, 2024 End: June 30, 2024 Team Status: Inactive Member Role Status Dates No Primary Care Physician Primary Care Provider Active Start: June 30, 2024 End: June 30, 2024 Nicole Hutchinson COURSE DEVELOPER, COURSE DEVELOPER-C Attending Provider Active Start: June 30, 2024 End: June 30, 2024 Nicole Hutchinson COURSE DEVELOPER, COURSE DEVELOPER-C Referring Provider Active Start: June 30, 2024 End: June 30, 2024 Team Status: Inactive Member Role Status Dates No Primary Care Physician Primary Care Provider Active Start: July 02, 2024 End: July 02, 2024 Nicole Hutchinson COURSE DEVELOPER, COURSE DEVELOPER-C Attending Provider Active Start: July 02, 2024 End: July 02, 2024 Team Status: Inactive Member Role Status Dates No Primary Care Physician Primary Care Provider Active Start: July 07, 2024 End: July 07, 2024 Dr. Cony Pride MD Attending Provider Active Start: July 07, 2024 End: July 07, 2024 Dr. Cony Pride MD Referring Provider Active Start: July 07, 2024 End: July 07, 2024 Team Status: Inactive Member Role Status Dates No Primary Care Physician Primary Care Provider Active Start: August 17, 2024 End: August 17, 2024 Dr. Adriana Hadley DO Attending Provider Activ e Start: August 17, 2024 End: August 17, 2024 Dr. Adriana Hadley DO Referring Provider Activ e Start: August 17, 2024 End: August 17, 2024 Team Status: Inactive Member Role Status Dates No Primary Care Physician Primary Care Provider Active Start: August 19, 2024 End: August 19, 2024 Dr. Adriana Hadley DO Attending Provider Activ e Start: August 19, 2024 End: August 19, 2024 Dr. Adriana Hadley DO Referring Provider Activ e Start: August 19, 2024 End: August 19, 2024 Team Status: Inactive Member Role Status Dates No Primary Care Physician Primary Care Provider Active Start: August 24, 2024 End: August 24, 2024 Dr. Adriana Hadley DO Attending Provider Activ e Start: August 24, 2024 End: August 24, 2024 Dr. Adriana Hadley DO Referring Provider Activ e Start: August 24, 2024 End: August 24, 2024 Team Status: Inactive Member Role Status Dates No Primary Care Physician Primary Care Provider Active Start: September 08, 2024 End: September 08, 2024 No Primary Care Physician Referring Provider Active Start: September 08, 2024 End: September 08, 2024 Leslye Obregon CNM Attending Provider Active S tart: September 08, 2024 End: September 08, 2024 Team Status: Inactive Member Role Status Dates No Primary Care Physician Primary Care Provider Active Start: September 08, 2024 End: September 08, 2024 Lesley Obregon CNM Attending Provider Active S tart: September 08, 2024 End: September 08, 2024 Lesley Obregon CNM Referring Provider Active S tart: September 08, 2024 End: September 08, 2024 Team Status: Inactive Member Role Status Dates No Primary Care Physician Primary Care Provider Active Start: October 06, 2024 End: October 06, 2024 No Primary Care Physician Referring Provider Active Start: October 06, 2024 End: October 06, 2024 Lesley Obregon CNM Attending Provider Active S tart: October 06, 2024 End: October 06, 2024 Team Status: Inactive Member Role Status Dates No Primary Care Physician Primary Care Provider Active Start: November 03, 2024 End: November 03, 2024 No Primary Care Physician Referring Provider Active Start: November 03, 2024 End: November 03, 2024 Lesley Obregon CNM Attending Provider Active S tart: November 03, 2024 End: November 03, 2024 Team Status: Inactive Member Role Status Dates No Primary Care Physician Primary Care Provider Active Start: December 01, 2024 End: December 01, 2024 No Primary Care Physician Referring Provider Active Start: December 01, 2024 End: December 01, 2024 Dr. Cony Pride MD Attending Provider Active Start: December 01, 2024 End: December 01, 2024 Team Status: Inactive Member Role Status Dates No Primary Care Physician Primary Care Provider Active Start: December 01, 2024 End: December 01, 2024 Lesley Obregon CNM Attending Provider Active S tart: December 01, 2024 End: December 01, 2024 Lesley Obregon CNM Referring Provider Active S tart: December 01, 2024 End: December 01, 2024 Team Status: Inactive Member Role Status Dates No Primary Care Physician Primary Care Provider Active Start: December 14, 2024 End: December 14, 2024 Lesley Obregon CNM Attending Provider Active S tart: December 14, 2024 End: December 14, 2024 Lesley Obregon CNM Referring Provider Active S tart: December 14, 2024 End: December 14, 2024 Team Status: Active Member Role/Relationship Status Dates No Primary Care Physician Primary Care Provider Active Team Status: Inactive Member Role/Relationship Status Dates No Primary Care Physician Primary Care Provider Active Start: September 08, 2024 End: September 08, 2024 No Primary Care Physician Referring Provider Active Start: September 08, 2024 End: September 08, 2024 Lesley Obregon CNM Attending Provider Active S tart: September 08, 2024 End: September 08, 2024 Team Status: Inactive Member Role/Relationship Status Dates No Primary Care Physician Primary Care Provider Active Start: September 08, 2024 End: September 08, 2024 Lesley Obregon CNM Attending Provider Active S tart: September 08, 2024 End: September 08, 2024 Lesley Obregon CNM Referring Provider Active S tart: September 08, 2024 End: September 08, 2024 Team Status: Inactive Member Role/Relationship Status Dates No Primary Care Physician Primary Care Provider Active Start: October 06, 2024 End: October 06, 2024 No Primary Care Physician Referring Provider Active Start: October 06, 2024 End: October 06, 2024 Lesley Obregon CNM Attending Provider Active S tart: October 06, 2024 End: October 06, 2024 Team Status: Inactive Member Role/Relationship Status Dates No Primary Care Physician Primary Care Provider Active Start: November 03, 2024 End: November 03, 2024 No Primary Care Physician Referring Provider Active Start: November 03, 2024 End: November 03, 2024 Lesley Obregon CNM Attending Provider Active S tart: November 03, 2024 End: November 03, 2024 Team Status: Inactive Member Role/Relationship Status Dates No Primary Care Physician Primary Care Provider Active Start: December 01, 2024 End: December 01, 2024 No Primary Care Physician Referring Provider Active Start: December 01, 2024 End: December 01, 2024 Dr. Cony Pride MD Attending Provider Active Start: December 01, 2024 End: December 01, 2024 Team Status: Inactive Member Role/Relationship Status Dates No Primary Care Physician Primary Care Provider Active Start: December 01, 2024 End: December 01, 2024 Lesley Obregon CNM Attending Provider Active S tart: December 01, 2024 End: December 01, 2024 Lesley Obregon CNM Referring Provider Active S tart: December 01, 2024 End: December 01, 2024 Team Status: Inactive Member Role/Relationship Status Dates No Primary Care Physician Primary Care Provider Active Start: December 14, 2024 End: December 14, 2024 Lesley Obregon CNM Attending Provider Active S tart: December 14, 2024 End: December 14, 2024 Lesley Obregon CNM Referring Provider Active S tart: December 14, 2024 End: December 14, 2024 Team Status: Inactive Member Role/Relationship Status Dates No Primary Care Physician Primary Care Provider Active Start: December 29, 2024 End: December 29, 2024 No Primary Care Physician Referring Provider Active Start: December 29, 2024 End: December 29, 2024 Dr. Ardiana Hadley , DO Attending Provider Activ e Start: December 29, 2024 End: December 29, 2024 Goals (unrecognized section and content) Goals may be documented in a n alternate sectionGoals may be documented in an alternate sectionGoals may be documented in an alternate sectionGoals may be documented in an alternate sectionGoals may be documented in an alternate sectionGoals may be documented in an alternate sectionGoals may be documented in an alternate sectionGoals may be documented in an alternate section FOR RECORDS PERTAINING TO PATIENTS WHO ARE OR HAVE BEEN ENROLLED IN A CHEMICAL DEPENDENCY/SUBSTANCEABUSE PROGRAM, SOME INFORMATION MAY BE OMITTED. This clinical summary was aggregated from multiple sources. Caution should be exercised in using it in the provision of clinical care. This summary normalizes information from multiple sources, and as a consequence, information in this document may materially change the coding, format and clinical context of patient data. In addition, data may be omitted in some cases. CLINICAL DECISIONS SHOULD BE BASED ON THE PRIMARY CLINICAL RECORDS. [employer] provides no warranty or guarantee of the accuracy or completeness of information in this document.
== END | disposition home or self-care (01) ==
PROVIDERS: Visit Provider Obstetrics & Gynecology
DX: O09.91 Supervision of high risk pregnancy, unspecified, first trimester (principal); Z3A.00 Weeks of gestation of pregnancy not specified; Z13.1 Encounter for screening for diabetes mellitus
CPT/HCPCS: 36415; 82950; 85025; 86703; 86780

== ENCOUNTER → 2025-01-26 | Outpatient (CLI) | payer BC, SELFPAY ==
[2025-01-26 16:31] LABS: Hepatitis B Surface Antigen Nonreactive (Nonreactive); Hepatitis C Antibody Nonreactive (Nonreactive)
== END | disposition home or self-care (01) ==
LOC: LAB 15:23
PROVIDERS: Referring Provider Advanced Practice Midwife; Visit Provider Advanced Practice Midwife
DX: O09.91 Supervision of high risk pregnancy, unspecified, first trimester (principal); Z3A.00 Weeks of gestation of pregnancy not specified
CPT/HCPCS: 86803; 86850; 86900; 86901; 87340

== ENCOUNTER → 2025-02-15 | Outpatient (CLI) | payer BC, SELFPAY ==
--- NOTE | 2025-02-15 15:25 | US_ITS ---
PROCEDURE: OB LIMITED WITH BIOMETRICS 02/15/2025 REASON FOR EXAM: S>D Large for gestational age. TECHNIQUE: OB LIMITED WITH BIOMETRICS COMPARISON: Prior study dated December 01, 2024 and December 14, 2024. FINDINGS LMP: July 13, 2024. Number: 1 Position: Vertex Placental Position: Posterior and not low-lying Placental Abnormalities: No evidence of previa. DIMENSIONS: Biparietal Diameter: 7.53 cm: 30 weeks and 1 day: 17 percentile/ Head Circumference: 29.5 cm: 32 weeks and 4 days: 58 percentile/ Abdominal Circumference: 29.87 cm: 33 weeks and 6 days: 98 percentile/ Femur Length: 6.08 cm: 31 weeks and 4 days: 52nd percentile/ ESTIMATED WEIGHT: 2028 g plus/-304 g ESTIMATED WEIGHT PERCENTILE (24+ weeks): 88 ESTIMATED GESTATIONAL AGE: Baseline: 31 weeks and 0 days By Ultrasound: 32 weeks and 0 days ESTIMATED DATE OF DELIVERY: Baseline: April 19, 2025 By Ultrasound: April 12, 2025 BIOPHYSICAL ASSESSMENT: Amniotic Fluid Volume: 4.8 cm Amniotic Fluid Index: 17.8 cm (8-24 cm normal range) Cardiac Motion: 155 beats per minute (average) Trunk and Limb Motion: Present. MATERNAL ANATOMY: Adnexa: Neither maternal ovary is successfully identified. US/OB Limited With Biometrics IMPRESSION: Single live intrauterine gestation with a mean gestational age of 32 weeks. Reading Location: [place] [id number]
== END | disposition home or self-care (01) ==
LOC: US 15:24
PROVIDERS: Referring Provider Advanced Practice Midwife; Visit Provider Advanced Practice Midwife
DX: O26.849 Uterine size-date discrepancy, unspecified trimester (principal); Z3A.00 Weeks of gestation of pregnancy not specified
CPT/HCPCS: 76816

== ENCOUNTER → 2025-03-22 | Outpatient (CLI) | payer BC, SELFPAY | END | disposition home or self-care (01) | LOC: LABSPEC 16:40 | PROVIDERS: Referring Provider Obstetrics & Gynecology; Visit Provider Obstetrics & Gynecology | DX: O09.91 Supervision of high risk pregnancy, unspecified, first trimester (principal); Z3A.00 Weeks of gestation of pregnancy not specified | CPT/HCPCS: 87081 ==

== ENCOUNTER → 2025-04-10 | Outpatient (CLI) | payer BC, SELFPAY ==
--- NOTE | 2025-04-10 15:29 | US_ITS ---
PROCEDURE: OB LIMITED WITH BIOMETRICS 04/10/2025 REASON FOR EXAM: UTERINE SIZE DATE DISCREPANCY, BMI TECHNIQUE: Procedure Code: USOBGROWTH Modality: US Procedure: OB LIMITED WITH BIOMETRICS COMPARISON: Prior study dated February 15, 2025. FINDINGS Number: 1 Position: Vertex Placental Position: Posterior and not low-lying Placental Abnormalities: No evidence of previa. DIMENSIONS: Biparietal Diameter: 9.2 cm: 37 weeks and 3 days: 46 percentile/ Head Circumference: 33.9 cm: 38 weeks and 6 days: 39 percentile/ Abdominal Circumference: 39 cm:/99.9 percentile Femur Length: 7.3 cm: 37 weeks and 4 days: 27 percentile/ ESTIMATED WEIGHT: 4238 g plus/-636 g. ESTIMATED WEIGHT PERCENTILE (24+ weeks): 97 ESTIMATED GESTATIONAL AGE: Baseline: 38 weeks and 5 days By Ultrasound: 38 weeks and 0 days ESTIMATED DATE OF DELIVERY: Baseline: April 19, 2025 By Ultrasound: April 24, 2025 BIOPHYSICAL ASSESSMENT: Amniotic Fluid Volume: 5.5 cm Amniotic Fluid Index: 12.1 (8-24 cm normal range) Cardiac Motion: 138 beats per minute (average) Trunk and Limb Motion: Present. MATERNAL ANATOMY: Adnexa: Neither maternal ovary is successfully identified. US/OB Limited With Biometrics IMPRESSION: Single live intrauterine gestation with a mean gestational age of 38 weeks. Reading Location: [id number]
== END | disposition home or self-care (01) ==
LOC: US 15:28
PROVIDERS: Referring Provider Obstetrics & Gynecology; Visit Provider Obstetrics & Gynecology
DX: O99.210 Obesity complicating pregnancy, unspecified trimester (principal); O26.849 Uterine size-date discrepancy, unspecified trimester; Z3A.00 Weeks of gestation of pregnancy not specified
CPT/HCPCS: 76816

== ENCOUNTER 2025-04-11 10:10 | Outpatient (CLI) | payer BC, SELFPAY ==
[2025-04-11 10:28] VITALS: BP 121/65; PULSE 100
[2025-04-11 10:29] VITALS: PULSE 80; RESP 14; TEMP 37.3; O2SAT 98; O2SAT 99
[2025-04-11 10:41] VITALS: BMI 43.1
--- NOTE | 2025-04-12 00:12 | OB.TRI.PN ---
Progress Notes Date of Service: 04/11/25 Progress Note: Patient presents for triage evaluation secondary to contractions FHT: 150 Moderate variability reactive no decelerations category I tracing [place]: q 3-5 Contractions Assessment and plan: 38 weeks false labor no change Reactive NST, reassuring maternal and status patient discharged to home to follow-up wednesday for IOL due to macrosomia. See problem list details for additional plan information. Charges/Coding Procedures Urinary/Genital 52xxx-59xxx: [id number] non-stress test Interp Assessment & Plan (1) Large for gestational age fetus: COMMENT: EFW 4200g discussed IOL next week if no spontaneous labor. no diabetes present. (2) Supervision of high risk in first trimester: COMMENT: PRR , SANTOSH 04/19/25 boy Gio Matta [place] (3) : QUALIFIERS: Weeks of gestation: 38 weeks Qualified Code(s): Z3A.38 - 38 weeks gestation of COMMENT: Neg GBS DOC ONLY- NIPT w gender/carrier- declines (4) Obesity affecting : COMMENT: HgbA1c ordered with NOB. Encouraged healthy weight gain (5) Rh negative status during : COMMENT: Rhogam given 06/30/24 due to bleeding in prior /miscarriage, Given 01/26/25
== END 2025-04-11 12:30 | disposition home or self-care (01) ==
LOC: WPOUT 10:21 → WP 10:22
PROVIDERS: Referring Provider Obstetrics & Gynecology; Visit Provider Obstetrics & Gynecology
DX: O47.1 False labor at or after 37 completed weeks of gestation (principal); Z79.899 Other long term (current) drug therapy; O99.213 Obesity complicating pregnancy, third trimester; Z3A.38 38 weeks gestation of pregnancy
CPT/HCPCS: 59025; 59050; 99221; G0378

== ENCOUNTER 2025-04-12 05:43 | Inpatient (IN) | payer BC, SELFPAY ==
[2025-04-12] VITALS (18 sets, daily range): BP systolic 102–122; BP diastolic 55–72; PULSE 78–109; RESP 16–18; TEMP 36.7–37.6; O2SAT 97; BMI 42.3; BMI 20251009.0; BMI 727.0
--- NOTE | 2025-04-12 05:26 | HP.PCM.OB_ITS ---
HPI - General HPI Narrative GIN OLEA, is a 30 F who presents IAL regular ctx bloody show, good fm no LOF Maternal Data Information SANTOSH Calculator Estimated Delivery Date Method Current WG Current Estimate 04/19/25 Ultrasound #1 39w 0d Other Estimates 04/20/25 Ultrasound #2 38w 6d PFSH PFSH Medical History Date of last menstrual period (LMP) unknown Supervision of high risk in first trimester Hx: UTI (urinary tract infection) Home Medications ?Medication ?Instructions ?Recorded ?Last Taken ?Type PNV 158-iron 13.5 mg-folic 0.5 cap PO 08/31/24 5 History mg-omega 3-dha 150 mg-epa-fish capsule (Natavi PNV) blood sugar diagnostic (Blood #120 ea 02/19/25 Unknown Rx Glucose Test strips) blood-glucose meter #1 ea 02/19/25 Unknown Rx famotidine 40 mg tablet (Pepcid) 40 mg PO DAILY 04/10/25 History Allergy/AdvReac Type Severity Reaction Status Date / Time No Known Allergies Allergy Verified 04/11/25 10:42 Family History Father Hypertension Grandfather Hypertension Social History adopted: No household members: spouse and children housing: house number of children: 1 current occupational status: employed 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 current occupational exposures/hazards: No pets and animals: Yes (Not managing litterbox ) pets and animals: cat(s) and dog(s) history of recent travel: No sexually active: Yes Smoking Status: Never smoker alcohol intake: current details: occasionally- not while substance use type: does not use well-balanced diet: daily or most days caffeine: Yes (occasionally) Type: coffee Number of servings: 1 eating out: 1-3 times/week during the past year weight has: remained stable what type of physical activity do you participate in: walking, yoga and weight training frequency: 1-2 times per week duration: 15-30 minutes/day fam/orthodoxy: Islam seatbelt use: always do you feel safe at home: Yes additional social history: - [place], was in [facility] 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 Date Name GA/Weeks Outcome Route Bth Weight Gen Labor Lgth Anesthesia Del Rcatn Provider FOB 03/04/23 Paxton 40 live - full term 8lbs 9oz Female [facility] Marcanthony Delivery Date: 03/04/23 Last Updated by: Carisa Kevin IOL Visit Details Expected Delivery Route/Plan Labor Preferences- CB/BF classes: [] labor support person: [] labor intervention preferences: [] pain management options preferred: [] cut cord/dad catch: [] : [] PP control planned: [] discussed possible routes of delivery and associated risks: [] special requests: [] Plans Covid status: [] Flu vaccine: [] Tdap vaccine: GIVEN Rhogam: [] LARC form signed: given movement and labor precautions reviewed. Problem list reviewed and updated with the most current plan of care details and appropriate orders placed. Relevant counseling for the gestational age provided. Continue routine care and follow up unless otherwise noted in visit notes/problem list details OB Flowsheet Initial Weight: Not Recorded Date -?-?-?-?-?-?-?-?-?-?-?-?- EGA Weight BP Urine Prot -?--?-?-?-?-?-?-?-?-?-?-?- Glucose FHR FuHt Pres Dilation -?-?-?-?-?-?-?--?-?-?-?-?- Effaced St Visit Note 09/08/24 -?-?-?-?-?-?-?-?-?-?-?-?- 8w 1d 236 lb 4 oz 116/80 -?-?-?-?-?-?-?-?-?-?-?-?- 165 -?-?-?-?-?-?-?-?-?-?-?-?- KW- CRL cons wit h early US. declines NIPT. 10/06/24 -?-?-?-?-?-?-?-?-?-?-?-?- 12w 1d 234 lb 115/75 Negative -?-?-?-?-?-?-?-?-?-?-?-?- Negative 172 -?-?-?-?-?-?-?-?-?-?-?-?- KW-work in for J V. no vb/cramping. anatomy US ordered through hospital per her request. 11/03/24 -?-?-?-?-?-?-?-?-?-?-?-?- 16w 1d 233 lb 6 oz 109/68 Nega tive -?-?-?-?-?-?-?-?-?-?-?-?- Negative 146 -?-?-?-?-?-?-?-?-?-?-?-?- KW- no vb/crampi ng. US scheduled. Discussed AFP-declined. 12/01/24 -?-?-?-?-?-?-?-?-?-?-?-?- 20w 1d 237 lb 4 oz 117/65 Nega tive -?-?-?-?-?-?-?-?-?-?-?-?- Negative 145 -?-?-?-?-?-?-?-?-?-?-?-?- SM- no vb lof cr amping US today 12/29/24 -?-?-?-?-?-?-?-?-?-?-?-?- 24w 1d 241 lb 4 oz 102/68 Nega tive -?-?-?-?-?-?-?-?-?-?-?-?- Negative 166 26 -?-?-?-?-?-?-?-?-?-?-?-?- JV- no lof, vagi nal bleeding or dec fm. 01/26/25 -?-?-?-?-?-?-?-?-?-?-?-?- 28w 1d 112/74 Negative -?-?-?-?-?-?-?-?-?-?-?-?- Negative 160 30 -?-?-?-?-?-?-?-?-?-?-?-?- KW- no vb/lof/ct x. good fm. LARC/Rhogam and glucose normal. frustrated that she had to get additional lab draw because lab missed T&S for rhogam. 02/09/25 -?-?-?-?-?-?-?-?-?-?-?-?- 30w 1d 248 lb 4 oz 100/68 Nega tive -?-?-?-?-?-?-?-?-?-?-?-?- Negative 130 33 -?-?-?-?-?-?-?-?-?-?-?-?- KW-no vb/lof/ctx . good fm. growth US for S>D 02/22/25 -?-?-?-?-?-?-?-?-?-?-?-?- 32w 0d 250 lb 107/66 Negative -?-?-?-?-?-?-?-?-?-?-?-?- Negative 130 34 Cephalic -?-?-?-?-?-?-?-?-?-?-?-?- Sm- no vb lof go od fm no regular ctx, BS checked and WNL Sm- no vb lof good fm no reg ular ctx, BS checked and WNL. discussed would not check growth again unless measurements are off. patient requesitng doc only 03/09/25 -?-?-?-?-?-?-?-?-?-?-?-?- 34w 1d 253 lb 112/75 Negative -?-?-?-?-?-?-?-?-?-?-?-?- Negative 130 34 Cephalic -?-?-?-?-?-?-?-?-?-?-?-?- SM- no vb lof go od fm no regular ctx 03/22/25 -?-?-?-?-?-?-?-?-?-?-?-?- 36w 0d 255 lb 8 oz 111/74 Nega tive -?-?-?-?-?-?-?-?-?-?-?-?- Negative 143 37.5 36.5 Cephalic -?-?-?-?-?-?-?-?-?-?-?-?- JV- no lof, vagi nal bleeding, or dec fm. gbs today. declines pelvic exam. JV- no lof, vaginal bleeding , or dec fm. gbs today. declines pelvic exam. measuring normally today and declines repeat growth scan. 03/30/25 -?-?-?-?-?-?-?-?-?-?-?-?- 37w 1d 254 lb 6 oz 106/72 Nega tive -?-?-?-?-?-?-?-?-?-?-?-?- Negative 135 39 Cephalic -?-?-?-?-?-?-?-?-?-?-?-?- kw- no vb/lof/ct x. good fm. 04/05/25 -?-?-?-?-?-?-?-?-?-?-?-?- 38w 0d 255 lb 2 oz 108/72 Nega tive -?-?-?-?-?-?-?-?-?-?-?-?- Negative 140 40 Cephalic 1 -?-?-?-?-?-?-?-?-?-?-?-?- 0 -4 SM- no vb lof good fm no regluar ctx NST FHR Rate Baby A Baseline: 140 Variability:: Moderate Accelerations:: 15 x 15 Decelerations:: None NST Reactive:: Yes FHR Category:: Category I Uterine Activity:: q3-5 ROS Constitutional Constitutional: Reports systems reviewed and no addt'l complaints, except as documented ENT HEENT: Reports systems reviewed and no addt'l complaints, except as documented Cardiovascular Cardiovascular: Reports systems reviewed and no addt'l complaints, except as documented Respiratory/Chest Respiratory/Chest: Reports systems reviewed and no addt'l complaints, except as documented Gastrointestinal Gastrointestinal: Reports systems reviewed and no addt'l complaints, except as documented and nausea; Denies abdominal pain Genitourinary Genitourinary: Reports systems reviewed and no addt'l complaints, except as documented, contractions Details: present and frequency (regular ) and movement Details: present Musculoskeletal Musculoskeletal: Reports systems reviewed and no addt'l complaints, except as documented Integumentary Integumentary: Reports as per HPI Neurologic Neurologic: Reports systems reviewed and no addt'l complaints, except as documented Endocrine Endocrinology: Reports systems reviewed and no addt'l complaints, except as documented Vital Signs Vital Signs Vital Signs: Weight Weight: 254 lb 2 oz Body Mass Index (BMI) 42.3 Physical Exam Const alert, oriented x3 and healthy appearing Constitutional Narrative: uncomfortable with contractions HEENT normocephalic and moist oral mucous membranes Head and Scalp: atraumatic Neck full ROM, no lymphadenopathy, supple and thyroid normal General: trachea midline Thyroid: thyroid normal Lymph Lymphatic: no lymphadenopathy noted Chest inspection of chest normal Resp normal respiratory effort Cardio regular rate GI soft to palpation and non-tender GI Narrative: gravid Inspection: gravid external exam normal Bimanual Exam - Vag & Uterus: uterus non-tender Manual OB Exam: estimated gestational size appropriate, presentation cephalic, dilated, effaced and station Extremity normal to inspection General Extremity: Negative for edema Skin no rashes or lesions noted Neuro deep tendon reflexes 2+ bilaterally Motor Exam: strength 5/5 throughout and clonus absent Psych mental status grossly normal Labs Labs Labs: Blood Type A NEGATIVE Antibody Screen NEGATIVE Hct, (37-47) 34.9 % L Hgb, (12.0-15.0) 11.3 g/dL L Obstetrics Ultrasound Syphilis Total Ab, (Nonreactive) Nonreactive Rubella IgG Antibody, (Nonreactive) REAC Hep Bs Antigen, (Nonreactive) Nonreactive Hepatitis C Antibody, (Nonreactive) Nonreactive Chlamydia DNA (AUDREY), (Negative) Negative N.gonorrhoeae DNA (AUDREY), (Negative) Negative HIV 1&2 Antibody, (Nonreactive) Nonreactive Glucose 1 Hr 50 gm, (70-140) 109 mg/dL Assessment & Plan (1) Large for gestational age fetus: COMMENT: EFW 4200g discussed IOL next week if no spontaneous labor. no diabetes present. (2) Supervision of high risk in first trimester: COMMENT: PRR , SANTOSH 04/19/25 boy Gio WARREN Paxton [place] (3) : QUALIFIERS: Weeks of gestation: 38 weeks Qualified Code(s): Z3A.38 - 38 weeks gestation of COMMENT: Neg GBS DOC ONLY- NIPT w gender/carrier- declines (4) Obesity affecting : COMMENT: HgbA1c ordered with NOB. Encouraged healthy weight gain (5) Rh negative status during : COMMENT: Rhogam given 06/30/24 due to bleeding in prior /miscarriage, Given 01/26/25 (6) Active labor at term: PLAN: Plan Patient presents IAL, plan expectant management for , pitocin/AROM PRN if needed. Pain management: open to epidural if needed. GBS neg. Management of any complications: none I have reviewed the PFSH and made any clinically relevant updates.
[2025-04-12 06:22] LABS: Hematocrit 38.2 % (37-47); Hemoglobin 12.7 g/dL (12.0-15.0); Immature Granulocytes Count 0.090 X10^3/uL (0.0-0.0); Mean Corp Hgb Conc 33.2 g/dL (32-36); Mean Corpuscular Volume 82.3 fL (81-99); Mean Platelet Vol. 11.3 fl (6.2-12.0); NRBC Flagged by Analyzer 0 % (0-5); POSITIVE COUNT YES; Platelet Count 235 K/mm3 (150-450); RBC Distribution Width CV 13.6 % (11.6-14.6); RBC Distribution Width SD 40.3 fl (35.1-43.9); Red Blood Count 4.64 M/mm3 (4.2-5.4); White Blood Count 12.1 K/mm3 (4.4-11.0)
[2025-04-12 07:32] LABS: Syphilis Antibodies Nonreactive (Nonreactive)
[2025-04-12 07:33] LABS: Differential Comment SCANNED; Differential Indicated SCAN CRITERIA MET
--- NOTE | 2025-04-12 08:53 | PCM.PN.BLA ---
Progress Note patient has been sitting in the tub for a while and now consents to AROM. current tracing: FHT:130's Moderate variability reactive, occasional early decelerations, rare late decelerations [place]: sporatic Contractions q 1-6 minutes cx;8/80/-1, membranes ruptured and clear fluid returned. A/P: patient requesting nitrous gas and managing contractions well. expect this morning.
[2025-04-12] MEDS: Oxytocin 15 Units/NS 250ml 15 UNITS/250 ML IV.SOLN 83 UNITS IV (11:47)
--- NOTE | 2025-04-12 12:10 | EX.PCM.OBVAG ---
Assessment & Plan (1) Active labor at term: (2) Large for gestational age fetus: COMMENT: EFW 4200g discussed IOL next week if no spontaneous labor. no diabetes present. (3) : QUALIFIERS: Weeks of gestation: 38 weeks Qualified Code(s): Z3A.38 - 38 weeks gestation of COMMENT: Neg GBS DOC ONLY- NIPT w gender/carrier- declines (4) Rh negative status during : COMMENT: Rhogam given 06/30/24 due to bleeding in prior /miscarriage, Given 01/26/25 (5) Obesity affecting : COMMENT: HgbA1c ordered with NOB. Encouraged healthy weight gain (6) Supervision of high risk in first trimester: COMMENT: PRR , SANTOSH 04/19/25 boy Gio Matta [place] Maternal Data Information SANTOSH Calculator Estimated Delivery Date Method Current WG Current Estimate 04/19/25 Ultrasound #1 39w 0d Other Estimates 04/20/25 Ultrasound #2 38w 6d Final SANTOSH: 04/19/25 Gestational age: 39 weeks 0 days Vaginal Delivery Maternal Presentation Maternal Presentation: Active Labor Type of Induction: Amniotomy Vaginal Delivery Information Procedure Performed: Spontaneous Vaginal Delivery and Shoulder Dystocia Maneuvers Delivery maneuver performed for shoulder dystocia: Charly maneuver and Posterior arm extraction Head to body interval: 00:15 Surgeon/Practitioner: Adriana Hadley Date of Procedure: 04/12/25 Pre-Procedure Diagnosis: active labor at term, LGA, 39 weeks 0 days Post-Procedure Diagnosis: active labor at term, LGA, 39 weeks 0 days , minor shoulder dystocia Type of anesthesia: None Estimated Blood Loss: 50cc Findings Description of procedure: Patient began pushing and delivered the head in the COLEMAN presentation. The head was delivered atraumatically and a shoulder dystocia was identified immediately. McRobert's followed by delivery of the posterior arm and easily reduced the dystocia without complication followed by the rest of the . The was placed on the maternal abdomen. Delayed cord clamping was employed for approximately 60 seconds. Cord was clamped and cut and gentle traction was applied to the cord and the placenta delivered spontaneously immediately following it was noted to be intact with three-vessel cord. The perineum and vagina were inspected and noted to have no laceration. EBL was 50cc. Patient and infant tolerated delivery well. 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
--- NOTE | 2025-04-12 12:16 | DCINST_ITS ---
Discharge Instructions DC O2, CPAP, BIPAP needs Home O2 Discharge instructions: No Dressing / Incision Discharge Activity: Return to Normal Activity, May Not Drive (while taking narcotic pain medications.) and May Shower May resume sexual activity in: 4-6 weeks Dressing / Incision Call your doctor if your incision/area has: Continuous Slow Oozing, Sudden Increased Bleeding, Increased Pain/ Swelling, Increased Redness and Foul Smelling Discharge Follow Up Care Please Follow Up With: Adriana Hadley DO When: Call [phone] to make an appointment with your doctor in 6 weeks. If you had elevated blood pressure or 4th degree laceration, you will need to be seen in 2 weeks. Test Results: Test results from this visit will be discussed in further detail at your follow- up appointment, if applicable. Discharge Plan Admission Admit Date/Time: 04/12/25 05:43 Primary Reason for Your Visit: Vaginal delivery Attending Provider: Adriana Hadley Primary Care Provider: Care Physician,[place] Primary Discharge Orders/Prescriptions Prescriptions: No Action Natavi PNV 13.5 mg iron- 0.5 mg-150 mg capsule PO famotidine [Pepcid] 40 mg tablet 40 mg PO DAILY (DME) Blood Glucose Test Strip See Rx Instructions .MEDSUPPLY Qty: 120 5RF Rx Instructions: As directed-fasting & 2 hr post meals (DME) blood-glucose meter Misc See Rx Instructions .MEDSUPPLY Qty: 1 0RF Rx Instructions: As directed- Test fasting and 2 hours after meals Referrals / Follow Up: Care Physician,No Primary [Primary Care Provider, Medical] Disposition Disposition (needs filled in before D/C Order can be placed): Home, Self Care
[2025-04-12] MEDS: Rho(D) Immune Globulin 300 MCG (1500 Unit) Syringe IV (17:06)
[2025-04-12] MEDS: 0.9% Saline Lock 10 ML Syringe IV (17:06)
[2025-04-13 00:29] VITALS: BP 125/42; PULSE 74; RESP 16; O2SAT 100
[2025-04-13 04:30] VITALS: BP 98/40; PULSE 72; RESP 16; TEMP 36.7; O2SAT 98
--- NOTE | 2025-04-13 07:58 | PN.OBGYN_ITS ---
Subjective Subjective Patient doing well without complaints. Tolerating PO. Ambulating and voiding without difficulty. Feeding well. Denies chest pain, shortness of breath, calf pain/swelling, fevers, chills, lightheadedness. Objective Data Objective Data Vital Signs: Vital Signs Temp Pulse Resp BP Pulse Ox O2 Del Method 98.0 F 72 16 98/40 L 98 Room Air 04/13/25 04:30 04/13/25 04:30 04/13/25 04:30 04/13/25 04:30 04/13/25 04:30 04/13/25 04:30 Oxygen Delivery Method Room Air Weight: 254 lb 2 oz Body Mass Index (BMI) 42.3 Intake & Output: Intake and Output for Last 24 Hours 04/11/25 04/12/25 04/13/25 23:59 23:59 23:59 Intake Total 215.8 / 215.8 Output Total 1250 / 1250 Balance -1034.2 / -1034.2 Lab / Micro Data Attestation: I reviewed the patient's lab results. 04/12/25 05:40 Labs: Laboratory Results - last 24 hr 04/12/25 07:04: Blood Type A NEGATIVE, Antibody Screen NEGATIVE 04/12/25 14:35: Screen NEGATIVE, Baby's Blood Type A POSITIVE, Baby's BRISSA NEGATIVE ROS Constitutional Constitutional: Reports systems reviewed and no addt'l complaints, except as documented; Denies anorexia or headache(s) Cardiovascular Cardiovascular: Reports systems reviewed and no addt'l complaints, except as documented; Denies dizziness, dyspnea, nausea or tachypnea Respiratory/Chest Respiratory/Chest: Reports systems reviewed and no addt'l complaints, except as documented; Denies cough, dyspnea, shortness of breath at rest or tachypnea Gastrointestinal Gastrointestinal: Reports systems reviewed and no addt'l complaints, except as documented; Denies abdominal pain, constipation or nausea Genitourinary Genitourinary: Reports systems reviewed and no addt'l complaints, except as documented; Denies burning urination, difficulty urinating, dysuria, urinary frequency or urinary incontinence Musculoskeletal Musculoskeletal: Reports systems reviewed and no addt'l complaints, except as documented Integumentary Integumentary: Reports systems reviewed and no addt'l complaints, except as documented Neurologic Neurologic: Reports systems reviewed and no addt'l complaints, except as documented; Denies abnormal speech, dizziness or headache(s) Psychiatric Psychiatric: Reports systems reviewed and no addt'l complaints, except as documented Endocrine Endocrinology: Reports systems reviewed and no addt'l complaints, except as documented Hematologic/Lymphatic Hematologic/Lymphatic: Reports systems reviewed and no addt'l complaints, except as documented Physical Exam Const alert, oriented x3 and no apparent distress Neck full ROM Resp normal respiratory effort, normal air movement and no retractions Effort and Inspection: able to speak in complete sentences and symmetric chest movement GI soft to palpation Bladder / Kidney Exam: bladder normal to palpation Uterus Palpation: uterus fundus firm Extremity normal to inspection and full ROM Psych mental status grossly normal, thought process normal and cooperative Assessment & Plan (1) Vaginal delivery: COMMENT: SM IAL 40 PLAN: s/p PPD # 1 1. routine post delivery care 2. breast feeding- support given 3. rh positive 4. rubella immune 5. discharge home (2) Large for gestational age fetus: COMMENT: EFW 4200g discussed IOL next week if no spontaneous labor. no diabetes present. (3) : QUALIFIERS: Weeks of gestation: 38 weeks Qualified Code(s): Z 3A.38 - 38 weeks gestation of COMMENT: Neg GBS DOC ONLY- NIPT w gender/carrier- declines (4) Rh negative status during : COMMENT: Rhogam given 06/30/24 due to bleeding in prior /miscarriage, Given 01/26/25 (5) Obesity affecting : COMMENT: HgbA1c ordered with NOB. Encouraged healthy weight gain (6) Supervision of high risk in first trimester: COMMENT: PRR , SANTOSH 04/19/25 boy Gio [place] Charges/Coding Multi Select Codes Urinary/Genital Urinary/Genital CPT Codes: No Charge
[2025-04-13 08:20] VITALS: BP 109/73; PULSE 77; RESP 16; TEMP 36.8; O2SAT 97
[2025-04-13 11:58] VITALS: BP 114/55; PULSE 68; RESP 16; TEMP 36.8; O2SAT 97
== END 2025-04-13 15:35 | disposition home or self-care (01) | DRG 807 ==
LOC: WP 06:00
PROVIDERS: Obstetrics & Gynecology; Admitting Provider Obstetrics & Gynecology; Referring Provider Obstetrics & Gynecology; Visit Provider Obstetrics & Gynecology
DX: O36.63X0 Maternal care for excessive fetal growth, third trimester, not applicable or unspecified (principal); Z37.0 Single live birth; O26.893 Other specified pregnancy related conditions, third trimester; O99.214 Obesity complicating childbirth; Z67.91 Unspecified blood type, Rh negative; O76 Abnormality in fetal heart rate and rhythm complicating labor and delivery; O66.0 Obstructed labor due to shoulder dystocia; Z3A.39 39 weeks gestation of pregnancy
CPT/HCPCS: 36415; 59025; 59050; 85025; 85461; 86780; 86850; 86900; 86901; 90384; 99221; A4216; G0378; J2790; J2791